=== PATIENT | male | born 1965 | race Caucasian/White ===

== ENCOUNTER → 2016-11-10 | Outpatient (CLI) | payer OTHER ==
--- NOTE | 2016-11-10 12:02 | XR ---
EXAMINATION TYPE: XR shoulder complete LT DATE OF EXAM: 11/10/2016 11:57 AM COMPARISON: NONE HISTORY: Pain TECHNIQUE: Three views are submitted. FINDINGS: The osseous structures are intact. There is no acute fracture or dislocation. Hypertrophic change of the AC joint could result in impingement of the rotator cuff. IMPRESSION: 1. No acute process. 2. Hypertrophic change of the AC joint. Consider rotator cuff injury.
== END ==
LOC: RADXRMAIN 11:43
PROVIDERS: ATTEND Emergency Medicine
DX: S43.402A Unspecified sprain of left shoulder joint, initial encounter (principal)

== ENCOUNTER → 2016-11-18 | Outpatient (CLI) | payer OTHER ==
--- NOTE | 2016-11-18 09:32 | MR ---
EXAMINATION TYPE: MR shoulder LT wo con DATE OF EXAM: 11/18/2016 9:22 AM COMPARISON: X-rays 11/14/2016 HISTORY: Left shoulder pain TECHNIQUE: Multiplanar, multisequence imaging of the left shoulder is performed without contrast. FINDINGS: Rotator Cuff: Subscapularis demonstrates increased signal near its insertion compatible with tendinos is. Partial intrasubstance tearing excluded. Supraspinatus and infraspinatus tendons are intact with no evidence of tear. There is signal along the undersurface of the supraspinatus tendon Acromioclavicular Joint: Hypertrophic change of the AC joint does result in mild mass effect upon the supraspinatus muscle. Glenohumeral Joint: Glenohumeral joint is maintained. Inferior glenohumeral ligament. No sizable join t effusion. Labrum: The labrum appears grossly intact given limitation of non-arthrogram study. Biceps Tendon: There is increased fluid surrounding the biceps tendon and degree of subluxation of th e tendon from the groove. Biceps anchor intact. Intracapsular portion demonstrates increased signal. Bone marrow signal: Benign cystic change involving the humerus.. Other: No additional significant abnormality is appreciated. IMPRESSION: 1. Bicipital tendinosis with subluxation of the tendon bicipital groove. 2. Subscapularis tendinosis with partial intrasubstance tear near the insertion suspected with no ret raction or through thickness tear. 3. Mild impingement secondary to hypertrophic change of the AC joint. 4. Tendinosis spinatus tendon with no definite through thickness tear or retraction
== END | disposition home or self-care (01) ==
LOC: RADMRIMAIN 08:43
PROVIDERS: ATTEND Orthopaedic Surgery
DX: S46.912A Strain of unspecified muscle, fascia and tendon at shoulder and upper arm level, left arm, initial encounter (principal); M67.814 Other specified disorders of tendon, left shoulder

== ENCOUNTER → 2017-09-18 | Outpatient (CLI) | payer BC ==
[2017-09-18 13:49] LABS: Basophils % (A) 1 %; Eosinophils % (A) 1 %; HGB 16.3 gm/dL (13.0-17.5); Lymphocytes # (A) 1.2 k/uL (1.0-4.8); Lymphocytes % (A) 23 %; MCH 30.2 pg (25.0-35.0); MCHC 31.9 g/dL (31.0-37.0); MCV 94.4 fL (80.0-100.0); Mean Platelet Volume 7.8; Monocytes # (A) 0.2 k/uL (0-1.0); Monocytes % (A) 4 %; Neutrophils # (A) 3.8 k/uL (1.3-7.7); Neutrophils % (A) 70 %; Platelet Count 186 k/uL (150-450); RBC 5.41 m/uL (4.30-5.90); RDW 14.2 % (11.5-15.5); WBC 5.4 k/uL (3.8-10.6)
[2017-09-18 14:11] LABS: Potassium 4.3 mmol/L (3.5-5.1)
== END | disposition home or self-care (01) ==
LOC: LABPAT 13:16
PROVIDERS: ATTEND Orthopaedic Surgery
DX: Z01.812 Encounter for preprocedural laboratory examination (principal); M23.92 Unspecified internal derangement of left knee
CPT/HCPCS: 36415; 80051; 85025

== ENCOUNTER → 2017-09-22 | Day surgery (SDC) | payer BC ==
[2017-09-14 16:31] VITALS: BMI 25.8
--- NOTE | 2017-09-21 10:22 | HP ---
HISTORY AND PHYSICAL CHIEF COMPLAINT: Left knee pain. 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 He notes he tripped over a gas line at a gas station and twisted his knee. He has had pain since. He notes intermittent giving way. He notes it does limit him. He has tried medications with only partial temporary relief. PAST MEDICAL HISTORY: Significant for asthma and previous deep venous thrombosis. PAST SURGICAL HISTORY: Significant for right knee arthroscopy with ACL reconstruction. CURRENT MEDICATIONS: 1. Aspirin. 2. Zocor. 3. Ibuprofen. He denies drug allergies. FAMILY HISTORY: Significant for diabetes and heart disease. SOCIAL HISTORY: Negative for current tobacco or alcohol use. 16 POINT REVIEW OF SYSTEMS: Otherwise reviewed and is noncontributory. On examination, the patient is approximately 5 foot 9, 175 pounds of mesomorphic habitus. He has painless passive motion of the left hip. Straight leg raise is negative. Active motion left knee -6 to 120 degrees of flexion. He has mild effusion. He is tender about the medial joint line. Collaterals are stable, Gerald is negative, Mark's elicits medial pain. His distal neurovascular exam appears intact in the left lower extremity. MRI report for the left knee shows evidence of a posterior medial meniscal tear. IMPRESSION: Left knee internal derangement with symptomatic medial meniscal tear. RECOMMENDATION: I talked to the patient at length regarding his treatment options. At this point, he is quite symptomatic despite conservative measures with medications and injection. After a thorough discussion, he opts to proceed with surgery. We will plan to proceed with arthroscopic evaluation with probable partial medial meniscectomy. We will likely perform that as an outpatient procedure. MMODL / IJN: [id number] /
[~2017-09-22] MED LIST: DEXAMETHASONE SOD PHOSPHATE 10 MG/ML 1 ML VIAL IV ONE; EPINEPHrine (PF) 1 ML in SODIUM CHLORIDE 0.9% IRRIGATIO 3,000 ML IRRIGATION ONE; LACTATED RINGERS 1,000 ML IV SCH; LIDOCAINE 1% INJ 10MG/ML (20 ML MDV) ONE; MIDAZOLAM 2 MG/2 ML VIAL IV PRN; MIDAZOLAM 2 MG/2 ML VIAL ONE; MORPHINE SULFATE 4 MG/ML SYRINGE IV PRN; ONDANSETRON 4 MG/2 ML VIAL IVP ONE; PROPOFOL 10 MG/ML 20 ML VIAL IV ONE; SCOPOLAMINE 1.5MG/72HR PATCH TRANSDERM ONE; ceFAZolin IN SWFI 2 GM/20 ML SYRINGE IVP ONE; fentaNYL (PF) 50 MCG/ML 2 ML AMP ONE
[2017-09-22 10:18] VITALS: RESP 16
--- NOTE | 2017-09-22 12:33 | P.OP ---
Date of Procedure: 09/22/17 Preoperative Diagnosis: Left knee internal derangement Postoperative Diagnosis: Left knee posterior medial meniscal tear/grade 2 chondral injury anterior medial portion medial tibial plateau/reactive synovitis of the medial and patellofemoral compartments Procedure(s) Performed: Left knee arthroscopic partial medial meniscectomy/medial tibial chondrectomy/ partial synovectomy of the medial and patellofemoral compartments Anesthesia: FARSHAD Surgeon: Phani Rajan Estimated Blood Loss (ml): 10 Pathology: none sent Condition: stable Disposition: PACU Indications for Procedure: The patient's a 52-year-old male who presents with progressive left knee pain and mechanical symptoms after a previous injury. A discussion of the risks and benefits of continued conservative measures versus operative intervention was made with the patient. He opted to proceed with surgery. Operative risks to include infection, neurovascular injury, development of blood clots, possible incomplete resolution of symptoms, possible recurrence of symptoms and need for subsequent procedures was discussed. Informed consent was obtained. Operative Findings: As below Description of Procedure: The patient was brought to the operating room, and after induction of general anesthesia examined the left knee. Collaterals were stable, Gerald was negative, and posterior drawer was negative. The left lower extremity was prepped and draped in normal fashion. A superior lateral portals made through a 3 mm skin incision superior and lateral to the patella. This was used for outflow. A lateral portals made through a 5 mm vertical skin incision lateral to the patella tendon above the joint line. Diagnostic arthroscopy was performed. A medial portal was made through a similar incision medial to the patella tendon above the joint line. On inspection of the medial compartment, he was noted to have an oblique tear involving the posterior horn of the medial meniscus in the white-8 junction. This was not amenable to repair. This was debrided back to stable base with straight baskets and a motorized shaver. The edges were contoured. The remaining medial meniscus was stable and intact. A grade 2 chondral injury was noted involving the anterior medial portion medial tibial plateau. The loose chondral flap was debrided back to stable base with a motorized shaver. Reactive synovitis involving the anterior medial as well as the patellofemoral compartment was debrided with a motorized shaver. On inspection of the notch, the anterior cruciate ligament appeared to be intact. On inspection of the lateral compartment, no significant meniscal or cartilage pathology was noted. On inspection patellofemoral articulation, minimal degenerative changes were noted. The gutters were clear debris. The knee was then thoroughly irrigated. The portals were closed with Steri-Strips. A sterile dressing was applied in addition to a compression stocking. Patient was awoken from general anesthesia and transferred to recovery room in good condition. Blood loss was estimated at 10 mL. No complications were incurred.
[2017-09-22 12:48] VITALS: TEMP 96.9
[2017-09-22 14:30] VITALS: BP 105/65; PULSE 61
== END | disposition home or self-care (01) ==
LOC: OR 09:57
PROVIDERS: ATTEND Orthopaedic Surgery
DX: S83.242A Other tear of medial meniscus, current injury, left knee, initial encounter (principal); S89.91XA Unspecified injury of right lower leg, initial encounter; M65.862 Other synovitis and tenosynovitis, left lower leg; E78.5 Hyperlipidemia, unspecified; G43.909 Migraine, unspecified, not intractable, without status migrainosus; J45.990 Exercise induced bronchospasm; Z86.718 Personal history of other venous thrombosis and embolism; Z79.82 Long term (current) use of aspirin; Z79.899 Other long term (current) drug therapy; W18.49XA Other slipping, tripping and stumbling without falling, initial encounter; Y92.524 Gas station as the place of occurrence of the external cause
CPT/HCPCS: 29881; J2250; J1100; J0690; J2405; J0171; J2001; J3010; J2704

== ENCOUNTER → 2020-05-22 | Outpatient (CLI) | payer BC ==
--- NOTE | 2020-05-22 15:52 | CT ---
EXAMINATION TYPE: CT angio chest DATE OF EXAM: 05/22/2020 COMPARISON: March 12, 2019 HISTORY: known aneurysm CT DLP: 355.4 mGycm CONTRAST: CTA thoracic aorta with 3-D reconstruction is performed and with IV Contrast, patient injected with 1 00 mL of Isovue 370. Contrast CTA of the thoracic aorta was performed from the lung apex through the upper abdomen. 3D re construction imaging obtained at a separate workstation. CT Chest: THORACIC AORTA: Ascending thoracic aortic aneurysm measuring 4.4 cm AP dimension versus 4.4 cm previo usly. The remainder of the thoracic aorta is of normal caliber. No complicating factors identified. M ild atheromatous changes seen. There is no evidence for dissection or periaortic collection. LUNGS: The lungs are clear and free of infiltrate. Stable nodular scar right lower lobe versus atelec tasis. No pulmonary nodule or mass is detected. No pleural effusion or CT evidence of interstitial l hilda disease. MEDIASTINUM: No evidence for mediastinal hematoma. The heart is not enlarged. No evidence for med iastinal mass or adenopathy. HILAR STRUCTURES: No evidence for mass. No hilar adenopathy is appreciated. OTHER: Nonobstructing left renal nephrolithiasis. IMPRESSION- Stable ascending thoracic aorta.
== END | disposition home or self-care (01) ==
LOC: RADCTMAIN 14:14
PROVIDERS: ATTEND Internal Medicine Cardiovascular Disease
DX: I71.2 Thoracic aortic aneurysm, without rupture (principal); Q23.1 Congenital insufficiency of aortic valve; Z86.718 Personal history of other venous thrombosis and embolism; I35.1 Nonrheumatic aortic (valve) insufficiency; I25.10 Atherosclerotic heart disease of native coronary artery without angina pectoris
CPT/HCPCS: 71275; Q9967

== ENCOUNTER → 2022-03-16 | Outpatient (CLI) | payer BC ==
--- NOTE | 2022-03-17 06:17 | CT ---
EXAMINATION TYPE: CT abdomen pelvis wo con DATE OF EXAM: 03/16/2022 HISTORY: Hematuria CT DLP: 426.5 mGycm. Automated Exposure Control for Dose Reduction was Utilized. TECHNIQUE: CT scan of the abdomen and pelvis is performed without oral or IV contrast. COMPARISON: NONE FINDINGS: Within the limitations of a non-contrast study, the following observations are made. LUNG BASES: Mild posterior bibasilar linear scarring and/or atelectasis.. LIVER/GB: Contracted gallbladder. PANCREAS: No significant abnormality is seen. SPLEEN: No significant abnormality is seen. ADRENALS: No significant abnormality is seen. KIDNEYS: There is 8 mm calculus in the lower pole pelvis left kidney coronal image 52. There is punct ate 1 to 2 mm calculus right kidney midpole level axial image 54. There is 1.4 cm round hypodense les ion suspect simple thin-walled cyst upper pole right kidney coronal image 59. Prominence of the renal pelvises bilaterally without calyceal dilatation consistent with extrarenal pelvis slightly greater on the right. No hydroureter or obstructing ureter calculi. No intraluminal calculi in the bladder. BOWEL: No significant abnormality is seen. GENITAL ORGANS: No gross abnormality seen. LYMPH NODES: No greater than 1cm abdominal or pelvic lymph nodes are appreciated. OSSEOUS STRUCTURES: No significant abnormality is seen. OTHER: No significant additional abnormality is seen. IMPRESSION: There is dominant 8 mm lower pole left renal calculus within the lower renal pelvis likel y accounting for patient's symptoms of hematuria.
== END | disposition home or self-care (01) ==
LOC: RADCTMAIN 18:50
PROVIDERS: ATTEND Urology
DX: N20.0 Calculus of kidney (principal)
CPT/HCPCS: 74176

== ENCOUNTER → 2022-04-19 | Outpatient (CLI) | payer BC ==
[2022-04-19 14:41] LABS: Basophils # (A) 0.03 X 10*3/uL (0.00-0.10); Basophils % (A) 0.7 %; Eosinophils # (A) 0.05 X 10*3/uL (0.04-0.35); Eosinophils % (A) 1.1 %; HCT 44.4 % (39.6-50.0); Immature Grans, Automated 0 %; Lymphocytes # (A) 1.26 X 10*3/uL (0.90-5.00); Lymphocytes % (A) 28.3 %; MCH 31.5 pg (27.0-32.0); MCHC 33.8 g/dL (32.0-37.0); MCV 93.3 fL (80.0-97.0); Mean Platelet Volume 10.5 fL (9.5-12.2); Monocytes # (A) 0.48 X 10*3/uL (0.20-1.00); Monocytes % (A) 10.8 %; NRBC Per 100 WBC 0 /100 WBCS (0.0-0.0); Neutrophils # (A) 2.63 X 10*3/uL (1.80-7.70); Neutrophils % (A) 59.1 %; Platelet Count 174 X 10*3/uL (140-440); RBC 4.76 X 10*6/uL (4.40-5.60); RDW 12.7 % (11.5-14.5); WBC 4.45 X 10*3/uL (4.50-10.00)
[2022-04-19 14:49] LABS: African American GFR (CKD) 82.9 (60.0-200.0); Anion Gap 8.7 mmol/L (10.00-18.00); Blood Urea Nitrogen 11.4 mg/dL (9.0-27.0); Calcium 8.9 mg/dL (8.7-10.3); Carbon Dioxide 25.1 mmol/L (20.0-27.5); Non-African American GFR(CKD) 71.5 (60.0-200.0); Potassium 4.5 mmol/L (3.5-5.5)
== END | disposition home or self-care (01) ==
LOC: LABPAT 10:18
PROVIDERS: ATTEND Urology
DX: Z01.812 Encounter for preprocedural laboratory examination (principal); N20.0 Calculus of kidney
CPT/HCPCS: 80048; 85025

== ENCOUNTER → 2022-06-06 | Outpatient (CLI) | payer BC ==
--- NOTE | 2022-06-06 12:14 | XR ---
EXAMINATION TYPE: XR KUB DATE OF EXAM: 06/06/2022 10:18 AM CLINICAL HISTORY: Kidney calculus. TECHNIQUE: Two supine KUB images of the abdomen are obtained. COMPARISON: Most recent abdominal x-ray April 28, 2022. FINDINGS: Prior visualized 9 mm left renal calculus mid to lower pole level now there is not clearly identified. No new right or left-sided nephrolithiasis clearly seen. Slightly suboptimal due to overl alfredo colonic fecal debris. Vascular calcification right pelvis redemonstrated. Overall nonobstructive bowel gas pattern. Visualized osseous structures are intact. Lung bases are cl ear. IMPRESSION: As above. Suspect successful treatment of 9 mm left renal calculus.
--- NOTE | 2022-06-06 15:53 | US ---
EXAMINATION TYPE: US kidneys/renal and bladder DATE OF EXAM: 06/06/2022 COMPARISON: 12/31/2013 CLINICAL HISTORY: 56-year-old male N20.0 CALCULUS OF KIDNEYS. Follow up kidney stones TECHNIQUE: Multiple sonographic images of the kidneys and bladder are obtained. FINDINGS: EXAM MEASUREMENTS: Right Kidney: 11.5 x 4.9 x 5.5 cm Left Kidney: 12.1 x 4.6 x 4.8 cm Right Kidney: 1.8cm cyst superior pole, mild hydronephrosis Left Kidney: 0.9cm cyst superior pole, mild hydronephrosis Bladder: wnl Bilateral Jets seen: yes IMPRESSION: There appears to be bilateral mild hydronephrosis. This appearance is similar compared to 12/31/2013. Unclear if this relates to some degree of chronic UPJ obstruction. Follow-up as clinically indicated .
== END | disposition home or self-care (01) ==
LOC: RADUSWWP 09:33
PROVIDERS: ATTEND Urology
DX: N13.30 Unspecified hydronephrosis (principal)
CPT/HCPCS: 74018; 76770

== ENCOUNTER 2024-12-07 15:21 | Observation (INO) | payer BC ==
--- NOTE | 2024-12-07 15:50 | ED ---
Chest Pain HPI - General Chief Complaint: Chest Pain Stated Complaint: chest pain Time Seen by Provider: 12/07/24 15:29 Source: patient, RN notes reviewed, old records reviewed Mode of arrival: ambulatory Limitations: no limitations - History of Present Illness Initial Comments: This is a 59 male to the ER for evaluation patient comes into the ER for ev aluation from urgent care for exertional dyspnea. Patient does have history of valve issues and does follow cardiology. Patient states he is an avid runner and recently has been unable to exercise or workout secondary to severe dyspnea when doing any activities and then chest pain today chest pain is persistent here in the emergency department tonight, no history of prior stress test no history of heart disease MD Complaint: chest pain, other (Shortness of breath and exertional dyspnea for weeks) -: hour(s) Onset: during exertion Pain Location: left chest Pain Radiation: LUE Severity: mild Severity scale (1-10): 2 Quality: tightness Consistency: intermittent Improves With: nothing Worsens With: nothing Treatments Prior to Arrival: none - Related Data Home Medications Medication Instructions Recorded Confirmed Simvastatin [Zocor] 40 mg PO HS 09/14/17 12/07/24 Apixaban [Eliquis] 5 mg PO BID 04/28/22 12/07/24 lisinopriL 2.5 mg PO HS 04/28/22 12/07/24 Albuterol Sulfate/Budesonide 1 puff INHALATION RT-QID PRN 12/07/24 12/07/24 [Airsupra 90-80 Mcg Inhaler] Ibuprofen [Motrin Ib] 200 mg PO Q6H PRN 12/07/24 12/07/24 Allergies Allergy/AdvReac Type Severity Reaction Status Date / Time No Known Allergies Allergy Verified 12/07/24 17:17 Review of Systems ROS Statement: Those systems with pertinent positive or pertinent negative responses have been documented in the HPI. ROS Other: All systems not noted in ROS Statement are negative. EKG Findings - EKG Comments: EKG Findings:: EKG is sinus bradycardia 48 NJ 179 QRS 102 QTc 425 - EKG Results: EKG: interpreted by JACKY Past Medical History Past Medical History: Asthma, Deep Vein Thrombosis (DVT) Additional Past Medical History / Comment(s): EXERCISE INDUCED ASTHMA, MIGRAINES, TORN LEFT MENISCUS History of Any Multi-Drug Resistant Organisms: None Reported Past Surgical History: Hernia Repair, Orthopedic Surgery Additional Past Surgical History / Comment(s): HERNIA X2, RIGHT MENISCUS, LEFT KNEE SURGERY, RIGHT ACL. Past Anesthesia/Blood Transfusion Reactions: No Reported Reaction Additional Past Anesthesia/Blood Transfusion Reaction / Comment(s): DIFFICULTY WAKING UP- STATES GROGGY FOR HOURS . Past Psychological History: No Psychological Hx Reported Smoking Status: Never smoker Past Alcohol Use History: Rare Past Drug Use History: None Reported - Past Family History Mother Family Medical History: No Reported History Father Family Medical History: Blood Disorder General Exam Limitations: no limitations General appearance: alert, in no apparent distress Head exam: Present: atraumatic, normocephalic, normal inspection Eye exam: Present: normal appearance, PERRL, EOMI. Absent: scleral icterus, conjunctival injection, periorbital swelling ENT exam: Present: normal exam, mucous membranes moist Neck exam: Present: normal inspection. Absent: tenderness, meningismus, lymphadenopathy Respiratory exam: Present: normal lung sounds bilaterally. Absent: respiratory distress, wheezes, rales, rhonchi, stridor Cardiovascular Exam: Present: regular rate, normal rhythm, normal heart sounds. Absent: systolic murmur, diastolic murmur, rubs, gallop, clicks GI/Abdominal exam: Present: soft, normal bowel sounds. Absent: distended, tenderness, guarding, rebound, rigid Extremities exam: Present: normal inspection, full ROM, normal capillary refill. Absent: tenderness, pedal edema, joint swelling, calf tenderness Back exam: Present: normal inspection Neurological exam: Present: alert, oriented X3, CN II-XII intact Psychiatric exam: Present: normal affect, normal mood Skin exam: Present: warm, dry, intact, normal color. 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 sent in by a medical professional or institution (, JORGE, MILL MACHINIST, urgent care, hospital, or retirement...) When possible be specific @ -no Did you speak to anyone other than the patient for history (EMS, parent, family, police, friend...)? What history was obtained from this source @ -no Did you review nursing and triage notes (agree or disagree)? Why? @ -agree Are old charts reviewed (outside hosp., previous admission, EMS record, old EKG, old radiological studies, urgent care reports/EKG's, retirement records)? Report findings @ -yes Differential Diagnosis (chest pain, altered mental status, abdominal pain women, abdominal pain men, vaginal bleeding, weakness, fever, dyspnea, syncope, headache, dizziness, GI bleed, back pain, seizure, CVA, palpatations, mental health, musculoskeletal)? @ -prior EKG interpreted by me (3pts min.). @ -yes X-rays interpreted by me (1pt min.). @ -yes negative for acute disease CT interpreted by me (1pt min.). @ -no U/S interpreted by me (1pt. min.). @ -no What testing was considered but not performed or refused? (CT, X-rays, U/S, labs)? Why? @ -none What meds were considered but not given or refused? Why? @ -none Did you discuss the management of the patient with other professionals (professionals i.e. , JORGE, MILL MACHINIST, lab, RT, psych nurse, social studies teacher, hat body sorter, teacher, medical corps officer, immigration case worker)? Give summary @ -no Was smoking cessation discussed for >3mins.? @ -no Was critical care preformed (if so, how long)? @ -no Were there social determinants of health that impacted care today? How? (Homelessness, low income, unemployed, alcoholism, drug addiction, transportation, low edu. Level, literacy, decrease access to med. care, long term, rehab)? @ -none Was there de-escalation of care discussed even if they declined (Discuss DNR or withdrawal of care, Hospice)? DNR status @ -no What co-morbidities impacted this encounter? (DM, HTN, Smoking, COPD, CAD, Cancer, CVA, ARF, Chemo, Hep., AIDS, mental health diagnosis, sleep apnea, morbid obesity)? @ -none Was patient admitted / discharged? Hospital course, mention meds given and route, prescriptions, significant lab abnormalities, going to OR and other pertinent info. @ - Undiagnosed new problem with uncertain prognosis? @ -no Drug Therapy requiring intensive monitoring for toxicity (Heparin, Nitro, Insulin, Cardizem)? @ -no Were any procedures done? @ -no Diagnosis/symptom? @ - Acute, or Chronic, or Acute on Chronic? @ -Acute Uncomplicated (without systemic symptoms) or Complicated (systemic symptoms)? @ -Complicated Side effects of treatment? @ -no Exacerbation, Progression, or Severe Exacerbation? @ -exacerbation Poses a threat to life or bodily function? How? (Chest pain, [place], CA, pneumonia, PE, COPD, DKA, ARF, appy, cholecystitis, CVA, Diverticulitis, Homicidal, Suicidal, threat to staff... and all critical care pts) @ -yes Reevaluation #5: Differential Chest Pain: Stable Angina, Unstable Angina, STEMI, NSTEMI Aortic Dissection, Pneumothorax, Musculoskeletal, Esophageal Spasm GERD, Cholecystitis, Pancreatitis, Zoster, this is not meant to be an all-inclusive list. - Consultations Consultation #1: Spoke with [facility] who agrees to admit this patient Chest Pain MDM - MDM 59 male on Eliquis for DVT DVT with factor V, patient has exertional dyspnea and chest pain and will admit for cardiology evaluation Disposition Clinical Impression: Chest pain, Exertional dyspnea Disposition: ADMITTED IP TO THIS [facility] Condition: Good Is patient prescribed a controlled substance at d/c from ED?: No Referrals: Gurpreet Carbone DO [Primary Care Provider] - 1-2 days Time of Disposition: 17:00
[2024-12-07 16:26] LABS: Basophils % (A) 0 %; Eosinophils # (A) 0.1 k/uL (0-0.7); Eosinophils % (A) 1 %; HCT 39.4 % (39.0-53.0); HGB 12.2 gm/dL (13.0-17.5); Hypochromasia Moderate; Lymphocytes # (A) 1.6 k/uL (1.0-4.8); Lymphocytes % (A) 22 %; MCH 25.7 pg (25.0-35.0); MCV 82.9 fL (80.0-100.0); Mean Platelet Volume 7.9; Monocytes # (A) 0.5 k/uL (0-1.0); Monocytes % (A) 7 %; Neutrophils # (A) 4.9 k/uL (1.3-7.7); Neutrophils % (A) 68 %; Platelet Count 249 k/uL (150-450); RBC 4.75 m/uL (4.30-5.90); RDW 14.8 % (11.5-15.5); WBC 7.1 k/uL (3.8-10.6)
[2024-12-07 16:35] LABS: Partial Thromboplastin Time 23.6 sec (22.0-30.0); Prothrombin Time 10.8 sec (10.0-12.5)
[2024-12-07 16:37] LABS: ALT 15 U/L (4-49); AST 20 U/L (17-59); African American GFR (CKD) 86 (>60 ml/min/1.73 sqM); Albumin 4.2 g/dL (3.5-5.0); Alkaline Phosphatase 63 U/L (38-126); Anion Gap 7 mmol/L; Blood Urea Nitrogen 16 mg/dL (9-20); Calcium 8.9 mg/dL (8.4-10.2); Carbon Dioxide 27 mmol/L (22-30); Chloride 101 mmol/L (98-107); Glucose 100 mg/dL (74-99); Lipase 202 U/L (23-300); Magnesium 2.2 mg/dL (1.6-2.3); Non-African American GFR(CKD) 75 (>60 ml/min/1.73 sqM); Potassium 4.4 mmol/L (3.5-5.1); Sodium 135 mmol/L (137-145); Total Bilirubin 0.8 mg/dL (0.2-1.3); Total Protein 6.6 g/dL (6.3-8.2)
--- NOTE | 2024-12-07 16:37 | XR ---
EXAMINATION TYPE: XR chest 1V portable DATE OF EXAM: 12/07/2024 4:29 PM COMPARISON: None. CLINICAL INDICATION: Male, 59 years old with history of chest pain, TECHNIQUE: XR chest 1V portable views of the chest are obtained. FINDINGS: Demonstrated are scattered senescent parenchymal change. There is no evidence for focal infiltrate. The heart is stable. Hilar and mediastinal structures are within normal limits. Degenerative changes are seen of the dorsal spine. IMPRESSION: 1. Chronic changes without evidence for acute pulmonary disease. [facility], , 12/07/2024 4:35 PM
[2024-12-07] MEDS: ASPIRIN 81 MG PO STA (16:43)
[2024-12-07] MEDS: SODIUM CHLORIDE 0.9% 1,000 ML IV STA (16:43)
[2024-12-07 16:44] LABS: NT-Pro-B-Type Natriuretic Pept 131 pg/mL
[2024-12-07] MEDS ORDERED: MORPHINE SULFATE 4 MG/ML SYRINGE IV PRN (17:33)
[2024-12-07] MEDS ORDERED: NALOXONE 0.4 MG/ML 1 ML VIAL IV PRN (17:33)
[2024-12-07] MEDS ORDERED: ONDANSETRON 4 MG/2 ML VIAL IVP PRN (17:33)
[2024-12-07] MEDS ORDERED: ALBUTEROL NEBULIZED 2.5 MG/3 ML INHALATION PRN (23:09)
[2024-12-08] MEDS: APIXABAN 5 MG TAB PO SCH (00:01)
--- NOTE | 2024-12-08 00:32 | P.HPIM ---
History of Present Illness H&P Date: 12/07/24 Chief Complaint: Chest pain 59 male, history of DVT, asthma, presents to the ER for evaluation patient comes into the ER for evaluation from urgent care for exertional dyspnea. Patient does have history of valve issues and does follow cardiology. Patient states he is an avid runner and recently has been unable to exercise or workout secondary to severe dyspnea when doing any activities and then chest pain today chest pain is persistent here in the emergency department tonight, no history of prior stress test no history of heart disease Blood work completed in ED reveals a WBC of 7.5, hemoglobin of 12.1 platelet count of 249, sodium 135, potassium 4.4, BUNs/creatinine of 16/1.08; troponin is less than 0.012 Chest x-ray reveals chronic changes without any acute pulmonary process EKG reveals sinus bradycardia; no acute ST or T wave change Review of Systems REVIEW OF SYSTEMS: CONSTITUTIONAL: No fever, no malaise, no fatigue. HEENT: No recent visual problems or hearing problems. Denied any sore throat. CARDIOVASCULAR: No chest pain, orthopnea, PND, no palpitations, no syncope. PULMONARY: No shortness of breath, no cough, no hemoptysis. GASTROINTESTINAL: No diarrhea, no nausea, no vomiting, no abdominal pain. NEUROLOGICAL: No headaches, no weakness, no numbness. HEMATOLOGICAL: Denies any bleeding or petechiae. GENITOURINARY: Denies any burning micturition, frequency, or urgency. MUSCULOSKELETAL/RHEUMATOLOGICAL: Denies any joint pain, swelling, or any muscle pain. ENDOCRINE: Denies any polyuria or polydipsia. The rest of the 14-point review of systems is negative. Past Medical History Past Medical History: Asthma, Deep Vein Thrombosis (DVT) Additional Past Medical History / Comment(s): EXERCISE INDUCED ASTHMA, MIGRAINES, TORN LEFT MENISCUS History of Any Multi-Drug Resistant Organisms: None Reported Past Surgical History: Hernia Repair, Orthopedic Surgery Additional Past Surgical History / Comment(s): HERNIA X2, RIGHT MENISCUS, LEFT KNEE SURGERY, RIGHT ACL. Past Anesthesia/Blood Transfusion Reactions: No Reported Reaction Additional Past Anesthesia/Blood Transfusion Reaction / Comment(s): DIFFICULTY WAKING UP- STATES GROGGY FOR HOURS . Past Psychological History: No Psychological Hx Reported Smoking Status: Never smoker Past Alcohol Use History: Rare Past Drug Use History: None Reported - Past Family History Mother Family Medical History: No Reported History Father Family Medical History: Blood Disorder Medications and Allergies Home Medications Medication Instructions Recorded Confirmed Type Simvastatin [Zocor] 40 mg PO HS 09/14/17 12/07/24 History Apixaban [Eliquis] 5 mg PO BID 04/28/22 12/07/24 History lisinopriL 2.5 mg PO HS 04/28/22 12/07/24 History Albuterol Sulfate/Budesonide 1 puff INHALATION RT-QID PRN 12/07/24 12/07/24 History [Airsupra 90-80 Mcg Inhaler] Ibuprofen [Motrin Ib] 200 mg PO Q6H PRN 12/07/24 12/07/24 History Allergies Allergy/AdvReac Type Severity Reaction Status Date / Time No Known Allergies Allergy Verified 12/07/24 17:17 Physical Exam Vitals: Vital Signs Temp Pulse Pulse Resp BP Pulse Ox 12/07/24 20:37 98.1 F 57 L 18 115/64 97 12/07/24 16:43 54 L 12/07/24 15:23 97.4 F L 54 L 18 171/76 100 Intake and Output 12/07/24 12/07/24 12/07/24 06:59 14:59 22:59 Other: Weight 79.379 kg General appearance: alert, in no apparent distress Head exam: Present: atraumatic, normocephalic, normal inspection Eye exam: Present: normal appearance, PERRL, EOMI. Absent: scleral icterus, conjunctival injection, periorbital swelling ENT exam: Present: normal exam, mucous membranes moist Neck exam: Present: normal inspection. Absent: tenderness, meningismus, lymphadenopathy Respiratory exam: Present: normal lung sounds bilaterally. Absent: respiratory distress, wheezes, rales, rhonchi, stridor Cardiovascular Exam: Present: regular rate, normal rhythm, normal heart sounds. Absent: systolic murmur, diastolic murmur, rubs, gallop, clicks GI/Abdominal exam: Present: soft, normal bowel sounds. Absent: distended, tenderness, guarding, rebound, rigid Extremities exam: Present: normal inspection, full ROM, normal capillary refill. Absent: tenderness, pedal edema, joint swelling, calf tenderness Back exam: Present: normal inspection Neurological exam: Present: alert, oriented X3, CN II-XII intact Skin exam: Present: warm, dry, intact, normal color. Absent: rash Results CBC & Chem 7: 12/07/24 16:17 12/07/24 16:17 Labs: Abnormal Lab Results - Last 24 Hours (Table) 12/07/24 12/07/24 Range/Units 16:17 16:17 Hgb 12.2 L (13.0-17.5) gm/dL Sodium 135 L (137-145) mmol/L Glucose 100 H (74-99) mg/dL Assessment and Plan Assessment: 1. Chest pain with exertional dyspnea; unstable angina -Patient is currently on Eliquis 5 mg twice daily which will be resumed; patient received aspirin 325 mg in ED; we will continue 81 mg daily -Monitor EKG and trend troponin -Order 2D echo -Consult cardiology for further evaluation 2. Asthma; not in exacerbation; continue home Symbicort inhaler therapy; Ventolin nebulizer treatments 4 times daily and as needed 3. History of DVT; Eliquis 5 mg twice daily 4. Hyperlipidemia; Zocor 40 mg daily 5. Hypertension; lisinopril 2.5 mg nightly DVT prophylaxis; SCDs/Eliquis CODE STATUS; full code
[2024-12-08] MEDS: SYMBICORT 80-4.5 MCG INHALER INHALATION SCH (08:21)
[2024-12-08] MEDS ORDERED: APIXABAN 5 MG TAB PO SCH (09:00)
[2024-12-08 09:52] LABS: Basophils # (A) 0.02 X 10*3/uL (0.00-0.10); Basophils % (A) 0.3 %; Eosinophils # (A) 0.07 X 10*3/uL (0.04-0.35); HGB 11.2 g/dL (13.0-17.0); MCH 26.1 pg (27.0-32.0); MCHC 31.1 g/dL (32.0-37.0); MCV 83.9 FL (80.0-97.0); Monocytes # (A) 0.56 X 10*3/uL (0.20-1.00); Monocytes % (A) 8.2 %; NRBC Per 100 WBC 0 X 10*3/uL (0.00-0.01); Neutrophils # (A) 4.43 X 10*3/uL (1.80-7.70); Neutrophils % (A) 65.1 %; Platelet Count 232 X 10*3/uL (140-440); RBC 4.29 X 10*6/uL (4.40-5.60); RDW 15.1 % (11.5-14.5); WBC 6.81 X 10*3/uL (4.50-10.00)
[2024-12-08 10:05] LABS: BUN/Creat Ratio 12.25 Ratio (12.00-20.00); Blood Urea Nitrogen 14.7 mg/dL (9.0-27.0); Calcium 8.7 mg/dL (8.7-10.3); Carbon Dioxide 24.6 mmol/L (21.6-31.8); Chloride 106 mmol/L (96-109); Glucose 88 mg/dL (70-110); Potassium 4.8 mmol/L (3.5-5.5); Sodium 139 mmol/L (135-145)
--- NOTE | 2024-12-08 12:52 | P.PN ---
Subjective Progress Note Date: 12/08/24 59 male, history of DVT, asthma, presents to the ER for evaluation patient comes into the ER for evaluation from urgent care for exertional dyspnea. Patient does have history of valve issues and does follow cardiology. Patient states he is an avid runner and recently has been unable to exercise or workout secondary to severe dyspnea when doing any activities and then chest pain today chest pain is persistent here in the emergency department tonight, no history of prior stress test no history of heart disease Blood work completed in ED reveals a WBC of 7.5, hemoglobin of 12.1 platelet count of 249, sodium 135, potassium 4.4, BUNs/creatinine of 16/1.08; troponin is less than 0.012 Chest x-ray reveals chronic changes without any acute pulmonary process EKG reveals sinus bradycardia; no acute ST or T wave change --Patient is seen and evaluated this morning; family at bedside; patient and family are very upset since echocardiogram has not been completed and they have been told by the nursing staff that echocardiogram will not be completed today; patient is frustrated since he was not told that echocardiogram is not available over the weekend -He awaits to be evaluated by cardiology for further recommendations Objective - Vital Signs Vital signs: Vital Signs Temp 98.1 F 12/07/24 20:37 Pulse 57 L 12/07/24 20:37 Resp 18 12/07/24 20:37 BP 115/64 12/07/24 20:37 Pulse Ox 97 12/07/24 20:37 FiO2 Intake & Output 12/07/24 12/07/24 12/08/24 06:59 18:59 06:59 Intake Total 540 Balance 540 Weight 79.379 kg 79.379 kg Intake: Oral 540 Other: # Voids 1 - Exam General appearance: alert, in no apparent distress Head exam: Present: atraumatic, normocephalic, normal inspection Eye exam: Present: normal appearance, PERRL, EOMI. Absent: scleral icterus, conjunctival injection, periorbital swelling ENT exam: Present: normal exam, mucous membranes moist Neck exam: Present: normal inspection. Absent: tenderness, meningismus, lymphadenopathy Respiratory exam: Present: normal lung sounds bilaterally. Absent: respiratory distress, wheezes, rales, rhonchi, stridor Cardiovascular Exam: Present: regular rate, normal rhythm, normal heart sounds. Absent: systolic murmur, diastolic murmur, rubs, gallop, clicks GI/Abdominal exam: Present: soft, normal bowel sounds. Absent: distended, tenderness, guarding, rebound, rigid Extremities exam: Present: normal inspection, full ROM, normal capillary refill. Absent: tenderness, pedal edema, joint swelling, calf tenderness Back exam: Present: normal inspection Neurological exam: Present: alert, oriented X3, CN II-XII intact Skin exam: Present: warm, dry, intact, normal color. Absent: rash - Labs CBC & Chem 7: 12/08/24 05:36 12/08/24 05:36 Labs: Abnormal Lab Results - Last 24 Hours (Table) 12/07/24 12/07/24 Range/Units 16:17 16:17 Hgb 12.2 L (13.0-17.5) gm/dL Sodium 135 L (137-145) mmol/L Glucose 100 H (74-99) mg/dL Assessment and Plan Assessment: 1. Chest pain with exertional dyspnea; unstable angina -Patient is currently on Eliquis 5 mg twice daily which will be resumed; patient received aspirin 325 mg in ED; we will continue 81 mg daily -Monitor EKG and trend troponin -Order 2D echo -Consult cardiology for further evaluation 2. Asthma; not in exacerbation; continue home Symbicort inhaler therapy; Ventolin nebulizer treatments 4 times daily and as needed 3. History of DVT; Eliquis 5 mg twice daily 4. Hyperlipidemia; Zocor 40 mg daily 5. Hypertension; lisinopril 2.5 mg nightly DVT prophylaxis; SCDs/Eliquis CODE STATUS; full code
[2024-12-08] MEDS: SODIUM CHLORIDE 0.9% 250 ML IV ONE (16:58)
--- NOTE | 2024-12-08 16:59 | CA ---
Transthoracic Echo Report Name: Kalpesh Sidhu Age: 59 Gender: M : 1965 Exam Date: 12/08/2024 12:12 Exam Location: [facility] Ht (in): 69 Wt (lb): 175 Ordering Physician: Gurpreet Mcmahan DO Attending/Referring Phys: [id number], Marj Video Effects Editor Carol Thao RDCS Procedure CPT: Indications: chf Cardiac Hx: Technical Quality: Good Contrast 1: Total Dose (mL): Contrast 2: Total Dose (mL): MEASUREMENTS (Male / Female) Normal Values 2D ECHO LV Diastolic Diameter PLAX 5.2 cm 4.2 - 5.9 / 3.9 - 5.3 cm LV Systolic Diameter PLAX 3.6 cm IVS Diastolic Thickness 1.4 cm 0.6 - 1.0 / 0.6 - 0.9 cm LVPW Diastolic Thickness 1.3 cm 0.6 - 1.0 / 0.6 - 0.9 cm LV Relative Wall Thickness 0.5 RV Internal Dim ED PLAX 3.1 cm LVOT Diameter 3.1 cm LA Systolic Diameter LX 3.5 cm 3.0 - 4.0 / 2.7 - 3.8 cm LV Diastolic Volume MOD BP 227.0 cm??? 67 - 155 / 56 - 104 cm??? LV Systolic Volume MOD BP 81.7 cm??? - 58 / 19 - 49 cm??? LV Ejection Fraction MOD BP 64.0 % >= 55 % LV Cardiac Index MOD BP 4701.1 cm???/min???m??? LV Diastolic Volume MOD 4C 224.5 cm??? LV Systolic Volume MOD 4C 96.8 cm??? LV Ejection Fraction MOD 4C 56.9 % LV Cardiac Index MOD 4C 4133.5 cm???/min???m??? LV Diastolic Length 4C 10.2 cm LV Systolic Length 4C 8.3 cm LV Diastolic Volume MOD 2C 225.7 cm??? LV Systolic Volume MOD 2C 66.4 cm??? LV Ejection Fraction MOD 2C 70.6 % LV Cardiac Index MOD 2C 5159.1 cm???/min???m??? LV Diastolic Length 2C 9.8 cm LV Systolic Length 2C 8.7 cm LA Volume 86.7 cm??? 18 - 58 / 22 - 52 cm??? LA Volume Index 43.9 cm???/m??? 16 - 28 cm???/m??? M-MODE Aortic Root Diameter MM 4.3 cm DOPPLER AV Peak Velocity 267.3 cm/s AV Peak Gradient 28.6 mmHg AV Mean Velocity 158.2 cm/s AV Mean Gradient 12.0 mmHg AV Velocity Time Integral 53.9 cm AI Peak Velocity 359.9 cm/s AI Peak Gradient 51.8 mmHg AI Pressure Half Time 789.1 ms LVOT Peak Velocity 131.0 cm/s LVOT Peak Gradient 6.9 mmHg LVOT Velocity Time Integral 33.0 cm LVOT Stroke Volume 255.7 cm??? LVOT Stroke Volume Index 131.0 ml/m??? LVOT Cardiac Index 8277.3 cm???/min???m??? AV Area Cont Eq vti 4.7 cm??? AV Area Cont Eq pk 3.8 cm??? MV Area PHT 3.3 cm??? Mitral E Point Velocity 80.3 cm/s Mitral A Point Velocity 60.2 cm/s Mitral E to A Ratio 1.3 MV Deceleration Time 230.0 ms TR Peak Velocity 280.2 cm/s TR Peak Gradient 31.4 mmHg FINDINGS Left Ventricle Left ventricular ejection fraction is estimated at 55-60 %. Left ventricular cavity size normal. Mildly increased septal wall thickness. Severely increased left ventricular diastolic volume. Moderately increased left ventricular systolic volume. No obvious regional wall motion abnormalities. VSD proximal to aorta. Possible anurysmal shunt across sinus of Valsava Right Ventricle Normal right ventricular size and function. Right ventricular systolic pressure within normal limits. Right Atrium Normal right atrial size. No right atrial thrombus or mass seen. Left Atrium Severely increased left atrial volume. Mildly increased left atrial area. No left atrial thrombus or mass present. Mitral Valve Mitral valve thickened. Trace mitral regurgitation. Aortic Valve Bicuspid AOV. Mild aortic stenosis with a peak gradient of 29 mmHg and a mean gradient of 12 mmHg. [id number] aortic regurgitation. Tricuspid Valve Structurally normal tricuspid valve. Mild tricuspid regurgitation. Pulmonic Valve Pulmonic valve not well visualized. Trace pulmonic regurgitation. Pericardium No pericardial effusion. Aorta Moderate aortic dilatation at the level of the sinuses of valsalva 43 mm CONCLUSIONS Normal LV systolic function Bicuspid aortic valve with mild aortic stenosis and moderate to severe aortic insufficiency Possible shunt across the sinus of Valsalva Previewed by: Dr. Nabeel Dee MD (Electronically Signed) Final Date: 08 December 2024 16:59
[2024-12-08] MEDS: BENZOCAINE SPRAY 1 EACH MM ONE (17:04)
[2024-12-08] MEDS: MIDAZOLAM 2 MG/2 ML VIAL IVP ONE ×2 (17:04→17:10)
[2024-12-08] MEDS: fentaNYL (PF) 50 MCG/1 ML VIAL IVP ONE (17:08)
--- NOTE | 2024-12-08 19:47 | P.PCN ---
Date of Procedure: 12/08/24 Operative Findings: TRANSESOPHAGEAL ECHOCARDIOGRAM GRAPPLE OPERATOR: LAYLA TOTH MD, RPVI INDICATION: Aortic insufficiency in this 59-year-old gentleman with bicuspid aortic valve SEDATION: Conscious sedation COMPLICATION: None LEVEL OF SEDATION Moderate with sedation length of 18 minutes PROCEDURE DESCRIPTION: After obtaining an informed consent, the patient was brought to transesophageal echocardiogram room. Pulse oximetry and heart monitors were attached to the patient. The patient throat was sprayed using lidocaine. The patient was turned into left lateral position. After that a bite guard was placed. After an appropriate conscious sedation was initiated, the transesophageal echocardiogram was advanced through a bite guard into the mid esophagus. A 2-D echocardiogram images, color Doppler images, continuous wave images, pulse-wave images, of various cardiac structure were performed. After that the transesophageal echocardiogram probe was advanced into the stomach and fixed to obtain transgastric view was. The probe was brought into the mid esophagus. Inter-atrial septum was interrogated using 2D images, color Doppler images, and then contrast study. After that transesophageal echocardiogram was withdrawn out and upon withdrawing the descending thoracic aorta all the way up to the arch was evaluated. CONCLUSION: 1. Bicuspid aortic valve with fusion of the right and left coronary cusps and severe aortic regurgitation with an eccentric jet with evidence of reversal of flow in the descending aorta 2. Normal LV systolic function with no significant wall motion abnormalities 3. Normal right ventricular dimension and systolic function 4. Mild biatrial enlargement 5. Intact interatrial septum 6. No pericardial effusion
[2024-12-08] MEDS: ATORVASTATIN 20 MG TAB PO SCH (21:08)
[2024-12-09 01:24] VITALS: BP 111/62
[2024-12-09 07:25] VITALS: PULSE 50; RESP 14; TEMP 97.4
--- NOTE | 2024-12-09 09:49 | P.GSCN ---
History of Present Illness Consult date: 12/09/24 Reason for Consult: Aortic insufficiency with bicuspid aortic valve, need for aortic valve replacement Requesting physician: Nabeel Dee History of present illness: This is a 59-year-old gentleman who follows outpatient with Dr. Carbone for internal medicine and Dr. Dee for cardiology. He has a previous medical his tory of factor V Leiden disorder with right lower extremity DVT x 2 on [facility] outpatient for anticoagulation, thoracic aneurysm without dissection followed by Dr. Dee unchanged in size according to chest CT from November 2023, hyperlipidemia, exercise-induced asthma, lifelong non-smoker, and family history of premature coronary artery disease with father having multiple myocardial infarction's less than 60 years old. This gentleman is reportedly very active, works out on a regular basis and runs daily. Unfortunately for the last several weeks he has been unable to be as active as he would like, has had progressive shortness of breath. Over the last couple of days he actually started to dev elop some chest pain so he reported to [facility] emergency room December 07, 2024 for evaluation and treatment. EKG in the emergency room demonstrated sinus bradycardia with heart rate in the high 40s. Chest x-ray revealed no acute cardiopulmonary process. Lab work revealed WBC 7.1, hemoglobin 12.2, creatinine 1.08, BNP 131, and troponins were negative x 3. He was admitted for evaluation and treatment with consultation placed to cardiology. 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 For further evaluation he underwent transesophageal echocardiogram yesterday by Dr. Dee confirming bicuspid aortic valve with fusion of the right and left coronary cusps, severe aortic regurgitation with eccentric jet and evidence of reversal of flow in the descending aorta, normal LV systolic function with no wall motion abnormalities, normal RV systolic function, mild biatrial enlargement, and inta ct intra-atrial septum. Due to these findings and the patient's known history of bicuspid aortic valve with increased symptomatology consultation was placed to cardiothoracic surgery for evaluation for aortic valve replacement. Review of Systems Review of systems was completed and was negative except as noted - Cardiovascular Reports as per HPI, Reports chest pain, Reports shortness of breath Past Medical History Past Medical History: Asthma, Blood Disorder, Deep Vein Thrombosis (DVT), Hyperlipidemia Additional Past Medical History / Comment(s): EXERCISE INDUCED ASTHMA, JACK JOSE, TORN LEFT MENISCUS; factor V Leiden disorder; bicuspid aortic valve with severe aortic regurgitation History of Any Multi-Drug Resistant Organisms: None Reported Past Surgical History: Hernia Repair, Orthopedic Surgery Additional Past Surgical History / Comment(s): HERNIA X2, RIGHT MENISCUS, LEFT KNEE SURGERY, RIGHT ACL. Past Anesthesia/Blood Transfusion Reactions: No Reported Reaction Additional Past Anesthesia/Blood Transfusion Reaction / Comm: DIFFICULTY WAKING UP- STATES GROGGY FOR HOURS . Past Psychological History: No Psychological Hx Reported Smoking Status: Never smoker Past Alcohol Use History: None Reported, Rare Past Drug Use History: None Reported - Past Family History Mother Family Medical History: Cancer Additional Family Medical History / Comment(s): Breast cancer Father Family Medical History: Blood Disorder, Coronary Artery Disease (CAD), Myocardial Infarction (OR) Additional Family Medical History / Comment(s): Multiple myocardial infarction's before the age of 60 Medications and Allergies Home Medications Medication Instructions Recorded Confirmed Type Simvastatin [Zocor] 40 mg PO HS 09/14/17 12/07/24 History Apixaban [Eliquis] 5 mg PO BID 04/28/22 12/07/24 History lisinopriL 2.5 mg PO HS 04/28/22 12/07/24 History Albuterol Sulfate/Budesonide 1 puff INHALATION RT-QID PRN 12/07/24 12/07/24 History [Airsupra 90-80 Mcg Inhaler] Ibuprofen [Motrin Ib] 200 mg PO Q6H PRN 12/07/24 12/07/24 History Allergies Allergy/AdvReac Type Severity Reaction Status Date / Time No Known Allergies Allergy Verified 12/07/24 17:17 Surgical - Exam Vital Signs Temp Pulse Resp BP Pulse Ox 97.4 F L 54 L 18 171/76 100 12/07/24 15:23 12/07/24 15:23 12/07/24 15:23 12/07/24 15:23 12/07/24 15:23 CONSTITUTIONAL: Awake and alert, appears comfortable, cooperative, well- developed, well-nourished, no pain, no acute distress EYES: Pupils equal, round, reactive to light, normal ocular movement ENT: Moist mucous membranes without oral lesions present NECK: No masses, no bruits, trachea midline RESPIRATORY: Lungs sounds clear to auscultation bilaterally. Respirations even, nonlabored. Currently on room air with oxygen saturation 98%. Strong cough. No chest wall deformities. No clubbing or cyanosis present CARDIOVASCULAR: S1, S2 present. Regular rate and rhythm, sinus rhythm to sinus bradycardia on telemetry. Palpable peripheral pulses bilaterally. No edema present. No calf pain or tenderness noted GASTROINTESTINAL: Abdomen soft, nontender, nondistended without masses or organomegaly noted. There is no rebound or guarding present. Active bowel sounds present 4 quadrants. GENITOURINARY: Deferred INTEGUMENTARY: Skin is warm and dry with evidence of good perfusion. NEUROLOGIC: Cranial nerves II through XII intact, normal coordination, no obvious motor or sensory deficits, speech is normal MUSKULOSKELETAL: Able to move all extremities, strength equal bilaterally, normal posture PSYCHIATRIC: Alert and oriented to person place and time, appropriate affect, intact judgment and insight CLINICAL FRAILTY SCORE 2 Results - Labs 12/08/24 05:36 12/08/24 05:36 Abnormal Lab Results - Last 24 Hours (Table) 12/08/24 Range/Units 05:36 RBC 4.29 L (4.40-5.60) X 10*6/uL Hgb 11.2 L (13.0-17.0) g/dL Hct 36.0 L (39.6-50.0) % MCH 26.1 L (27.0-32.0) pg MCHC 31.1 L (32.0-37.0) g/dL RDW 15.1 H (11.5-14.5) % Diabetes panel 12/08/24 Range/Units 05:36 Sodium 139 (135-145) mmol/L Potassium 4.8 (3.5-5.5) mmol/L Chloride 106 (96-109) mmol/L Carbon Dioxide 24.6 (21.6-31.8) mmol/L BUN 14.7 (9.0-27.0) mg/dL Creatinine 1.2 (0.6-1.5) mg/dL Glucose 88 (70-110) mg/dL Calcium 8.7 (8.7-10.3) mg/dL Calcium panel 12/08/24 Range/Units 05:36 Calcium 8.7 (8.7-10.3) mg/dL Pituitary panel 12/08/24 Range/Units 05:36 Sodium 139 (135-145) mmol/L Potassium 4.8 (3.5-5.5) mmol/L Chloride 106 (96-109) mmol/L Carbon Dioxide 24.6 (21.6-31.8) mmol/L BUN 14.7 (9.0-27.0) mg/dL Creatinine 1.2 (0.6-1.5) mg/dL Glucose 88 (70-110) mg/dL Calcium 8.7 (8.7-10.3) mg/dL Adrenal panel 12/08/24 Range/Units 05:36 Sodium 139 (135-145) mmol/L Potassium 4.8 (3.5-5.5) mmol/L Chloride 106 (96-109) mmol/L Carbon Dioxide 24.6 (21.6-31.8) mmol/L BUN 14.7 (9.0-27.0) mg/dL Creatinine 1.2 (0.6-1.5) mg/dL Glucose 88 (70-110) mg/dL Calcium 8.7 (8.7-10.3) mg/dL - Imaging Chest x-ray: report reviewed, image reviewed EKG: image reviewed Additional studies: Transthoracic and transesophageal echocardiograms reports reviewed with Dr. Corona Assessment and Plan Assessment: Severe aortic insufficiency, bicuspid aortic valve Preserved left ventricular function Shortness of breath, chest pain secondary to above History of factor V Leiden disorder with right lower extremity DVT x 2 on [facility] outpatient for anticoagulation Thoracic aneurysm without dissection followed by Dr. Dee unchanged in size according to chest CT from November 2023 Hyperlipidemia Exercise-induced asthma Lifelong non-smoker Family history of premature coronary artery disease with father having multiple myocardial infarction's less than 60 years old Plan: The patient was seen and examined on 6 N. ambulating in his room after a shower, currently denies any chest pain or shortness of breath. His was present. Chart/diagnostics reviewed. The case was discussed in detail with Dr. Corona. The usual perioperative course of surgical aortic valve replacement was discussed in detail with the patient and his , risks and benefits were reviewed, all questions were answered. The patient asked many questions regarding use of mechanical versus bioprosthetic valve, especially since he is on lifelong anticoagulation for his factor V disorder. To be discussed with Dr. Corona regarding appropriate valve. Preoperative testing was initiated, once completed we will calculate STS risk score and discussed with the patient. P atient will need heart catheterization to determine if concommitment CAD also exists which may add bypass to his aortic valve replacement, heart catheterization can be completed electively on an outpatient basis. Once preoperative testing has been completed patient may be discharged to home from cardiothoracic surgery standpoint to follow-up in the office with Dr. Corona on December 20. This was discussed with the patient and his and they are in agreement. This is also discussed with Dr. Dee and he is in agreement and will schedule his heart catheterization outpatient. Thank you Dr. Dee for this consult, we look forward to working with you in the care of your patient. I have personally seen and examined the patient, performed the documentation and the assessment and plan as written. Number of minutes spent on the visit: 30. Fabiola Emmanuel, LAMONT-C
--- NOTE | 2024-12-09 10:02 | US ---
EXAMINATION TYPE: Pre-Operative Non-Invasive Evaluation of the hand for Potential Radial Artery Alicia moreno, Measurements only DATE OF EXAM: 12/09/2024 8:49 AM CLINICAL INDICATION: Male, 59 years old with history of measurements only; Pre op, Preop- Cardiac Yrn shant TECHNIQUE:Grayscale and color Doppler imaging of the radial artery(s) SIDE PERFORMED: Left FINDINGS: Dominant hand: Right Duplex Findings: Radial Artery: Color flow seen Measurements in mm, transverse view: Left Radial: Proximal: 3.0 x 3.2 mm Mid: 3.0 x 2.7 mm Distal: 3.2 x 2.2 mm IMPRESSION: 1. No evidence for vascular occlusion. 2. Measurements as described above. [facility], , 12/09/2024 10:00 AM
--- NOTE | 2024-12-09 10:02 | US ---
EXAMINATION TYPE: US carotid duplex BILAT DATE OF EXAM: 12/09/2024 COMPARISON: NONE CLINICAL INDICATION: Male, 59 years old with history of preop cardiac surgery; Pre op. Hx hypertensio n. Additional History: .... TECHNIQUE: Grayscale, color Doppler and spectral Doppler evaluation of the bilateral carotid systems and vertebral arteries. Indirect Doppler criteria was utilized. FINDINGS: EXAM MEASUREMENTS: RIGHT: Peak Systolic Velocity (PSV) cm/sec ----- Right CCA: 94.4 ----- Right ICA: 101.7 ----- Right ECA: 103.0 ICA/CCA ratio: 1.1 RIGHT: End Diastole cm/sec ----- Right CCA: 23.1 ----- Right ICA: 29.2 ----- Right ECA: 0.0 LEFT: Peak Systolic Velocity (PSV) cm/sec ----- Left CCA: 97.8 ----- Left ICA: 130.2 ----- Left ECA: 99.5 ICA/CCA ratio: 1.3 LEFT: End Diastole cm/sec ----- Left CCA: 11.1 ----- Left ICA: 20.4 ----- Left ECA: 0.0 VERTEBRALS (direction of flow): Right Vertebral: Antegrade Left Vertebral: Antegrade Rhythm: Arrhythmia LIVESTOCK SLAUGHTERER NOTES: Slightly elevated velocity left prox and mid ICA. IMPRESSION: Right: No hemodynamically significant stenosis. Left: No hemodynamically significant stenosis. Criteria for Assigning % of Stenosis / Diameter reduction (Estimation based on the indirect measurements of the internal carotid artery velocities (ICA PSV). 1. Normal (no stenosis)=ICA PSV < 180 cm/s: ratio < 2.0: ICA EDV<40 cm/s. 2. Less than 50% stenosis=ICA PSV < 180 cm/s: ratio < 2.0: ICA EDV<40 cm/s. 3. 50 to 69% stenosis=ICA PSV of 180 to 230 cm/s: ration 2.0 ? 4.0: ICA EDV 40-100 cm/s. PSV 125-180 cm/sec and ICA/CCA PSV Ratio ? 2.0 is also consistent with 50-69% stenosis 4. Greater than 70% stenosis to near occlusion= ICA PSV > 230 cm/s: ratio > 4.0: ICA EDV > 100 cm/s. 5. Near occlusion= ICA PSV velocities may be low or undetectable: variable ratio and ICA EDV. 6. Total occlusion=unable to detect flow. [facility], , 12/09/2024 9:59 AM
[2024-12-09 10:04] LABS: Basophils % (A) 0 %; Eosinophils # (A) 0.1 k/uL (0-0.7); Eosinophils % (A) 1 %; HCT 43.5 % (39.0-53.0); HGB 13.5 gm/dL (13.0-17.5); Hypochromasia Moderate; Lymphocytes # (A) 1.3 k/uL (1.0-4.8); Lymphocytes % (A) 18 %; MCH 26.2 pg (25.0-35.0); MCHC 31.1 g/dL (31.0-37.0); MCV 84.1 fL (80.0-100.0); Mean Platelet Volume 7.9; Monocytes # (A) 0.5 k/uL (0-1.0); Monocytes % (A) 7 %; Neutrophils # (A) 5.2 k/uL (1.3-7.7); Neutrophils % (A) 73 %; Platelet Count 238 k/uL (150-450); RBC 5.17 m/uL (4.30-5.90); RDW 14.9 % (11.5-15.5); WBC 7.2 k/uL (3.8-10.6)
--- NOTE | 2024-12-09 10:06 | US ---
EXAMINATION TYPE: US vein mapping BILAT DATE OF EXAM: 12/09/2024 9:56 AM COMPARISON: NONE CLINICAL INDICATION: Male, 59 years old with history of preop cardiac surgery; Pre Op, Preop- Cardiac Surgery. Patient states he has hx of DVT in right leg 5 years ago TECHNIQUE: Grayscale and color Doppler imaging of the lower extremity venous system. SIDE PERFORMED: Bilateral FINDINGS: PATIENT HISTORY: Smoker: No Previous DVT: Yes in right leg Vascular Surgery: No Discoloration: No Hypertension: Yes Diabetes: No Paralysis: No Varicosities: Yes Edema: Yes right leg DUPLEX FINDINGS: Greater Saphenous: Color flow seen Measurements in mm: Right Greater Saphenous: Groin: 5.3 x 3.7 mm High Thigh: 4.6 x 3.6 mm Mid Thigh: 5.3 x 4.0 mm Above Knee: 3.6 x 3.2 mm Knee: 4.0 x 3.2 mm Below Knee: 4.6 x 2.7 mm Mid Calf: 4.0 x 2.4 mm At Ankle: 3.2 x 2.3 mm Left Greater Saphenous: Groin: 4.3 x 3.2 mm High Thigh: 2.6 x 2.1 mm Mid Thigh: 2.9 x 2.0 mm Above Knee: 2.9 x 1.7 mm Knee: 2.8 x 2.2 mm Below Knee: 2.5 x 2.1 mm Mid Calf: 3.4 x 1.9 mm At Ankle: 3.5 x 1.9 mm Veins appear to have intimal wall thickening bilateral GSV IMPRESSION: 1. No evidence for occlusion. 2. GSV measurements listed above. 3. Performing surgeon to determine viability as conduit. [facility], , 12/09/2024 10:03 AM
[2024-12-09 10:14] LABS: Partial Thromboplastin Time 23.8 sec (22.0-30.0)
[2024-12-09 10:16] LABS: ALT 15 U/L (4-49); AST 21 U/L (17-59); African American GFR (CKD) >90 (>60 ml/min/1.73 sqM); Albumin 4.5 g/dL (3.5-5.0); Albumin/Globulin Ratio 1.8; Alkaline Phosphatase 66 U/L (38-126); Anion Gap 7 mmol/L; Blood Urea Nitrogen 16 mg/dL (9-20); Calcium 9.4 mg/dL (8.4-10.2); Carbon Dioxide 29 mmol/L (22-30); Chloride 99 mmol/L (98-107); Globulin 2.5 g/dL; Glucose 73 mg/dL (74-99); Non-African American GFR(CKD) 80 (>60 ml/min/1.73 sqM); Potassium 4.4 mmol/L (3.5-5.1); Sodium 135 mmol/L (137-145)
--- NOTE | 2024-12-09 10:39 | CT ---
EXAMINATION TYPE: CT chest wo con DATE OF EXAM: 12/09/2024 10:36 AM COMPARISON: 11/13/2023. CLINICAL INDICATION: Male, 59 years old with history of eval aorta for clampability, aneurysm; PHH, e dejon aorta for clampability, aneurysm TECHNIQUE: Multiple axial images were obtained through the chest. Sagittal and coronal reformats were created for review. MIP was performed on a separate workstation. Contrast used: mL of (None if empty) Oral contrast used: (None if empty) CT DLP: 453 mGycm, Automated exposure control for dose reduction was used. FINDINGS: LUNGS/ PLEURA: No focal consolidation, pneumothorax or pleural effusion. Streaky atelectasis in the l hilda bases. AIRWAY: Patent and unremarkable. HEART: Size within normal limits. No significant coronary artery calcifications. Severe aortic valve leaflet calcifications. MEDIASTINUM: No gross evidence of adenopathy. VASCULATURE: No aortic aneurysm. Ascending thoracic aorta ectasia up to 4.6 cm. No significant ather osclerosis of the arterial vasculature. MUSCULOSKELETAL: No acute osseous abnormalities SOFT TISSUES/LYMPH NODES: Unremarkable. LOWER NECK: No significant findings. UPPER ABDOMEN: No significant findings. IMPRESSION: 1. Severe aortic leaflet calcification 2. No significant atherosclerosis of the arterial vasculature. 3. Ascending thoracic aorta dilation up to 4.6 cm. Follow up recommendations for incidental pulmonary nodules, if there are any, are per [employer] or [employer]. https://radiopaedia.org/articles/nalrxhfoic-zdomjqu-hdmpdxmon-[email or web address]?lang=us [facility], , 12/09/2024 10:37 AM
[2024-12-09 10:59] LABS: Appearance,Urine Clear (Clear); Bilirubin,Urine Negative (Negative); Blood,Urine Negative (Negative); Color,Urine Yellow; Glucose,Urine (UA) Negative (Negative); Ketones,Urine Negative (Negative); Leukocyte Esterase,Urine Negative (Negative); Nitrite,Urine Negative (Negative); PH, Urine 5.5 (5.0-8.0); Protein,Urine Negative (Negative); Specific Gravity,Urine 1.021 (1.001-1.035); Urobilinogen,Urine <2.0 mg/dL (<2.0)
[2024-12-09 15:42] LABS: LDL Cholesterol,Calculated 132.8 mg/dL (0.0-131.0)
[2024-12-09 15:50] LABS: Hepatitis A Antibody IgM Nonreactive (Nonreactive); Hepatitis B Core IgM Nonreactive (Nonreactive); Hepatitis B Surface Antigen Nonreactive (Nonreactive); Hepatitis C IgG Antibody Nonreactive (Nonreactive)
--- NOTE | 2024-12-12 09:49 | P.DS ---
Providers Date of admission: 12/07/24 17:33 Expected date of discharge: 12/09/24 Attending physician: Mat Lagos Consults: 12/07/24 17:33 Consult Physician Routine Consulting Provider: Nabeel Dee Consult Reason/Comments: cp Do you want consulting provider notified?: Yes 12/08/24 19:47 Consult Physician Routine Consulting Provider: Gisell Corona Consult Reason/Comments: Evaluation for AVR Do you want consulting provider notified?: Yes, Notify in am Primary care physician: Gurpreet Carbone Hospital Course: Final diagnosis -Chest pain with exertional dyspnea; unstable angina, status post SONY showing aortic insufficiency with bicuspid aortic valve and need for aortic valve replacement -Asthma; not in exacerbation -History of DVT maintained on Eliquis 5 mg twice daily -Hyperlipidemia -Hypertension history -GI prophylaxis -DVT prophylaxis; SCDs/Eliquis -full code Discharge disposition Patient is being discharged in a stable condition with guarded prognosis to home. Patient will follow-up with Dr. Carbone in the outpatient setting upon discharge. Patient is to continue with current medications and close outpatient follow-up with cardiology as well as CT surgery as scheduled. Total time taken is greater than 35 minutes. Hospital course This is a 59-year-old male who was recently admitted with chest pain being evaluated by cardiology and also CT surgery after undergoing SONY and was noted to have bicuspid aortic valve with fusion of the right and left coronary cusps and severe aortic regurgitation with an eccentric jet with evidence of reversal of flow into the descending aorta, normal LV systolic function with no significant wall motion abnormalities normal right ventricular dimensions and systolic function with mild biatrial enlargement intact interatrial septum and no pericardial effusion noted. CT surgery was consulted and initial labs and testing being started to discuss possible TAVR. Patient reports to feeling well and has been cleared by consultations and will be following up outpatient with cardiology as well as CT surgery. Please refer to consultation notes for further HPI. Patient has also been instructed to follow-up with primary care provider this week. Please refer to other consultation notes for further HPI. Currently no reports of chest pain, shortness of breath, or palpitations. Patient is afebrile. No reports of nausea or vomiting and patient is tolerating diet. Patient will be discharged home today. Guarded prognosis. Patient was instructed if he has any chest pain or symptoms to call 911 or report to nearest ER. Physical exam: Gen: This is a 59-year-old male who is awake, alert and oriented x 3, well- developed, well-nourished, appears older than stated age HEENT: Head is atraumatic, normocephalic. Pupils equal, round. Sclerae is anicteric. NECK: Supple. No JVD. No lymphadenopathy. No thyromegaly. LUNGS: Diminished breath sounds bilaterally otherwise clear to auscultation. No wheezes or rhonchi. No intercostal retractions. HEART: S1, S2 are muffled ABDOMEN: Soft. Bowel sounds are present. No masses. No tenderness. EXTREMITIES: No pedal edema. No calf tenderness. NEUROLOGICAL: Patient is awake, alert and oriented x3. Cranial nerves 2 through 12 are grossly intact. Please refer to medication reconciliation sheet for a list of medications. The impression and plan of care has been dictated by Irais Zendejas, Nurse Practitioner as directed. Dr. Demond MD I have performed a history and examination and MDM of this patient, discussed the same with the dictator, and agree with the dictator's assessment and plan as written ,documented as a scribe. Based on total visit time, I have performed more than 50% of the visit. Patient Condition at Discharge: Good Plan - Discharge Summary Discharge Rx Participant: No New Discharge Prescriptions: Continue Simvastatin [Zocor] 40 mg PO HS Apixaban [Eliquis] 5 mg PO BID Albuterol Sulfate/Budesonide [Airsupra 90-80 Mcg Inhaler] 1 puff INHALATION RT-QID PRN PRN Reason: SOB/Wheeze/Cough lisinopriL 2.5 mg PO HS Ibuprofen [Motrin Ib] 200 mg PO Q6H PRN PRN Reason: Pain Discharge Medication List Simvastatin [Zocor] 40 mg PO HS 09/14/17 [History] Apixaban [Eliquis] 5 mg PO BID 04/28/22 [History] lisinopriL 2.5 mg PO HS 04/28/22 [History] Albuterol Sulfate/Budesonide [Airsupra 90-80 Mcg Inhaler] 1 puff INHALATION RT- QID PRN 12/07/24 [History] Ibuprofen [Motrin Ib] 200 mg PO Q6H PRN 12/07/24 [History] Follow up Appointment(s)/Referral(s): Gurpreet Carbone DO [Primary Care Provider] - 1-2 days Nabeel Dee MD [STAFF PHYSICIAN] - 1 Week (Will need a heart catheterization Office will call patient with appointment ) Gisell Corona MD [STAFF PHYSICIAN] - 12/20/24 11:00 am Patient Instructions/Handouts: Heart Catheterization (DC), Aortic Valve Replacement (DC) Activity/Diet/Wound Care/Special Instructions: Activity limited until follow-up Follow-up with primary care provider on discharge Follow-up with cardiology outpatient for cardiac catheterization Follow-up with cardiothoracic surgery outpatient Continue taking medications as prescribed Discharge Disposition: HOME SELF-CARE
== END 2024-12-09 14:02 | disposition home or self-care (01) ==
LOC: EC 15:21 → 6NMEDSUR 17:33 → INTOOBSV 17:33 → OBSVTOIN 17:33 → 6NMEDSUR 20:42
PROVIDERS: ADMIT Hospitalist; ATTEND Hospitalist
DX: I20.0 Unstable angina (principal); I35.1 Nonrheumatic aortic (valve) insufficiency; Q23.81 Bicuspid aortic valve; D68.51 Activated protein C resistance; I71.20 Thoracic aortic aneurysm, without rupture, unspecified; E78.5 Hyperlipidemia, unspecified; J45.990 Exercise induced bronchospasm; I10 Essential (primary) hypertension; Z86.718 Personal history of other venous thrombosis and embolism; Z79.01 Long term (current) use of anticoagulants; Z79.899 Other long term (current) drug therapy; Z82.49 Family history of ischemic heart disease and other diseases of the circulatory system; Z79.51 Long term (current) use of inhaled steroids
CPT/HCPCS: 99285; 36415; 94760; 93005; 93312; 93320; 93306; 93325; 83880; 80061; 80053 ×2; 80048; 80074; 84443; 83690; 83735; 84484; 85025 ×3; 85610 ×2; 85730 ×2; 81003; 87070; 83036; 71045; 93931; 93970; 93880; 71250; G0378 ×3; J2250; J3010

== ENCOUNTER 2024-12-19 07:34 | Day surgery (SDC) | payer BC ==
[2024-12-17 14:34] VITALS: BMI 25.8
[~2024-12-19 07:34] MED LIST changes: +ALPRAZolam 0.25 MG TAB PO PRN; +ALPRAZolam 0.5 MG TAB PO PRN; -DEXAMETHASONE SOD PHOSPHATE 10 MG/ML 1 ML VIAL IV ONE; -EPINEPHrine (PF) 1 ML in SODIUM CHLORIDE 0.9% IRRIGATIO 3,000 ML IRRIGATION ONE; +HEPARIN SODIUM,PORCINE (1 ML) 2,500 UNIT in SODIUM CHLORIDE 0.9% 250 ML IRRIGATION PRN; +HEPARIN SODIUM,PORCINE 10,000 UNIT in SODIUM CHLORIDE 0.9% 1,000 ML IRRIGATION PRN; -LACTATED RINGERS 1,000 ML IV SCH; -LIDOCAINE 1% INJ 10MG/ML (20 ML MDV) ONE; -MIDAZOLAM 2 MG/2 ML VIAL IV PRN; -MIDAZOLAM 2 MG/2 ML VIAL ONE; -MORPHINE SULFATE 4 MG/ML SYRINGE IV PRN; +NITROGLYCERIN SL TABS 0.4 MG TAB SUBLINGUAL PRN; -ONDANSETRON 4 MG/2 ML VIAL IVP ONE; -PROPOFOL 10 MG/ML 20 ML VIAL IV ONE; -SCOPOLAMINE 1.5MG/72HR PATCH TRANSDERM ONE; -ceFAZolin IN SWFI 2 GM/20 ML SYRINGE IVP ONE; -fentaNYL (PF) 50 MCG/ML 2 ML AMP ONE
[2024-12-19 08:24] VITALS: RESP 16; TEMP 97.3
[2024-12-19] MEDS: IV FLUID CONTINUATION 1,000 ML IV ONE (08:25)
[2024-12-19] MEDS: SODIUM CHLORIDE 0.9% 1,000 ML in EMPTY BAG 1 BAG IV SCH (08:25)
[2024-12-19] MEDS: ASPIRIN 325 MG TAB PO ONE (08:25)
[2024-12-19] MEDS: ATORVASTATIN 80 MG TAB PO ONE (08:25)
[2024-12-19] MEDS: MIDAZOLAM 2 MG/2 ML VIAL IVP ONE (12:13)
[2024-12-19] MEDS: LIDOCAINE 1% INJ 10MG/ML (20 ML MDV) SQ ONE (12:21)
[2024-12-19] MEDS: VERAPAMIL SYRINGE (5 MG/10 ML) INTRAARTER ONE (12:21)
[2024-12-19] MEDS: HEPARIN SODIUM 1,000 UN/ML (10ML VL) IV ONE (12:25)
[2024-12-19] MEDS: MORPHINE SULFATE 4 MG/ML SYRINGE IVP ONE (12:28)
[2024-12-19] MEDS: FUROSEMIDE 10 MG/ML 4 ML VIAL IV ONE (12:30)
--- NOTE | 2024-12-19 12:37 | P.PCN ---
Date of Procedure: 12/19/24 Operative Findings: CARDIAC CATHETERIZATION PERFORMING PHYSICIAN: Nabeel Dee MD, RPVI PROCEDURE PERFORMED: 1. Selective right and left coronary angiogram 2. Left heart catheterization and aortic root angiogram 3. Ultrasound-guided access of the right radial artery INDICATION: Severe aortic insufficiency COMPLICATION: None APPROACH: Right radial artery LEVEL OF SEDATION: Moderate with a sedation length of 13 minutes PROCEDURE DESCRIPTION: After obtaining an informed consent, the patient was brought to cardiac geophysical laboratory supervisor. Local anesthesia was performed using lidocaine subcutaneously. The right radial artery was cannulated using Seldinger technique, under ultrasound guidance, the guidewire passed easily, following that we advanced a 5-Nigerien sheath dilator assembly, the wire and dilator were removed and sheath was flushed. Following that, 2 mg of verapamil along with 5000 unit heparin were given. Selective right and left coronary angiogram using a 5-Nigerien JR4 and JL 3.5 catheters. Following that we did left heart catheterization using 5-Nigerien pigtail catheter. Aortic root angiogram was performed using the pigtail catheter The procedure was completed there was no complication. SELECTIVE CORONARY ANGIOGRAM: The right coronary artery: Medium caliber vessel nondominant vessel Left main: Geographically normal The left circumflex: Large caliber vessel and a dominant vessel. The LCx proximally is angiographically normal and gives rise into an OM1. In the mid and distal portion is normal. Distally bifurcates into PDA and PLV branches both appear to be normal The left anterior descending artery: Large caliber vessel appears to be normal as well and gives rise into a large diagonal branch which seems to be normal with the LAD reach and wraps around the apex HEMODYNAMICS: LVEDP was 12 mmHg with mild gradient across aortic valve Aortic root angiogram: Was performed in the SW[place] projection and using a power injection was 4+ AI was identified CONCLUSION: 1. Normal coronary angiogram with dominant left coronary system 2. 4+ aortic insufficiency POSTPROCEDURE MANAGEMENT: The patient to be evaluated for AVR
[2024-12-19] MEDS: IOPAMIDOL-370 100ML BTL INJ ONE ×2 (12:38)
[2024-12-19] MEDS ORDERED: SODIUM CHLORIDE 0.9% 1,000 ML IV SCH (12:39)
[2024-12-19 16:14] VITALS: BP 119/63; PULSE 61
== END 2024-12-19 16:09 | disposition home or self-care (01) ==
LOC: CATHCVL 07:34
PROVIDERS: ATTEND Internal Medicine Interventional Cardiology
DX: I35.1 Nonrheumatic aortic (valve) insufficiency (principal); I77.810 Thoracic aortic ectasia; D68.51 Activated protein C resistance; I10 Essential (primary) hypertension; E78.5 Hyperlipidemia, unspecified; Q23.1 Congenital insufficiency of aortic valve; Z82.49 Family history of ischemic heart disease and other diseases of the circulatory system; Z86.718 Personal history of other venous thrombosis and embolism; Z79.899 Other long term (current) drug therapy
CPT/HCPCS: 94150; 93458; 93567; 99152; C1894; J2250; J2270; J1940; J2003; J1644; Q9967

== ENCOUNTER 2024-12-30 08:00 | Inpatient (IN) | payer BC ==
--- NOTE | 2025-01-07 14:27 | P.PN ---
Progress Note - Text Progress Note Date: 01/07/25 5 meter walk test completed without difficulty: #1 3.85 seconds #2 2.92 seconds #3 3.28 seconds
[2025-01-14] MEDS ORDERED: PAPAVERINE 360 MG in SODIUM CHLORIDE 0.9% 90 ML IV ONE (05:00)
[2025-01-14] MEDS ORDERED: CALCIUM CHLORIDE 100 MG/ML 10 ML SYRINGE IV ONE (05:00)
[2025-01-14] MEDS ORDERED: MANNITOL 25% 12.5 GM/50 ML VIAL IV ONE (05:00)
[2025-01-14] MEDS ORDERED: HEPARIN SODIUM 1,000 UN/ML (10ML VL) IV ONE (05:00)
[2025-01-14] MEDS ORDERED: ELECTROLYTE-A SOLUTION 1,000 ML with POTASSIUM CHLORIDE 40 MEQ, MAGNESIUM SULFATE 16 ME... IV ONE (05:00)
[2025-01-14] MEDS ORDERED: NITROGLYCERIN-D5W PMX 50 MG in DEXTROSE/WATER 1 250ML.BAG IV ONE (05:00)
[2025-01-14] MEDS ORDERED: ELECTROLYTE-A SOLUTION 1,000 ML with POTASSIUM CHLORIDE 100 MEQ, MAGNESIUM SULFATE 16 M... IV ONE (05:00)
[2025-01-14] MEDS ORDERED: PHENYLEPHRINE 40 MG in SODIUM CHLORIDE 0.9% 250 ML IV ONE (05:00)
[2025-01-14] MEDS ORDERED: CHLORHEXIDINE GLUCONATE 15 ML CUP MUCOUS MEM ONE (05:00)
[2025-01-14] MEDS ORDERED: PROTAMINE SULFATE 10 MG/ML 25 ML VIAL IV ONE (05:00)
[2025-01-14] MEDS ORDERED: propofoL 1,000 MG/100 ML VIAL IV ONE (05:00)
[2025-01-14] MEDS ORDERED: CLEVIDIPINE BUTYRATE 25 MG in EMPTY BAG 1 BAG IV ONE (05:00)
[2025-01-14] MEDS ORDERED: ceFAZolin 2 GM in DEXTROSE 5% IN WATER 50 ML IVPB ONE (05:00)
[2025-01-14] MEDS ORDERED: NITROGLYCERIN-D5W PMX 25 MG/250 ML BTL IV ONE (05:00)
[2025-01-14] MEDS ORDERED: PHENYLEPHRINE 10 MG/ML VIAL IV ONE (05:00)
[2025-01-14] MEDS ORDERED: MAGNESIUM SULFATE 16.24 MEQ in EMPTY SYRINGE 1 SYR IV ONE (05:00)
[2025-01-14] MEDS ORDERED: NOREPINEPHRINE 4 MG in SODIUM CHLORIDE 0.9% 250 ML IV ONE (05:00)
[2025-01-14] MEDS ORDERED: SODIUM BICARB 8.4% 50 ML SYR (1 MEQ/ML) IV ONE (05:00)
[2025-01-14] MEDS ORDERED: TRANEXAMIC ACID 2,000 MG in SODIUM CHLORIDE 0.9% 80 ML IV ONE (05:00)
[2025-01-14] MEDS ORDERED: HEPARIN SODIUM,PORCINE (1 ML) 5,000 UNIT in SODIUM CHLORIDE 0.9% 500 ML 500 ML IV ONE (05:00)
[2025-01-14] MEDS ORDERED: SODIUM CHLORIDE 0.9% 1,000 ML IV ONE (05:00)
[2025-01-14] MEDS ORDERED: ALBUMIN HUMAN 25% 50 ML IV ONE (05:00)
[2025-01-14] MEDS ORDERED: PROTAMINE SULFATE 250 MG in EMPTY BAG 1 BAG IV ONE (05:00)
[2025-01-14] MEDS ORDERED: ALBUMIN HUMAN 5% 500 ML IVPB ONE (05:00)
[2025-01-14] MEDS ORDERED: INSULIN REGULAR 100 UNIT in SODIUM CHLORIDE 0.9% 100 ML IV ONE (05:00)
[2025-01-14] MEDS ORDERED: NITROGLYCERIN SL TABS 0.4 MG TAB SUBLINGUAL ONE (05:00)
[2025-01-14] MEDS: IV FLUID CONTINUATION 1,000 ML IV ONE (05:53)
[2025-01-14] MEDS: METOPROLOL TARTRATE 12.5 MG TAB PO ONE (06:07)
[2025-01-14] MEDS: ATORVASTATIN 10 MG TAB PO ONE (06:07)
[2025-01-14] MEDS: LACTATED RINGERS 1,000 ML IV ONE (06:25)
[2025-01-14] MEDS: ASPIRIN 325 MG TAB PO ONE (06:31)
[2025-01-14] MEDS: MUPIROCIN 2% OINT 22 GM TUBE NASAL ONE (06:33)
[2025-01-14] MEDS ORDERED: WATER FOR INJECTION, STERILE 10 ML VIAL IV ONE (07:39)
[2025-01-14] MEDS ORDERED: fentaNYL (PF) 50 MCG/ML 50 ML VIAL ONE (07:39)
[2025-01-14] MEDS ORDERED: MIDAZOLAM HCL 10 MG/10 ML VIAL ONE (07:39)
[2025-01-14] MEDS ORDERED: VECURONIUM 10 MG VIAL IV ONE (07:39)
[2025-01-14] MEDS ORDERED: GLYCOPYRROLATE 0.2 MG/ML 2 ML VIAL ONE (07:39)
[2025-01-14] MEDS ORDERED: PROTAMINE SULFATE 10 MG/ML 5 ML VIAL ONE (07:39)
[2025-01-14] MEDS ORDERED: LIDOCAINE 2% SYG (PF) 100 MG/5 ML ONE (07:39)
[2025-01-14] MEDS ORDERED: PROPOFOL 10 MG/ML 20 ML VIAL IV ONE (07:39)
[2025-01-14] MEDS ORDERED: CALCIUM CHLORIDE 100 MG/ML 10 ML SYRINGE ONE (07:39)
[2025-01-14] MEDS ORDERED: TRANEXAMIC 1,000 MG/100ML-NACL PREMIX BAG ONE (07:39)
[2025-01-14] MEDS ORDERED: PHENYLEPHRINE-0.9% NACL SYG 1,000 MCG/10 ML SYRINGE ONE (07:39)
[2025-01-14] MEDS ORDERED: ePHEDrine 50 MG/ML 1 ML VIAL ONE (07:39)
[2025-01-14 08:34] LABS: ABG Base Excess 0.6 mmol/L; ABG Glucose Whole Blood 105 mg/dL (75-99); ABG HCO3 25 mmol/L (21-25); ABG Hematocrit 28 % (34.0-46.0); ABG Ionized Calcium 4.7 mg/dL (4.5-5.3); ABG Oxygen Saturation >99.4 % (94-97); ABG PCO2 40 mmHg (35-45); ABG PH 7.41 (7.35-7.45); ABG PO2 270 mmHg (83-108); ABG Potassium Whole Blood 3.9 mmol/L (3.4-4.5); ABG Sodium Whole Blood 140 mmol/L (135-146); Allen Test Performed? Yes
--- NOTE | 2025-01-14 09:12 | P.ANPRN ---
Procedure Note - Anesthesia - Invasive Line [place] Date of Procedure: 01/14/25 Time of Procedure: 07:00 Location of Patient: Phase I [place] Brady Line Location: Internal Jugular Ultrasound Used: Yes Purpose - Visualization and Identification of Vasculature: Yes Image Stored and Saved: Yes Narrative: Invasive line placement per sterile protocol utilized.
--- NOTE | 2025-01-14 09:13 | P.ANPRN ---
Procedure Note - Anesthesia - Invasive Line Right Central Line Date of Procedure: 01/14/25 Time of Procedure: 07:00 Location of Patient: Phase I Preparation: Sterile Prep, Sterile Dressing Central Line Location: Internal Jugular Ultrasound Used: Yes Purpose - Visualization and Identification of Vasculature: Yes Image Stored and Saved: Yes Narrative: Invasive line placement per sterile protocol utilized.
[2025-01-14 09:27] LABS: ABG Base Excess 0.2 mmol/L; ABG Glucose Whole Blood 102 mg/dL (75-99); ABG HCO3 25 mmol/L (21-25); ABG Hematocrit 29 % (34.0-46.0); ABG Ionized Calcium 4.6 mg/dL (4.5-5.3); ABG Lactic Acid Whole Blood 0.9 mmol/L (0.5-1.6); ABG Oxygen Saturation >99.4 % (94-97); ABG PCO2 41 mmHg (35-45); ABG PH 7.39 (7.35-7.45); ABG PO2 256 mmHg (83-108); ABG Sodium Whole Blood 139 mmol/L (135-146); Allen Test Performed? Yes
[2025-01-14] MEDS: SODIUM CHLORIDE 0.9% 500 ML 500 ML with HEPARIN SODIUM,PORCINE (1 ML) 5,000 UNIT IV ONE (09:43)
[2025-01-14] MEDS: ceFAZolin 1,000 MG in SODIUM CHLORIDE 0.9% 1,000 ML IRRIGATION ONE (09:44)
[2025-01-14] MEDS: SODIUM CHLORIDE 0.9% 100 ML with ceFAZolin 2,000 MG IV ONE (09:45)
[2025-01-14 09:57] LABS: ABG Base Excess 2.9 mmol/L; ABG Glucose Whole Blood 109 mg/dL (75-99); ABG HCO3 26 mmol/L (21-25); ABG Lactic Acid Whole Blood 0.9 mmol/L (0.5-1.6); ABG Oxygen Saturation >99.4 % (94-97); ABG PCO2 33 mmHg (35-45); ABG PH 7.51 (7.35-7.45); ABG Sodium Whole Blood 141 mmol/L (135-146); Allen Test Performed? Yes
[2025-01-14 10:22] LABS: ABG Base Excess 1.1 mmol/L; ABG Glucose Whole Blood 118 mg/dL (75-99); ABG HCO3 27 mmol/L (21-25); ABG Hematocrit 25 % (34.0-46.0); ABG Ionized Calcium 4.1 mg/dL (4.5-5.3); ABG Lactic Acid Whole Blood 1.2 mmol/L (0.5-1.6); ABG Oxygen Saturation >99.4 % (94-97); ABG PCO2 47 mmHg (35-45); ABG PH 7.36 (7.35-7.45); ABG Potassium Whole Blood 4.6 mmol/L (3.4-4.5); ABG Sodium Whole Blood 141 mmol/L (135-146); Allen Test Performed? Yes
[2025-01-14 10:57] LABS: ABG Glucose Whole Blood 113 mg/dL (75-99); ABG HCO3 26 mmol/L (21-25); ABG Hematocrit 26 % (34.0-46.0); ABG Ionized Calcium 4.1 mg/dL (4.5-5.3); ABG Lactic Acid Whole Blood 1.2 mmol/L (0.5-1.6); ABG Oxygen Saturation >99.4 % (94-97); ABG PCO2 44 mmHg (35-45); ABG PH 7.38 (7.35-7.45); ABG PO2 387 mmHg (83-108); ABG Potassium Whole Blood 5.4 mmol/L (3.4-4.5); ABG Sodium Whole Blood 139 mmol/L (135-146); Allen Test Performed? Yes
[2025-01-14 11:32] LABS: ABG Base Excess 0.8 mmol/L; ABG Glucose Whole Blood 116 mg/dL (75-99); ABG HCO3 26 mmol/L (21-25); ABG Hematocrit 25 % (34.0-46.0); ABG Lactic Acid Whole Blood 1.4 mmol/L (0.5-1.6); ABG Oxygen Saturation >99.4 % (94-97); ABG PCO2 40 mmHg (35-45); ABG PH 7.41 (7.35-7.45); ABG Potassium Whole Blood 5.6 mmol/L (3.4-4.5); ABG Sodium Whole Blood 139 mmol/L (135-146); Allen Test Performed? Yes
[2025-01-14 11:45] LABS: Basophils # (A) 0.02 10*3/uL (0.00-0.10); Basophils % (A) 0.2 %; Eosinophils # (A) 0.05 10*3/uL (0.04-0.35); Eosinophils % (A) 0.5 %; HCT 23.2 % (39.6-50.0); HGB 7.7 g/dL (13.0-17.0); Lymphocytes # (A) 1.37 10*3/uL (0.90-5.00); Lymphocytes % (A) 14.4 %; MCH 26.5 pg (27.0-32.0); MCHC 33.2 g/dL (32.0-37.0); MCV 79.7 fL (80.0-97.0); Mean Platelet Volume 10.6 fL (9.5-12.2); Monocytes # (A) 0.46 10*3/uL (0.20-1.00); Monocytes % (A) 4.8 %; Neutrophils # (A) 7.43 10*3/uL (1.80-7.70); Neutrophils % (A) 78.2 %; Platelet Count 178 10*3/uL (140-440); RBC 2.91 10*6/uL (4.40-5.60); RDW 14.2 % (11.5-14.5); WBC 9.51 10*3/uL (4.50-10.00)
[2025-01-14 12:11] LABS: ABG Base Excess 0.8 mmol/L; ABG Glucose Whole Blood 133 mg/dL (75-99); ABG HCO3 25 mmol/L (21-25); ABG Oxygen Saturation >99.4 % (94-97); ABG PCO2 40 mmHg (35-45); ABG PH 7.41 (7.35-7.45); ABG Potassium Whole Blood 5.5 mmol/L (3.4-4.5); ABG Sodium Whole Blood 140 mmol/L (135-146); Allen Test Performed? Yes
[2025-01-14 13:37] LABS: ABG TCO2 23 mmol/L (19-24)
[2025-01-14 13:41] LABS: ABG PO2 >420 mmHg (83-108)
[2025-01-14 13:42] LABS: ABG PO2 >420 mmHg (83-108)
[2025-01-14 13:42] LABS: ABG Hematocrit 24 % (34.0-46.0)
[2025-01-14 13:44] LABS: ABG Hematocrit 24 % (34.0-46.0); ABG Lactic Acid Whole Blood 2.1 mmol/L (0.5-1.6); ABG PO2 >420 mmHg (83-108)
[2025-01-14 13:44] LABS: ABG PO2 >420 mmHg (83-108)
[2025-01-14] MEDS ORDERED: BENZOCAINE/MENTHOL LOZENG 1 EACH LOZENGE MUCOUS MEM PRN (13:57)
[2025-01-14] MEDS ORDERED: Potassium Replacement Protocol 1 EACH MISC MISCELLANE PRN (13:57)
[2025-01-14] MEDS ORDERED: IPRATROPIUM-ALBUTEROL 3 ML NEB INHALATION PRN (13:57)
[2025-01-14] MEDS ORDERED: hydrALAZINE HCL 20 MG/ML 1 ML VIAL IVP PRN (13:57)
[2025-01-14] MEDS ORDERED: DEXTROSE 50% SYRINGE 50 ML IVP PRN ×2 (13:57)
[2025-01-14] MEDS ORDERED: CLEVIDIPINE BUTYRATE 25 MG in EMPTY BAG 1 BAG IV PRN (13:57)
[2025-01-14] MEDS ORDERED: Magnesium Replacement Protocol 1 EACH MISC MISCELLANE PRN (13:57)
[2025-01-14] MEDS ORDERED: CALCIUM GLUCONATE IN NACL 2 GM in SALINE 1 100ML.BAG IVPB PRN (13:57)
--- NOTE | 2025-01-14 14:13 | P.OP ---
Date of Procedure: 01/14/25 Preoperative Diagnosis: Bicuspid aortic valve with severe regurgitation and moderate stenosis, ascending aortic aneurysm at 4.5 cm stable over 5 years, preserved left ventricular function, hyperlipidemia, factor V Leiden deficiency on Eliquis Postoperative Diagnosis: Same with fusion of the right and left cusp with calcified raphae Procedure(s) Performed: 1aortic valve replacement using a 27 mm Inspiris pericardial bioprosthesis 2supra coronary ascending aortic replacement using a 32 mm Gelweave graft 3exclusion of the left atrial appendage using a 40 mm AtriClip 4intraoperative transesophageal echocardiogram and epiaortic scanning Implants: 27 mm Inspiris pericardial bioprosthesis 32 mm Gelweave straight graft 40 mm AtriClip Anesthesia: JERRYA Surgeon: Gisell Corona Associate Biological Sales #1: Shane Milan Associate Biological Sales #2: Maria Guadalupe Kidd Pathology: other (Aortic valve and ascending aortic aneurysm wall) Condition: stable Disposition: ICU Indications for Procedure: Patient is a 59 years old gentleman known to have an ascending aortic aneurysm and a bicuspid valve. The aneurysm has been at 4.5 cm stable for 5 years. His aortic valve at this point shows severe aortic valve regurgitation and moderate stenosis. Plan is to replace aortic valve as the calcification preclude repair and I will probably be replacing his ascending aorta. He has a factor V Leiden deficiency. The STS risk score was discussed with him he understood it and agreed to proceed. Operative Findings: Bicuspid aortic valve with fusion of the left and right cusp with calcified raphae Ascending aortic aneurysm with mildly thin wall Description of Procedure: Patient in supine position right internal jugular [place]-Brady catheter and the right brachial arterial line were placed. Subsequently was brought to the operating room where general endotracheal anesthesia was induced uneventfully. PA pressure was normal cardiac index of 2.7. Delgado catheter was inserted. Subsequently the chest abdomen and both lower extremities were prepped and draped using ChloraPrep. Ioban was used to cover the skin. Patient received 2 g of cefazolin intravenously. Transesophageal echocardiogram confirmed the preoperative finding of severe eccentric aortic valve regurgitation and moderate stenosis and preserved left ventricular function with trace mitral valve regurgitation. Midline sternotomy was performed and no bone wax was used. Right pleura had a breach and it was drained with a 19 [place] Josue drain. Deep sternal retractor was used. Thymic fat was transected between 2 ties and epiaortic scanning revealed no protruding atheroma in the ascending aorta. Pericardium was opened in an inverted T fashion and pericardial cradle was created. Find included a known ascending aortic aneurysm and a boggy heart. After systemic heparinization after placement of respective pledgeted pursestring aortic cannulation the proximal arch with a 21 [place] slow flow cannula and venous cannulation via the right atrial appendage with a 3 stage 29 [place] cannula was performed. Antegrade as well as retrograde cardioplegia catheter were placed. After clamping I placed also a left atrial vent via the right superior pulmonary vein. Cardioquin bypass was initiated and patient temperature was allowed to drift down to 34 C. Subsequently the aorta was clamped just be low with the innominate and we were able to achieve arrest with antegrade cardioplegia despite AI with around 800 cc and gave around 500 cc of retrograde cold blood cardioplegia. All subsequent doses were given retrograde at 15 minutes int erval. We started by excluding the left atrial appendage by deploying a 40 mm AtriClip at its base. The aorta was transected in its mid part and expiration revealed evidence of a bicuspid aortic valve with fusion of the right and left cusps with very calcified raphae certainly precluding any attempt to repair. The aorta was transected transversely 1 cm above the sinotubular junction. The aortic valve was excised and the annulus debrided to pliable annulus. The irrigation with 500 cc of cold saline followed. Subsequently a total of 19 sutures of Tycron 2 oh most of them nonpledgeted were placed all around the annulus. The annulus was measured to a 27 mm Inspiris pericardial bioprosthesis which was brought into the field and all the suture passed in it and it seated nicely clearing pilar th coronary ostia. All the needles cut and the sutures tied using the core knot device. Thorough irrigation performed 1 more time. The aortic aneurysm was excised up to 1 cm from the clamp. I selected a 32 mm Gelweave graft and performed the proximal anastomosis using 4-0 Prolene in a running fashion reinforced by a strip of autologous pericardium that I harvested from the patient. I placed 240 BB pledgeted on the inside on the posterior wall for added security . This anastomosis was tested by pressurizing the graft with antegrade cardioplegia and the anastomosis appeared to be hemostatic. Subsequently the graft was beveled to size and the distal anastomosis was performed in the same fashion using 4-0 Prolene reinforced by separate strip of autologous pericardium. Rewarming had been started. Patient was placed in Trendelenburg position and de-airing maneuvers performed. I put in an 18-gauge in the mid aspect of the ascending graft for the airing. CO2 was flowing over the field as long as the aorta was open. Subsequently we unclamped the aorta. Hemostasis appeared from to be satisfactory. It took a while to the air guided by SONY. I poked the apex with a 19-gauge needle but did not need to close that as the ventricle was hypertrophied. After around 20 minutes of reperfusion we were able to wean off cardiac bypass without the need of any inotropic or vasopressor support. The valve appeared to be functioning well and competent with low gradient. Patient required AV pacing for junctional rhythm as we gave him 300 g of amiodarone for atrial fibrillation. 2 monopolar atrial pacing wires have been affixed to the respective pressing on the right atrium and 1 ventricular pacing wire was driven via the inferior aspect of the right ventricle. 2x19 [place] Josue drain were left substernally. At this point this was in full dose protamine was given. Decannulation followed. The venous cannulation site required reinforcement with 4-0 Prolene. The de-airing site was closed with a pledgeted 5-0 Prolene. Mediastinal fat were estimated over the graft. After excising the piece of pericardium I could not approximate and there was paucity of fat to cover the right ventricle. After ensuring adequate hemostasis hemodynamic and after correct sponge instrument and needle count the sternum was closed using 5 [id number] [place] cable after interposing fibrillar between the sternal edges. Irrigation with cefazolin followed. Rest of closure proceeded in layers. Skin glue was applied. Patient had regained sinus rhythm with first-degree AV block. His hemodynamics were excellent and the cardiac index was 2.4 with normal PA pressure. He received 675 cc of Cell Saver blood and no blood bank product. He was transferred to the ICU in stable condition.
[2025-01-14 14:24] LABS: Glucose,Whole Blood 127 mg/dL (70-110)
[2025-01-14 14:32] LABS: Basophils # (A) 0.02 10*3/uL (0.00-0.10); Basophils % (A) 0.2 %; Eosinophils # (A) 0.02 10*3/uL (0.04-0.35); Eosinophils % (A) 0.2 %; HCT 29.4 % (39.6-50.0); Immature Platelet Fraction 3.1 % (1.1-6.1); Lymphocytes # (A) 0.77 10*3/uL (0.90-5.00); MCH 26.8 pg (27.0-32.0); MCV 81.2 fL (80.0-97.0); Monocytes # (A) 0.45 10*3/uL (0.20-1.00); Monocytes % (A) 5.2 %; Neutrophils # (A) 7.26 10*3/uL (1.80-7.70); Neutrophils % (A) 84.6 %; Platelet Count 122 10*3/uL (140-440); RBC 3.62 10*6/uL (4.40-5.60); RDW 14.2 % (11.5-14.5); WBC 8.59 10*3/uL (4.50-10.00)
[2025-01-14 14:38] LABS: HGB 9.7 g/dL (13.0-17.0)
--- NOTE | 2025-01-14 14:38 | XR ---
EXAMINATION TYPE: XR chest 1V portable DATE OF EXAM: 01/14/2025 2:32 PM COMPARISON: Chest radiographs from 12/07/2024, CT chest 12/09/2024 TECHNIQUE: XR chest 1V portable Portable AP radiograph of the chest. CLINICAL INDICATION:Male, 59 years old with history of Post Operative Cardiac Surgery; FINDINGS: Lungs/Pleura: There is no evidence of pleural effusion, focal consolidation, or pneumothorax. Pulmonary vascularity: Unremarkable. Heart/mediastinum: Cardiomediastinal silhouette is enlarged. Left atrial appendage occlusion devices present. Musculoskeletal: No acute osseous pathology. Midline sternotomy wires are noted. Other findings: None Lines/Tubes: Endotracheal tube with distal tip 1.8 cm above the fernie There are 2 mediastinal drainage catheters identified. Right IJ approach central venous catheter distal tip in the region of the main to left pulmonary chika ry. Right thoracotomy tube. IMPRESSION: Post operative cardiac surgery changes with support lines and tubes as described above. [facility], , 01/14/2025 2:36 PM
[2025-01-14] MEDS: SODIUM CHLORIDE 0.9% 1,000 ML IV SCH (14:39)
[2025-01-14 14:43] LABS: Ionized Calcium 4.7 mg/dL (4.5-5.3)
[2025-01-14 14:51] LABS: ALT 14 U/L (4-49); AST 48 U/L (17-59); African American GFR (CKD) >90 (>60 ml/min/1.73 sqM); Albumin 2.8 g/dL (3.5-5.0); Alkaline Phosphatase 52 U/L (38-126); Anion Gap 5 mmol/L; Blood Urea Nitrogen 11 mg/dL (9-20); Calcium 8.7 mg/dL (8.4-10.2); Carbon Dioxide 25 mmol/L (22-30); Chloride 107 mmol/L (98-107); Glucose 116 mg/dL (74-99); Magnesium 2.6 mg/dL (1.6-2.3); Non-African American GFR(CKD) >90 (>60 ml/min/1.73 sqM); Potassium 4.5 mmol/L (3.5-5.1); Sodium 137 mmol/L (137-145); Total Protein 4.6 g/dL (6.3-8.2)
[2025-01-14 14:51] LABS: ABG Base Excess 0.2 mmol/L; ABG HCO3 25 mmol/L (21-25); ABG Oxygen Saturation >100.0 % (94-97); ABG PCO2 40 mmHg (35-45); ABG PH 7.41 (7.35-7.45); ABG PO2 381 mmHg (83-108); ABG TCO2 26 mmol/L (19-24)
[2025-01-14 14:54] LABS: Allen Test Performed? no
--- NOTE | 2025-01-14 15:09 | P.CNPUL ---
History of Present Illness Consult date: 01/14/25 Requesting physician: Gisell Corona Reason for consult: other (Ventilator/critical care management) Chief complaint: Bicuspid aortic valve, ascending aortic dilatation History of present illness: This is a 59-year-old male patient with a known history of factor V Leyden deficiency with 2 previous DVTs to the right lower extremity maintained on Eliquis, hyperlipidemia. He also has a known history of ascending aortic aneurysm measuring 4.5 cm and a bicuspid aortic valve with severe regurgitation and mild stenosis. He was brought in today electively for surgery. He did undergo aortic valve replacement with a 27 mm Inspiris pericardial bio prostatic, ascending aortic replacement using a Gelweave graft, exclusion of left atrial appendage. Postoperative day #0. He is seen postoperatively in the intensive care unit. He remains intubated on the mechanical ventilator and assist-control mode at a rate of 16, tidal volume 500, FiO2 100% and a PEEP of 5. Arterial blood gases reveal a PaO2 of 381, PCO2 of 40 and a pH of 7.41. He is currently sedated on propofol at 50 mcg/kg/min. Normal saline at 50 mL/h. Cardiac output 5.4. Cardiac index 3.1. PA pressures 38/18, CVP 14. He is currently a paced V sensed with pacer wires in place. X-ray tracheal tube at 1.8 cm above the fernie. 2 mediastinal drainage catheters, 1 right thoracotomy tube. Right IJ Milton-Brady catheter in place. White count 8.5. Hemoglobin 9.7. Platelets 122. Sodium 137. Potassium 4.5. Bicarb 25. BUN 11. Creatinine 0.91. Glucose 127. He is initiated on DuoNeb inhalations. Heparin for DVT prophylaxis. Review of Systems ROS unobtainable: due to endotracheal tube Past Medical History Past Medical History: Asthma, Blood Disorder, Deep Vein Thrombosis (DVT), Hyperlipidemia, Osteoarthritis (OA) Additional Past Medical History / Comment(s): EXERCISE INDUCED ASTHMA, MIGRAINES, TORN LEFT MENISCUS, FACTOR 5 LEIDEN, VARICOSE VEIN RIGHT LEG, HX KIDNEY STONES. History of Any Multi-Drug Resistant Organisms: None Reported Past Surgical History: Heart Catheterization, Hernia Repair, Orthopedic Surgery Additional Past Surgical History / Comment(s): HERNIA REPAIR X2, RIGHT MENISCUS REPAIR, LEFT KNEE SURGERY, RIGHT ACL REPAIR, PROCEDURE FOR KIDNEY STONE, SONY. Past Anesthesia/Blood Transfusion Reactions: No Reported Reaction Additional Past Anesthesia/Blood Transfusion Reaction / Comment(s): DIFFICULTY WAKING UP - STATES GROGGY FOR HOURS. Smoking Status: Never smoker - Past Family History Mother Family Medical History: Cancer Additional Family Medical History / Comment(s): BREAST CANCER. Father Family Medical History: Blood Disorder, Myocardial Infarction (HI) Additional Family Medical History / Comment(s): FACTOR V LEIDEN. Daughter(s) Family Medical History: Blood Disorder Additional Family Medical History / Comment(s): FACTOR 5 LEIDEN. Brother(s) Family Medical History: Blood Disorder Additional Family Medical History / Comment(s): FACTOR 5 LEIDEN. Medications and Allergies Home Medications Medication Instructions Recorded Confirmed Type Simvastatin [Zocor] 40 mg PO HS 09/14/17 01/14/25 History Apixaban [Eliquis] 5 mg PO BID 04/28/22 01/14/25 History lisinopriL 2.5 mg PO HS 04/28/22 01/14/25 History Albuterol Sulfate/Budesonide 1 puff INHALATION RT-QID PRN 12/07/24 01/14/25 History [Airsupra 90-80 Mcg Inhaler] Ibuprofen [Motrin Ib] 200 mg PO Q6H PRN 12/07/24 01/14/25 History Aspirin 325 mg PO ONCE 12/19/24 01/14/25 History Allergies Allergy/AdvReac Type Severity Reaction Status Date / Time adhesive Allergy Rash/Hives Verified 01/14/25 06:41 Physical Exam Vitals: Vital Signs Temp Pulse Pulse Resp BP BP Pulse Ox 01/14/25 14:54 01/14/25 14:40 73 16 100 01/14/25 14:30 82 16 100 01/14/25 14:20 97.5 F L 74 16 100 01/14/25 14:19 01/14/25 06:44 97.6 F 53 L 16 138/69 140/64 98 FiO2 01/14/25 14:54 50 01/14/25 14:40 100 01/14/25 14:30 100 01/14/25 14:20 100 01/14/25 14:19 100 01/14/25 06:44 Intake and Output 01/13/25 01/14/25 01/14/25 22:59 06:59 14:59 Intake Total 102 Output Total 850 Balance -748 Intake: IV 102 Output: Urine 500 Estimated Blood Loss 350 Other: Weight 80.7 kg ABP, PAP, CO, CI - Last 8 Hours Arterial Blood Pressure 122/78 Arterial Blood Pressure 120/84 Arterial Blood Pressure 106/72 Pulmonary Artery Pressure 29/16 Pulmonary Artery Pressure 31/17 Pulmonary Artery Pressure 28/16 Cardiac Output 5.4 Cardiac Output 5.4 Cardiac Output 5.4 Cardiac Index 3.1 Cardiac Index 3.1 Cardiac Index 3.1 GENERAL EXAM: Intubated, sedated 59-year-old male patient on the mechanical ventilator, in no apparent distress. HEAD: Normocephalic. EYES: Sluggish reaction of pupils, equal size. NOSE: Clear with pink turbinates. THROAT: Oral endotracheal and gastric tube secured in place. No erythema or exudates. NECK: No masses, no JVD. Right IJ Milton-Brady catheter in place. CHEST: Sternal dressing dry and intact. Mediastinal and right pleural chest tubes in place to Pleur-evac and wall suction. Pacer wires in place. LUNGS: Equal air entry with no crackles, wheeze, rhonchi or dullness. CVS: S1 and S2 normal with no audible murmur, regular rhythm. ABDOMEN: No hepatosplenomegaly, normal bowel sounds, no guarding or rigidity. SPINE: No scoliosis or deformity SKIN: No rashes CENTRAL NERVOUS SYSTEM: Sedated, tone is normal in all 4 extremities. EXTREMITIES: Right radial arterial line in place. There is no peripheral edema. No clubbing, no cyanosis. Peripheral pulses are intact. Results - Laboratory Findings CBC and BMP: 01/14/25 14:20 01/14/25 14:20 ABG ABG pH 7.41 (7.35-7.45) 01/14/25 14:48 ABG pCO2 40 mmHg (35-45) 01/14/25 14:48 ABG pO2 381 mmHg (83-108) H 01/14/25 14:48 ABG O2 Saturation >100.0 % (94-97) H 01/14/25 14:48 Abnormal lab findings: Abnormal Labs 01/07/25 01/14/25 01/14/25 09:22 08:39 09:27 RBC Hgb Hct MCV MCH Plt Count Immature Gran # Lymphocytes # Eosinophils # ABG pH ABG pCO2 ABG pO2 270 H 256 H ABG HCO3 ABG Total CO2 ABG O2 Saturation >99.4 H >99.4 H ABG Hematocrit 28 L 29 L ABG Potassium ABG Ionized Calcium ABG Glucose 105 H 102 H ABG Lactic Acid Hemoglobin 9.2 L 9.4 L Glucose POC Glucose (mg/dL) Magnesium Total Protein Albumin Arterial Blood Potassium Arterial Blood Glucose 105 H 102 H Crossmatch See Detail 01/14/25 01/14/25 01/14/25 09:57 10:22 10:57 RBC Hgb Hct MCV MCH Plt Count Immature Gran # Lymphocytes # Eosinophils # ABG pH 7.51 H ABG pCO2 33 L 47 H ABG pO2 >420 H >420 H 387 H ABG HCO3 26 H 27 H 26 H ABG Total CO2 ABG O2 Saturation >99.4 H >99.4 H >99.4 H ABG Hematocrit 24 L 25 L 26 L ABG Potassium 4.6 H 5.4 H ABG Ionized Calcium 4.0 L 4.1 L 4.1 L ABG Glucose 109 H 118 H 113 H ABG Lactic Acid Hemoglobin 7.9 L 8.3 L 8.4 L Glucose POC Glucose (mg/dL) Magnesium Total Protein Albumin Arterial Blood Potassium 4.6 H 5.4 H Arterial Blood Glucose 109 H 118 H 113 H Crossmatch 01/14/25 01/14/25 01/14/25 11:32 11:35 12:11 RBC 2.91 L Hgb 7.7 L Hct 23.2 L MCV 79.7 L MCH 26.5 L Plt Count Immature Gran # 0.18 H Lymphocytes # Eosinophils # ABG pH ABG pCO2 ABG pO2 >420 H >420 H ABG HCO3 26 H ABG Total CO2 ABG O2 Saturation >99.4 H >99.4 H ABG Hematocrit 25 L 24 L ABG Potassium 5.6 H 5.5 H ABG Ionized Calcium 4.0 L ABG Glucose 116 H 133 H ABG Lactic Acid 2.1 H Hemoglobin 8.2 L 7.9 L Glucose POC Glucose (mg/dL) Magnesium Total Protein Albumin Arterial Blood Potassium 5.6 H 5.5 H Arterial Blood Glucose 116 H 133 H Crossmatch 01/14/25 01/14/25 01/14/25 14:20 14:20 14:22 RBC 3.62 L Hgb 9.7 L D Hct 29.4 L MCV MCH 26.8 L Plt Count 122 L Immature Gran # 0.07 H Lymphocytes # 0.77 L Eosinophils # 0.02 L ABG pH ABG pCO2 ABG pO2 ABG HCO3 ABG Total CO2 ABG O2 Saturation ABG Hematocrit ABG Potassium ABG Ionized Calcium ABG Glucose ABG Lactic Acid Hemoglobin Glucose 116 H POC Glucose (mg/dL) 127 H Magnesium 2.6 H Total Protein 4.6 L Albumin 2.8 L Arterial Blood Potassium Arterial Blood Glucose Crossmatch 01/14/25 14:48 RBC Hgb Hct MCV MCH Plt Count Immature Gran # Lymphocytes # Eosinophils # ABG pH ABG pCO2 ABG pO2 381 H ABG HCO3 ABG Total CO2 26 H ABG O2 Saturation >100.0 H ABG Hematocrit ABG Potassium ABG Ionized Calcium ABG Glucose ABG Lactic Acid Hemoglobin 10.3 L Glucose POC Glucose (mg/dL) Magnesium Total Protein Albumin Arterial Blood Potassium Arterial Blood Glucose Crossmatch - Diagnostic Findings Chest x-ray: image reviewed Assessment and Plan Assessment: Bicuspid aortic valve with severe regurgitation and moderate stenosis, ascending aortic aneurysm at 4.5 cm. Status post aortic valve replacement utilizing a 27 mm Inspiris pericardial bioprosthetic. Ascending aortic replacement utilizing a 32 mm Gelweave graft. Exclusion of left atrial appendage. Postoperative day #0 Mechanical ventilator management, expected outcome of surgery History of factor V Leiden deficiency Hyperlipidemia Plan: The patient was seen and evaluated Chest x-ray, ABGs, labs and medications reviewed Decreased the FiO2 to 50% Plan for early extubation protocol as tolerated Continue bronchodilators Heparin for DVT prophylaxis We will continue to follow make further recommendations based on his clinical status I have personally seen and examined the patient, performed the documentation and the assessment and plan as written. Number of minutes spent on the visit: 20 Dictation was produced using W[employer] dictation software. Please excuse any grammatical, word or spelling errors. Time with Patient: Greater than 30
[2025-01-14 15:13] LABS: Glucose,Whole Blood 133 mg/dL (70-110)
[2025-01-14] MEDS: INSULIN REGULAR 100 UNIT in SODIUM CHLORIDE 0.9% 100 ML IV SCH (15:13)
[2025-01-14 15:32] LABS: INR 1.1 (<1.2); Partial Thromboplastin Time 23.2 sec (22.0-30.0); Prothrombin Time 12.4 sec (10.0-12.5)
[2025-01-14] MEDS: DEXMEDETOMIDINE/0.9% NACL(PMX) 400 MCG in EMPTY BAG 1 BAG IV SCH (15:52)
[2025-01-14 16:12] LABS: Glucose,Whole Blood 139 mg/dL (70-110)
[2025-01-14] MEDS: ceFAZolin 2 GM in DEXTROSE 5% IN WATER 50 ML IVPB ONE (16:14)
[2025-01-14] MEDS: ceFAZolin 1,000 MG in SODIUM CHLORIDE 0.9% IRRIGATIO 1,000 ML IRRIGATION ONE (16:14)
[2025-01-14] MEDS: ceFAZolin 2 GM in DEXTROSE 5% IN WATER 50 ML IVPB SCH (16:17)
[2025-01-14] MEDS: HEPARIN SODIUM,PORCINE 5,000 UNIT/ML 1 ML VIAL SQ SCH (16:26)
[2025-01-14] MEDS: IPRATROPIUM-ALBUTEROL 3 ML NEB INHALATION SCH ×2 (16:44→20:50)
[2025-01-14 17:01] LABS: Glucose,Whole Blood 154 mg/dL (70-110)
--- NOTE | 2025-01-14 17:29 | P.CONS ---
History of Present Illness - Reason for Consult Consult date: 01/14/25 Medical management Requesting physician: Gisell Corona - Chief Complaint Arctic valve replacement - History of Present Illness 59-year-old patient follows with Dr. Ozzy Carbone. Chronic medical conditions include asthma, factor V Leiden mutation, prior hi story of DVT, hyperlipidemia osteoarthritis, exercise-induced asthma, migraines, history of kidney stones. Patient in today has undergone aortic valve replacement., With a bioprosthesis. Ascending aorta replacement with a graft. Postprocedure in the ICU. Intubated. Currently weaning on CPAP. Current drips include Precedex and insulin. Patient has 2 mediastinal and 1 right pleural chest tube. Currently lethargic not able to give a history. Review of systems: Unable to get because patient lethargic Social history: Non-smoker. Alcohol rarely. Physical examination: VITAL SIGNS: 98.8, 74, 18, 116 x 68, 100% on ventilator 50% GENERAL: BMI 26.3, laying in bed, intubated. Chest tubes x 3 EYES: Pupils equal. Conjunctiva wicho l. HEENT: [External appearance of nose and ears normal, endotracheal tube NECK: JVD unable to assess; masses not palpable. HEART: First and second heart sounds are normal; no edema. LUNGS: Respiratory rate normal; decreased breath sound. ABDOMEN: Soft, nontender, liver spleen not palpable, no masses palpable. Delgado catheter PSYCH: Patient lethargic l. MUSCULOSKELETAL:No Clubbing/cyanosis;muscles-grossly intact NEUROLOGICAL: Cranial nerves grossly intact; no facial asymmetry,. LYMPHATICS: No lymph nodes palpable in the axilla and neck INVESTIGATIONS, reviewed in the clinical context: January 14, 2025: White count 8.5 hemoglobin 9.7 platelets 122 sodium 137 potassium 4.5 BUN 11 creatinine 0.91 albumin 2.8 Previous labs: January 07, 2025: White count 4.2 hemoglobin 11.5 platelets 242 December 09, 2024 LDL 132 Assessment plan: - Bicuspid aortic valve with severe regurgitation and moderate stenosis ascending aortic aneurysm at 4.5 cm. Stable over 5 years.: Followed by aortic valve replacement with pericardial bioprosthesis and ascending aorta replacement with a graft by Dr. Corona - Patient has 2 mediastinal chest tubes and 1 right pleural chest tube. - Patient is on IV Precedex and IV insulin - Postop ventilator assist, patient currently weaning on CPAP - Hyperlipidemia Statins - Essential hypertension Previously on lisinopril - Chronic DVT On Eliquis - Primary osteoarthritis Pain medication as needed - Factor V Leiden mutation On Eliquis Labs will be followed no family at the bedside. Thank you Dr. Corona Past Medical History Past Medical History: Asthma, Blood Disorder, Deep Vein Thrombosis (DVT), Hyperlipidemia, Osteoarthritis (OA) Additional Past Medical History / Comment(s): EXERCISE INDUCED ASTHMA, MIGRAINES, TORN LEFT MENISCUS, FACTOR 5 LEIDEN, VARICOSE VEIN RIGHT LEG, HX KIDNEY STONES. History of Any Multi-Drug Resistant Organisms: None Reported Past Surgical History: Heart Catheterization, Hernia Repair, Orthopedic Surgery Additional Past Surgical History / Comment(s): HERNIA REPAIR X2, RIGHT MENISCUS REPAIR, LEFT KNEE SURGERY, RIGHT ACL REPAIR, PROCEDURE FOR KIDNEY STONE, SONY. Past Anesthesia/Blood Transfusion Reactions: No Reported Reaction Additional Past Anesthesia/Blood Transfusion Reaction / Comm: DIFFICULTY WAKING UP - STATES GROGGY FOR HOURS. Smoking Status: Never smoker - Past Family History Mother Family Medical History: Cancer Additional Family Medical History / Comment(s): BREAST CANCER. Father Family Medical History: Blood Disorder, Myocardial Infarction ([place]) Additional Family Medical History / Comment(s): FACTOR V LEIDEN. Daughter(s) Family Medical History: Blood Disorder Additional Family Medical History / Comment(s): FACTOR 5 LEIDEN. Brother(s) Family Medical History: Blood Disorder Additional Family Medical History / Comment(s): FACTOR 5 LEIDEN. Medications and Allergies Home Medications Medication Instructions Recorded Confirmed Type Simvastatin [Zocor] 40 mg PO HS 09/14/17 01/14/25 History Apixaban [Eliquis] 5 mg PO BID 04/28/22 01/14/25 History lisinopriL 2.5 mg PO HS 04/28/22 01/14/25 History Albuterol Sulfate/Budesonide 1 puff INHALATION RT-QID PRN 12/07/24 01/14/25 History [Airsupra 90-80 Mcg Inhaler] Ibuprofen [Motrin Ib] 200 mg PO Q6H PRN 12/07/24 01/14/25 History Aspirin 325 mg PO ONCE 12/19/24 01/14/25 History Allergies Allergy/AdvReac Type Severity Reaction Status Date / Time adhesive Allergy Rash/Hives Verified 01/14/25 06:41 Physical Exam Vitals: Vital Signs Temp Pulse Pulse Resp BP BP Pulse Ox 01/14/25 17:10 74 18 100 01/14/25 17:00 98.8 F 74 17 99 01/14/25 16:57 74 01/14/25 16:50 74 14 100 01/14/25 16:45 74 01/14/25 16:40 74 16 99 01/14/25 16:30 74 18 100 01/14/25 16:20 73 16 100 01/14/25 16:10 74 16 100 01/14/25 16:00 98.2 F 74 16 100 01/14/25 15:50 74 16 100 01/14/25 15:40 73 16 98 01/14/25 15:30 73 16 100 01/14/25 15:20 73 16 99 01/14/25 15:10 74 16 100 01/14/25 15:00 97.9 F 73 16 99 01/14/25 14:54 01/14/25 14:50 74 16 100 01/14/25 14:40 73 16 100 01/14/25 14:30 82 16 100 01/14/25 14:20 97.5 F L 74 16 100 01/14/25 14:19 01/14/25 06:44 97.6 F 53 L 16 138/69 140/64 98 FiO2 01/14/25 17:10 50 01/14/25 17:00 50 01/14/25 16:57 01/14/25 16:50 50 01/14/25 16:45 01/14/25 16:40 50 01/14/25 16:30 50 01/14/25 16:20 50 01/14/25 16:10 50 01/14/25 16:00 50 01/14/25 15:50 50 01/14/25 15:40 50 01/14/25 15:30 50 01/14/25 15:20 50 01/14/25 15:10 50 01/14/25 15:00 50 01/14/25 14:54 50 01/14/25 14:50 100 01/14/25 14:40 100 01/14/25 14:30 100 01/14/25 14:20 100 01/14/25 14:19 100 01/14/25 06:44 Intake and Output 01/14/25 01/14/25 01/14/25 06:59 14:59 22:59 Intake Total 181 282.677 Output Total 975 415 Balance -794 -132.323 Intake: IV 131 87 0.9ns for pressure bag 9 27 co/ci 20 60 Intake, IV Titration 50 195.677 Amount Insulin Regular 100 unit 2.180 In Sodium Chloride 0.9% 100 ml @ Per Protocol IV .Q0M [facility] Rx#:[id number] Sodium Chloride 0.9% 1, 50 150 000 ml @ 50 mls/hr IV . Q20H [facility] Rx#:[id number] propofoL 1,000 mg In 43.497 Empty Bag 1 bag @ Titrate IV .Q0M [facility] Rx#: [id number] Output: Chest Tube Drainage 90 145 Chest Tube Mediastinal 85 105 Right 5 40 Urine 535 270 Estimated Blood Loss 350 Other: Voiding Method Indwelling Catheter Weight 80.7 kg ABP, PAP, CO, CI - Last 8 Hours Arterial Blood Pressure 116/68 Arterial Blood Pressure 120/70 Arterial Blood Pressure 122/72 Arterial Blood Pressure 124/75 Arterial Blood Pressure 125/75 Arterial Blood Pressure 130/80 Arterial Blood Pressure 129/79 Arterial Blood Pressure 133/82 Arterial Blood Pressure 132/84 Arterial Blood Pressure 131/82 Arterial Blood Pressure 133/82 Arterial Blood Pressure 129/79 Arterial Blood Pressure 126/78 Arterial Blood Pressure 125/78 Arterial Blood Pressure 122/78 Arterial Blood Pressure 120/84 Arterial Blood Pressure 106/72 Pulmonary Artery Pressure 24/11 Pulmonary Artery Pressure 23/10 Pulmonary Artery Pressure 24/11 Pulmonary Artery Pressure 23/11 Pulmonary Artery Pressure 28/14 Pulmonary Artery Pressure 28/15 Pulmonary Artery Pressure 28/15 Pulmonary Artery Pressure 29/15 Pulmonary Artery Pressure 29/16 Pulmonary Artery Pressure 29/16 Pulmonary Artery Pressure 29/15 Pulmonary Artery Pressure 33/19 Pulmonary Artery Pressure 32/19 Pulmonary Artery Pressure 32/18 Pulmonary Artery Pressure 29/17 Pulmonary Artery Pressure 29/16 Pulmonary Artery Pressure 31/17 Pulmonary Artery Pressure 28/16 Cardiac Output 6.9 Cardiac Output 5 Cardiac Output 5 Cardiac Output 5 Cardiac Output 5 Cardiac Output 5 Cardiac Output 5 Cardiac Output 5 Cardiac Output 5.6 Cardiac Output 5.6 Cardiac Output 5.6 Cardiac Output 5.6 Cardiac Output 5.6 Cardiac Output 5.6 Cardiac Output 5.4 Cardiac Output 5.4 Cardiac Output 5.4 Cardiac Output 5.4 Cardiac Index 3.9 Cardiac Index 2.8 Cardiac Index 2.8 Cardiac Index 2.8 Cardiac Index 2.8 Cardiac Index 2.8 Cardiac Index 2.8 Cardiac Index 2.8 Cardiac Index 3.2 Cardiac Index 3.2 Cardiac Index 3.2 Cardiac Index 3.2 Cardiac Index 3.2 Cardiac Index 3.2 Cardiac Index 3.1 Cardiac Index 3.1 Cardiac Index 3.1 Cardiac Index 3.1 Results CBC & Chem 7: 01/14/25 14:20 01/14/25 14:20 Labs: Abnormal Lab Results - Last 24 Hours (Table) 01/07/25 01/14/25 01/14/25 Range/Units 09:22 08:39 09:27 RBC (4.40-5.60) 10*6/uL Hgb (13.0-17.0) g/dL Hct (39.6-50.0) % MCV (80.0-97.0) fL MCH (27.0-32.0) pg Plt Count (140-440) 10*3/uL Immature Gran # (0.00-0.04) 10*3/uL Lymphocytes # (0.90-5.00) 10*3/uL Eosinophils # (0.04-0.35) 10*3/uL ABG pH (7.35-7.45) ABG pCO2 (35-45) mmHg ABG pO2 270 H 256 H (83-108) mmHg ABG HCO3 (21-25) mmol/L ABG Total CO2 (19-24) mmol/L ABG O2 Saturation >99.4 H >99.4 H (94-97) % ABG Hematocrit 28 L 29 L (34.0-46.0) % ABG Potassium (3.4-4.5) mmol/L ABG Ionized Calcium (4.5-5.3) mg/dL ABG Glucose 105 H 102 H (75-99) mg/dL ABG Lactic Acid (0.5-1.6) mmol/L Hemoglobin 9.2 L 9.4 L (13.0-17.5) gm/dL Glucose (74-99) mg/dL POC Glucose (mg/dL) (70-110) mg/dL Magnesium (1.6-2.3) mg/dL Total Protein (6.3-8.2) g/dL Albumin (3.5-5.0) g/dL Arterial Blood Potassium (3.4-4.5) mmol/L Arterial Blood Glucose 105 H 102 H (75-99) mg/dL Crossmatch See Detail 01/14/25 01/14/25 01/14/25 Range/Units 09:57 10:22 10:57 RBC (4.40-5.60) 10*6/uL Hgb (13.0-17.0) g/dL Hct (39.6-50.0) % MCV (80.0-97.0) fL MCH (27.0-32.0) pg Plt Count (140-440) 10*3/uL Immature Gran # (0.00-0.04) 10*3/uL Lymphocytes # (0.90-5.00) 10*3/uL Eosinophils # (0.04-0.35) 10*3/uL ABG pH 7.51 H (7.35-7.45) ABG pCO2 33 L 47 H (35-45) mmHg ABG pO2 >420 H >420 H 387 H (83-108) mmHg ABG HCO3 26 H 27 H 26 H (21-25) mmol/L ABG Total CO2 (19-24) mmol/L ABG O2 Saturation >99.4 H >99.4 H >99.4 H (94-97) % ABG Hematocrit 24 L 25 L 26 L (34.0-46.0) % ABG Potassium 4.6 H 5.4 H (3.4-4.5) mmol/L ABG Ionized Calcium 4.0 L 4.1 L 4.1 L (4.5-5.3) mg/dL ABG Glucose 109 H 118 H 113 H (75-99) mg/dL ABG Lactic Acid (0.5-1.6) mmol/L Hemoglobin 7.9 L 8.3 L 8.4 L (13.0-17.5) gm/dL Glucose (74-99) mg/dL POC Glucose (mg/dL) (70-110) mg/dL Magnesium (1.6-2.3) mg/dL Total Protein (6.3-8.2) g/dL Albumin (3.5-5.0) g/dL Arterial Blood Potassium 4.6 H 5.4 H (3.4-4.5) mmol/L Arterial Blood Glucose 109 H 118 H 113 H (75-99) mg/dL Crossmatch 01/14/25 01/14/25 01/14/25 Range/Units 11:32 11:35 12:11 RBC 2.91 L (4.40-5.60) 10*6/uL Hgb 7.7 L (13.0-17.0) g/dL Hct 23.2 L (39.6-50.0) % MCV 79.7 L (80.0-97.0) fL MCH 26.5 L (27.0-32.0) pg Plt Count (140-440) 10*3/uL Immature Gran # 0.18 H (0.00-0.04) 10*3/uL Lymphocytes # (0.90-5.00) 10*3/uL Eosinophils # (0.04-0.35) 10*3/uL ABG pH (7.35-7.45) ABG pCO2 (35-45) mmHg ABG pO2 >420 H >420 H (83-108) mmHg ABG HCO3 26 H (21-25) mmol/L ABG Total CO2 (19-24) mmol/L ABG O2 Saturation >99.4 H >99.4 H (94-97) % ABG Hematocrit 25 L 24 L (34.0-46.0) % ABG Potassium 5.6 H 5.5 H (3.4-4.5) mmol/L ABG Ionized Calcium 4.0 L (4.5-5.3) mg/dL ABG Glucose 116 H 133 H (75-99) mg/dL ABG Lactic Acid 2.1 H (0.5-1.6) mmol/L Hemoglobin 8.2 L 7.9 L (13.0-17.5) gm/dL Glucose (74-99) mg/dL POC Glucose (mg/dL) (70-110) mg/dL Magnesium (1.6-2.3) mg/dL Total Protein (6.3-8.2) g/dL Albumin (3.5-5.0) g/dL Arterial Blood Potassium 5.6 H 5.5 H (3.4-4.5) mmol/L Arterial Blood Glucose 116 H 133 H (75-99) mg/dL Crossmatch 01/14/25 01/14/25 01/14/25 Range/Units 14:20 14:20 14:22 RBC 3.62 L (4.40-5.60) 10*6/uL Hgb 9.7 L D (13.0-17.0) g/dL Hct 29.4 L (39.6-50.0) % MCV (80.0-97.0) fL MCH 26.8 L (27.0-32.0) pg Plt Count 122 L (140-440) 10*3/uL Immature Gran # 0.07 H (0.00-0.04) 10*3/uL Lymphocytes # 0.77 L (0.90-5.00) 10*3/uL Eosinophils # 0.02 L (0.04-0.35) 10*3/uL ABG pH (7.35-7.45) ABG pCO2 (35-45) mmHg ABG pO2 (83-108) mmHg ABG HCO3 (21-25) mmol/L ABG Total CO2 (19-24) mmol/L ABG O2 Saturation (94-97) % ABG Hematocrit (34.0-46.0) % ABG Potassium (3.4-4.5) mmol/L ABG Ionized Calcium (4.5-5.3) mg/dL ABG Glucose (75-99) mg/dL ABG Lactic Acid (0.5-1.6) mmol/L Hemoglobin (13.0-17.5) gm/dL Glucose 116 H (74-99) mg/dL POC Glucose (mg/dL) 127 H (70-110) mg/dL Magnesium 2.6 H (1.6-2.3) mg/dL Total Protein 4.6 L (6.3-8.2) g/dL Albumin 2.8 L (3.5-5.0) g/dL Arterial Blood Potassium (3.4-4.5) mmol/L Arterial Blood Glucose (75-99) mg/dL Crossmatch 01/14/25 01/14/25 01/14/25 Range/Units 14:48 15:08 16:11 RBC (4.40-5.60) 10*6/uL Hgb (13.0-17.0) g/dL Hct (39.6-50.0) % MCV (80.0-97.0) fL MCH (27.0-32.0) pg Plt Count (140-440) 10*3/uL Immature Gran # (0.00-0.04) 10*3/uL Lymphocytes # (0.90-5.00) 10*3/uL Eosinophils # (0.04-0.35) 10*3/uL ABG pH (7.35-7.45) ABG pCO2 (35-45) mmHg ABG pO2 381 H (83-108) mmHg ABG HCO3 (21-25) mmol/L ABG Total CO2 26 H (19-24) mmol/L ABG O2 Saturation >100.0 H (94-97) % ABG Hematocrit (34.0-46.0) % ABG Potassium (3.4-4.5) mmol/L ABG Ionized Calcium (4.5-5.3) mg/dL ABG Glucose (75-99) mg/dL ABG Lactic Acid (0.5-1.6) mmol/L Hemoglobin 10.3 L (13.0-17.5) gm/dL Glucose (74-99) mg/dL POC Glucose (mg/dL) 133 H 139 H (70-110) mg/dL Magnesium (1.6-2.3) mg/dL Total Protein (6.3-8.2) g/dL Albumin (3.5-5.0) g/dL Arterial Blood Potassium (3.4-4.5) mmol/L Arterial Blood Glucose (75-99) mg/dL Crossmatch 01/14/25 Range/Units 16:59 RBC (4.40-5.60) 10*6/uL Hgb (13.0-17.0) g/dL Hct (39.6-50.0) % MCV (80.0-97.0) fL MCH (27.0-32.0) pg Plt Count (140-440) 10*3/uL Immature Gran # (0.00-0.04) 10*3/uL Lymphocytes # (0.90-5.00) 10*3/uL Eosinophils # (0.04-0.35) 10*3/uL ABG pH (7.35-7.45) ABG pCO2 (35-45) mmHg ABG pO2 (83-108) mmHg ABG HCO3 (21-25) mmol/L ABG Total CO2 (19-24) mmol/L ABG O2 Saturation (94-97) % ABG Hematocrit (34.0-46.0) % ABG Potassium (3.4-4.5) mmol/L ABG Ionized Calcium (4.5-5.3) mg/dL ABG Glucose (75-99) mg/dL ABG Lactic Acid (0.5-1.6) mmol/L Hemoglobin (13.0-17.5) gm/dL Glucose (74-99) mg/dL POC Glucose (mg/dL) 154 H (70-110) mg/dL Magnesium (1.6-2.3) mg/dL Total Protein (6.3-8.2) g/dL Albumin (3.5-5.0) g/dL Arterial Blood Potassium (3.4-4.5) mmol/L Arterial Blood Glucose (75-99) mg/dL Crossmatch
[2025-01-14 17:55] LABS: ABG Base Excess -0.8 mmol/L; ABG HCO3 25 mmol/L (21-25); ABG Oxygen Saturation 99.2 % (94-97); ABG PCO2 44 mmHg (35-45); ABG PH 7.36 (7.35-7.45); ABG PO2 132 mmHg (83-108); ABG TCO2 26 mmol/L (19-24)
[2025-01-14 17:58] LABS: Allen Test Performed? no
--- NOTE | 2025-01-14 18:00 | P.ANPRN ---
Procedure Note - Anesthesia - SONY Intraop Pre Bypass SONY Intraop - Anesthesia Date of Procedure: 01/14/25 Pre-operative Diagnosis: , AI Post-operative Diagnosis: , AI Surgeon: Gisell Corona Ejection Fraction: Normal Regional Wall Motion Abnormalities: None Left Ventricle Hypertrophy: Yes R. Ventricle Function: Normal Anatomy: Other (Bicuspid) Aortic Stenosis: Moderate (Max velocity 2.43 m/s, Max gradient 23.6 mmHg, mean 9.1 mmHg) Aortic Regurgitation: Severe Mitral Stenosis: None Mitral Regurgitation: None Tricuspid Stenosis: None Tricuspid Regurgitation: None Pulmonic Stenosis: None Pulmonic Regurgitation: None R. Atrial Dilation: No L. Atrial Dilation: Yes Aortic Dissection: No Aortic Calcification: Moderate
--- NOTE | 2025-01-14 18:02 | P.ANPRN ---
Procedure Note - Anesthesia - SONY Intraop Post Bypass SONY Intraop Post Bypass Ejection Fraction: Normal Regional Wall Motion Abnormalities: None R. Ventricle Function: Normal Aortic Valve: Max velocity is 1.62 m/s, Max gradient is 10 mmHg, mean is 3.7 mmHg, no paravalvular leak Mitral Valve: Unchanged Tricuspid: Unchanged Pulmonic: Unchanged Aortic Dissection: No
[2025-01-14 18:17] LABS: Glucose,Whole Blood 142 mg/dL (70-110)
[2025-01-14 18:26] LABS: Basophils # (A) 0.03 10*3/uL (0.00-0.10); Basophils % (A) 0.3 %; Eosinophils # (A) 0.01 10*3/uL (0.04-0.35); Eosinophils % (A) 0.1 %; HCT 31.4 % (39.6-50.0); HGB 10.2 g/dL (13.0-17.0); Lymphocytes # (A) 0.46 10*3/uL (0.90-5.00); Lymphocytes % (A) 4.6 %; MCH 26.6 pg (27.0-32.0); MCHC 32.5 g/dL (32.0-37.0); MCV 81.8 fL (80.0-97.0); Mean Platelet Volume 10.5 fL (9.5-12.2); Monocytes # (A) 0.58 10*3/uL (0.20-1.00); Monocytes % (A) 5.8 %; Neutrophils # (A) 8.81 10*3/uL (1.80-7.70); Neutrophils % (A) 88.7 %; Platelet Count 131 10*3/uL (140-440); RBC 3.84 10*6/uL (4.40-5.60); RDW 14.4 % (11.5-14.5); WBC 9.94 10*3/uL (4.50-10.00)
[2025-01-14] MEDS: ACETAMINOPHEN IV (For NPO) 1,000 MG in EMPTY BAG 1 BAG IVPB SCH (18:42)
[2025-01-14 19:03] LABS: Glucose,Whole Blood 132 mg/dL (70-110)
[2025-01-14 19:38] LABS: Basophils # (A) 0.02 10*3/uL (0.00-0.10); Basophils % (A) 0.2 %; Eosinophils # (A) 0.01 10*3/uL (0.04-0.35); Eosinophils % (A) 0.1 %; HCT 29.9 % (39.6-50.0); HGB 9.8 g/dL (13.0-17.0); Lymphocytes # (A) 0.39 10*3/uL (0.90-5.00); Lymphocytes % (A) 4.1 %; MCH 26.6 pg (27.0-32.0); MCHC 32.8 g/dL (32.0-37.0); MCV 81.3 fL (80.0-97.0); Mean Platelet Volume 10.8 fL (9.5-12.2); Monocytes # (A) 0.54 10*3/uL (0.20-1.00); Monocytes % (A) 5.7 %; Neutrophils % (A) 89.5 %; Platelet Count 139 10*3/uL (140-440); RBC 3.68 10*6/uL (4.40-5.60); RDW 14.3 % (11.5-14.5)
[2025-01-14 20:03] LABS: Glucose,Whole Blood 127 mg/dL (70-110)
[2025-01-14 21:05] LABS: Glucose,Whole Blood 136 mg/dL (70-110)
[2025-01-14] MEDS: SENNOSIDES-DOCUSATE SODIUM 1 EACH TAB PO SCH (21:23)
[2025-01-14] MEDS: ONDANSETRON 4 MG/2 ML VIAL IVP PRN (21:53)
[2025-01-14 22:08] LABS: Glucose,Whole Blood 141 mg/dL (70-110)
[2025-01-14] MEDS: MORPHINE SULFATE 2 MG/ML SYRINGE IVP PRN (22:32)
[2025-01-14 23:11] LABS: Glucose,Whole Blood 141 mg/dL (70-110)
[2025-01-15 00:05] LABS: Glucose,Whole Blood 150 mg/dL (70-110)
[2025-01-15 01:02] LABS: Glucose,Whole Blood 150 mg/dL (70-110)
[2025-01-15 01:56] LABS: Glucose,Whole Blood 127 mg/dL (70-110)
[2025-01-15 03:19] LABS: Glucose,Whole Blood 115 mg/dL (70-110)
[2025-01-15 04:12] LABS: Glucose,Whole Blood 126 mg/dL (70-110)
[2025-01-15 05:09] LABS: Glucose,Whole Blood 116 mg/dL (70-110)
[2025-01-15 05:40] LABS: Basophils # (A) 0.01 10*3/uL (0.00-0.10); Basophils % (A) 0.1 %; HCT 30.3 % (39.6-50.0); Lymphocytes # (A) 0.43 10*3/uL (0.90-5.00); Lymphocytes % (A) 3.8 %; MCV 81.7 fL (80.0-97.0); Monocytes % (A) 6.3 %; Neutrophils # (A) 10.01 10*3/uL (1.80-7.70); Neutrophils % (A) 89.4 %; Platelet Count 151 10*3/uL (140-440); RBC 3.71 10*6/uL (4.40-5.60); RDW 14.3 % (11.5-14.5); WBC 11.19 10*3/uL (4.50-10.00)
[2025-01-15 05:58] LABS: Ionized Calcium 4.6 mg/dL (4.5-5.3)
[2025-01-15 06:01] LABS: ALT 15 U/L (4-49); AST 68 U/L (17-59); African American GFR (CKD) >90 (>60 ml/min/1.73 sqM); Alkaline Phosphatase 55 U/L (38-126); Anion Gap 5 mmol/L; Blood Urea Nitrogen 12 mg/dL (9-20); Calcium 8.4 mg/dL (8.4-10.2); Carbon Dioxide 25 mmol/L (22-30); Chloride 105 mmol/L (98-107); Glucose 105 mg/dL (74-99); Magnesium 1.9 mg/dL (1.6-2.3); Non-African American GFR(CKD) >90 (>60 ml/min/1.73 sqM); Sodium 135 mmol/L (137-145); Total Protein 4.9 g/dL (6.3-8.2)
[2025-01-15] MEDS: ALBUMIN HUMAN 5% 250 ML in EMPTY BAG 1 BAG IVPB PRN (06:17)
[2025-01-15] MEDS: METOCLOPRAMIDE 5 MG/ML 2 ML VIAL IVP PRN (06:18)
[2025-01-15 06:22] LABS: Glucose,Whole Blood 111 mg/dL (70-110)
[2025-01-15 06:54] LABS: Glucose,Whole Blood 110 mg/dL (70-110)
[2025-01-15] MEDS: MAGNESIUM SULFATE-D5W PMX 1 GM in DEXTROSE/WATER 1 100ML.BAG IVPB ONE (06:56)
--- NOTE | 2025-01-15 08:08 | XR ---
EXAMINATION TYPE: XR chest 1V portable DATE OF EXAM: 01/15/2025 5:45 AM COMPARISON: Chest radiographs from 01/14/2025, CT chest 12/09/2024 TECHNIQUE: XR chest 1V portable Portable AP radiograph of the chest. CLINICAL INDICATION:Male, 59 years old with history of Post Operative Cardiac Surgery; FINDINGS: Lungs/Pleura: There is no evidence of pleural effusion, focal consolidation, or pneumothorax. Pulmonary vascularity: Unremarkable. Heart/mediastinum: Cardiomediastinal silhouette is enlarged. Left atrial appendage occlusion devices present. Musculoskeletal: No acute osseous pathology. Midline sternotomy wires are noted. Other findings: None Lines/Tubes: Interval removal of endotracheal tube. There are 2 mediastinal drainage catheters identified in stable position. Right IJ approach central venous catheter distal tip in the region of the main to left pulmonary chika ry. Stable position. Possible right thoracotomy tube in the lung base. IMPRESSION: Post operative cardiac surgery changes with support lines and tubes as described above. [facility], , 01/15/2025 8:05 AM
[2025-01-15 08:16] LABS: Glucose,Whole Blood 142 mg/dL (70-110)
[2025-01-15] MEDS: ASPIRIN 325 MG TAB PO SCH (08:26)
[2025-01-15] MEDS: CLOPIDOGREL 75 MG TAB PO SCH (08:27)
[2025-01-15] MEDS: PANTOPRAZOLE 40 MG/10 ML VIAL IVP SCH (08:28)
[2025-01-15] MEDS: ATORVASTATIN 40 MG TAB PO SCH (08:34)
[2025-01-15] MEDS ORDERED: MAGNESIUM HYDROXIDE 2,400 MG/30 ML CUP PO PRN (09:00)
[2025-01-15 09:20] LABS: Glucose,Whole Blood 145 mg/dL (70-110)
[2025-01-15] MEDS: METOPROLOL TARTRATE 12.5 MG TAB PO SCH (09:28)
--- NOTE | 2025-01-15 10:02 | P.PN ---
Subjective Progress Note Date: 01/15/25 Principal diagnosis: Bicuspid aortic valve with severe regurgitation and moderate stenosis, ascending aortic aneurysm at 4.5 cm stable over 5 years, and preserved left ventricular function. Past medical history significant for factor V Leiden disorder on Eliquis as an outpatient, history of 2 deep vein thrombosis episodes to his right lower extremity, 1 after an ACL repair and another 1 spontaneous, hypertension, hyperlipidemia, exercise-induced asthma, osteoarthritis and is a lifetime non-smoker. POD #1 aortic valve replacement using a 27 mm Inspiris pericardial bioprosth esis, supra coronary ascending aortic replacement using a 32 mm Gelweave graft, exclusion left atrial appendage using a 40 mm Atriclip, intraoperative transesophageal echocardiogram and epiaortic scanning. Postoperative acute blood loss anemia, expected given hemodilution and cardiopulmonary bypass. The patient was seen in follow-up today January 15, 2025 at his bedside in the intensive care unit. He was successfully extubated at 6:05 PM last evening January 14, 2025, is currently sitting up to the bedside chair, is awake, alert, oriented x 3 and in no acute apparent distress. Oxygen saturations are 93% on room air and he is achieving 1000 mL on his incentive spirometry with encouragement. He denies any complaints of shortness of breath at this time, although is complaining of some surgical type pain to his chest tube insertion sites, rating his pain 4-5 out of 10 on the pain scale. He also reports feeling tired. Right IJ cordis and Cleveland-Brady catheter remains in place, current hemodynamics show a cardiac output of 5.5, cardiac index 3.1, PA pressures 22/10, CVP 6 mmHg and SVR 1060. Bedside telemetry is showing normal sinus rhythm heart rate 88 bpm. Atrial and ventricular epicardial pacemaker wires are in place and connected to backup bedside pacemaker generator on a VVI at 50 bpm. Mediastinal and right pleural chest tubes remain in place to low continuous wall suction -20 cm H2O. No airleak is present. Mediastinal chest tubes draining 80 mL output of thin serosanguineous drainage in the last 8 hours and 320 mL output since surgery. Right pleural chest tube remains in place draining 100 mL of thin serosanguineous drainage in the last 8 hours and 180 mL since surgery. Chest x- ray and laboratory results reviewed. Objective - Vital Signs Vital signs: Vital Signs Temp 98 F 01/15/25 04:00 Pulse 83 01/15/25 08:59 Resp 21 01/15/25 06:30 BP 103/74 01/14/25 19:00 Pulse Ox 92 L 01/15/25 08:59 FiO2 50 01/14/25 18:00 Intake & Output 01/14/25 01/15/25 01/15/25 18:59 06:59 18:59 Intake Total 549.335 866.818 0 Output Total 1475 855 Balance -925.665 11.818 0 Weight 78.6 kg Intake: IV 247 778 0.9ns for pressure bag 45 108 Sodium Chloride 0.9% 1, 550 000 ml @ 50 mls/hr IV . Q20H [facility] Rx#:[id number] co/ci 100 120 Intake, IV Titration 302.335 88.818 0 Amount Dexmedetomidine/0.9% NaCl 5.246 (Pmx) 400 mcg In Empty Bag 1 bag @ Titrate IV . Q0M [facility] Rx#:[id number] Insulin Regular 100 unit 2.180 38.818 0 In Sodium Chloride 0.9% 100 ml @ Per Protocol IV .Q0M [facility] Rx#:[id number] Sodium Chloride 0.9% 1, 250 50 000 ml @ 50 mls/hr IV . Q20H [facility] Rx#:[id number] propofoL 1,000 mg In 44.909 Empty Bag 1 bag @ Titrate IV .Q0M [facility] Rx#: [id number] Output: Chest Tube Drainage 270 260 Chest Tube Mediastinal 220 130 Right 50 130 Urine 855 595 Estimated Blood Loss 350 Other: Voiding Method Indwelling Catheter Indwelling Catheter ABP, PAP, CO, CI - Last Documented Arterial Blood Pressure 96/63 Pulmonary Artery Pressure 15/3 Cardiac Output 5.5 Cardiac Index 3.1 - Exam CONSTITUTIONAL: Sitting up to the bedside chair in the intensive care unit, appears comfortable, cooperative, no apparent acute distress. HEENT: Neck is supple, no JVD, no lymphadenopathy. Right IJ Cordis and Cleveland- Brady catheter in place and functioning. RESPIRATORY: Lungs sounds essentially clear throughout, diminished to his b ilateral bases. Respirations are symmetrical and nonlabored. Currently on room air with oxygen saturations 93%. Able to achieve 1000 mL on his incentive spirometry. Strong cough. CARDIOVASCULAR: Regular rhythm and rate. S1 and S2 present, negative for S3, gallop or murmur. Sternum is stable. Palpable peripheral pulses bilaterally. No calf pain or tenderness noted. Heart hugger in place with patient demonstrating appropriate use. Knee-high ZUNILDA hose and sequential compression devices in place to his bilateral lower extremities. GASTROINTESTINAL: Abdomen soft, nontender, nondistended. Hypoactive bowel sounds present 4 quadrants. Tolerating diet. Denies passing flatus. No guard ing or rigidity. GENITOURINARY: Delgado present draining clear, yellow urine. Urine output 265 mL in the last 8 hours. INTEGUMENTARY: Skin is warm and dry with no evidence of clubbing or cyanosis. Midline sternal incision clean dry and well approximated, covered with dry intact dressing. NEUROLOGIC: Cranial nerves II through XII intact. No focal deficits. MUSKULOSKELETAL: Able to move all extremities, strength equal bilaterally, generalized weakness. PSYCHIATRIC: Alert and oriented to person place and time, appropriate affect, intact judgment and insight. INVASIVE LINES AND TUBES: Atrial and ventricular epicardial pacemaker wires are in place and connected to backup bedside pacemaker generator on a VVI at 50 bpm. Mediastinal and right pleural chest tubes remain in place to low continuous wall suction -20 cm H2O. No airleak is present. Mediastinal chest tubes draining 80 mL output of thin serosanguineous drainage in the last 8 hours and 320 mL output since surgery. Right pleural chest tube remains in place draining 100 mL of thin serosanguineous drainage in the last 8 hours and 180 mL since surgery. Right internal jugular Cleveland/Cordis, right radial arterial line present. Last CO 5.5, CI 3.1, SVR 1060 PA 22/10 and CVP 6 mmHg. - Allied health notes Allied health notes reviewed: nursing - Labs CBC & Chem 7: 01/15/25 05:00 01/15/25 05:00 Labs: Abnormal Lab Results - Last 24 Hours (Table) 01/07/25 01/14/25 01/14/25 Range/Units 09:22 08:39 09:27 WBC (4.50-10.00) 10*3/uL RBC (4.40-5.60) 10*6/uL Hgb (13.0-17.0) g/dL Hct (39.6-50.0) % MCV (80.0-97.0) fL MCH (27.0-32.0) pg Plt Count (140-440) 10*3/uL Immature Gran # (0.00-0.04) 10*3/uL Neutrophils # (1.80-7.70) 10*3/uL Lymphocytes # (0.90-5.00) 10*3/uL Eosinophils # (0.04-0.35) 10*3/uL ABG pH (7.35-7.45) ABG pCO2 (35-45) mmHg ABG pO2 270 H 256 H (83-108) mmHg ABG HCO3 (21-25) mmol/L ABG Total CO2 (19-24) mmol/L ABG O2 Saturation >99.4 H >99.4 H (94-97) % ABG Hematocrit 28 L 29 L (34.0-46.0) % ABG Potassium (3.4-4.5) mmol/L ABG Ionized Calcium (4.5-5.3) mg/dL ABG Glucose 105 H 102 H (75-99) mg/dL ABG Lactic Acid (0.5-1.6) mmol/L Hemoglobin 9.2 L 9.4 L (13.0-17.5) gm/dL Sodium (137-145) mmol/L Glucose (74-99) mg/dL POC Glucose (mg/dL) (70-110) mg/dL Magnesium (1.6-2.3) mg/dL AST (17-59) U/L Total Protein (6.3-8.2) g/dL Albumin (3.5-5.0) g/dL Arterial Blood Potassium (3.4-4.5) mmol/L Arterial Blood Glucose 105 H 102 H (75-99) mg/dL Crossmatch See Detail 01/14/25 01/14/25 01/14/25 Range/Units 09:57 10:22 10:57 WBC (4.50-10.00) 10*3/uL RBC (4.40-5.60) 10*6/uL Hgb (13.0-17.0) g/dL Hct (39.6-50.0) % MCV (80.0-97.0) fL MCH (27.0-32.0) pg Plt Count (140-440) 10*3/uL Immature Gran # (0.00-0.04) 10*3/uL Neutrophils # (1.80-7.70) 10*3/uL Lymphocytes # (0.90-5.00) 10*3/uL Eosinophils # (0.04-0.35) 10*3/uL ABG pH 7.51 H (7.35-7.45) ABG pCO2 33 L 47 H (35-45) mmHg ABG pO2 >420 H >420 H 387 H (83-108) mmHg ABG HCO3 26 H 27 H 26 H (21-25) mmol/L ABG Total CO2 (19-24) mmol/L ABG O2 Saturation >99.4 H >99.4 H >99.4 H (94-97) % ABG Hematocrit 24 L 25 L 26 L (34.0-46.0) % ABG Potassium 4.6 H 5.4 H (3.4-4.5) mmol/L ABG Ionized Calcium 4.0 L 4.1 L 4.1 L (4.5-5.3) mg/dL ABG Glucose 109 H 118 H 113 H (75-99) mg/dL ABG Lactic Acid (0.5-1.6) mmol/L Hemoglobin 7.9 L 8.3 L 8.4 L (13.0-17.5) gm/dL Sodium (137-145) mmol/L Glucose (74-99) mg/dL POC Glucose (mg/dL) (70-110) mg/dL Magnesium (1.6-2.3) mg/dL AST (17-59) U/L Total Protein (6.3-8.2) g/dL Albumin (3.5-5.0) g/dL Arterial Blood Potassium 4.6 H 5.4 H (3.4-4.5) mmol/L Arterial Blood Glucose 109 H 118 H 113 H (75-99) mg/dL Crossmatch 01/14/25 01/14/25 01/14/25 Range/Units 11:32 11:35 12:11 WBC (4.50-10.00) 10*3/uL RBC 2.91 L (4.40-5.60) 10*6/uL Hgb 7.7 L (13.0-17.0) g/dL Hct 23.2 L (39.6-50.0) % MCV 79.7 L (80.0-97.0) fL MCH 26.5 L (27.0-32.0) pg Plt Count (140-440) 10*3/uL Immature Gran # 0.18 H (0.00-0.04) 10*3/uL Neutrophils # (1.80-7.70) 10*3/uL Lymphocytes # (0.90-5.00) 10*3/uL Eosinophils # (0.04-0.35) 10*3/uL ABG pH (7.35-7.45) ABG pCO2 (35-45) mmHg ABG pO2 >420 H >420 H (83-108) mmHg ABG HCO3 26 H (21-25) mmol/L ABG Total CO2 (19-24) mmol/L ABG O2 Saturation >99.4 H >99.4 H (94-97) % ABG Hematocrit 25 L 24 L (34.0-46.0) % ABG Potassium 5.6 H 5.5 H (3.4-4.5) mmol/L ABG Ionized Calcium 4.0 L (4.5-5.3) mg/dL ABG Glucose 116 H 133 H (75-99) mg/dL ABG Lactic Acid 2.1 H (0.5-1.6) mmol/L Hemoglobin 8.2 L 7.9 L (13.0-17.5) gm/dL Sodium (137-145) mmol/L Glucose (74-99) mg/dL POC Glucose (mg/dL) (70-110) mg/dL Magnesium (1.6-2.3) mg/dL AST (17-59) U/L Total Protein (6.3-8.2) g/dL Albumin (3.5-5.0) g/dL Arterial Blood Potassium 5.6 H 5.5 H (3.4-4.5) mmol/L Arterial Blood Glucose 116 H 133 H (75-99) mg/dL Crossmatch 01/14/25 01/14/25 01/14/25 Range/Units 14:20 14:20 14:22 WBC (4.50-10.00) 10*3/uL RBC 3.62 L (4.40-5.60) 10*6/uL Hgb 9.7 L D (13.0-17.0) g/dL Hct 29.4 L (39.6-50.0) % MCV (80.0-97.0) fL MCH 26.8 L (27.0-32.0) pg Plt Count 122 L (140-440) 10*3/uL Immature Gran # 0.07 H (0.00-0.04) 10*3/uL Neutrophils # (1.80-7.70) 10*3/uL Lymphocytes # 0.77 L (0.90-5.00) 10*3/uL Eosinophils # 0.02 L (0.04-0.35) 10*3/uL ABG pH (7.35-7.45) ABG pCO2 (35-45) mmHg ABG pO2 (83-108) mmHg ABG HCO3 (21-25) mmol/L ABG Total CO2 (19-24) mmol/L ABG O2 Saturation (94-97) % ABG Hematocrit (34.0-46.0) % ABG Potassium (3.4-4.5) mmol/L ABG Ionized Calcium (4.5-5.3) mg/dL ABG Glucose (75-99) mg/dL ABG Lactic Acid (0.5-1.6) mmol/L Hemoglobin (13.0-17.5) gm/dL Sodium (137-145) mmol/L Glucose 116 H (74-99) mg/dL POC Glucose (mg/dL) 127 H (70-110) mg/dL Magnesium 2.6 H (1.6-2.3) mg/dL AST (17-59) U/L Total Protein 4.6 L (6.3-8.2) g/dL Albumin 2.8 L (3.5-5.0) g/dL Arterial Blood Potassium (3.4-4.5) mmol/L Arterial Blood Glucose (75-99) mg/dL Crossmatch 01/14/25 01/14/25 01/14/25 Range/Units 14:48 15:08 16:11 WBC (4.50-10.00) 10*3/uL RBC (4.40-5.60) 10*6/uL Hgb (13.0-17.0) g/dL Hct (39.6-50.0) % MCV (80.0-97.0) fL MCH (27.0-32.0) pg Plt Count (140-440) 10*3/uL Immature Gran # (0.00-0.04) 10*3/uL Neutrophils # (1.80-7.70) 10*3/uL Lymphocytes # (0.90-5.00) 10*3/uL Eosinophils # (0.04-0.35) 10*3/uL ABG pH (7.35-7.45) ABG pCO2 (35-45) mmHg ABG pO2 381 H (83-108) mmHg ABG HCO3 (21-25) mmol/L ABG Total CO2 26 H (19-24) mmol/L ABG O2 Saturation >100.0 H (94-97) % ABG Hematocrit (34.0-46.0) % ABG Potassium (3.4-4.5) mmol/L ABG Ionized Calcium (4.5-5.3) mg/dL ABG Glucose (75-99) mg/dL ABG Lactic Acid (0.5-1.6) mmol/L Hemoglobin 10.3 L (13.0-17.5) gm/dL Sodium (137-145) mmol/L Glucose (74-99) mg/dL POC Glucose (mg/dL) 133 H 139 H (70-110) mg/dL Magnesium (1.6-2.3) mg/dL AST (17-59) U/L Total Protein (6.3-8.2) g/dL Albumin (3.5-5.0) g/dL Arterial Blood Potassium (3.4-4.5) mmol/L Arterial Blood Glucose (75-99) mg/dL Crossmatch 01/14/25 01/14/25 01/14/25 Range/Units 16:59 17:53 18:15 WBC (4.50-10.00) 10*3/uL RBC (4.40-5.60) 10*6/uL Hgb (13.0-17.0) g/dL Hct (39.6-50.0) % MCV (80.0-97.0) fL MCH (27.0-32.0) pg Plt Count (140-440) 10*3/uL Immature Gran # (0.00-0.04) 10*3/uL Neutrophils # (1.80-7.70) 10*3/uL Lymphocytes # (0.90-5.00) 10*3/uL Eosinophils # (0.04-0.35) 10*3/uL ABG pH (7.35-7.45) ABG pCO2 (35-45) mmHg ABG pO2 132 H (83-108) mmHg ABG HCO3 (21-25) mmol/L ABG Total CO2 26 H (19-24) mmol/L ABG O2 Saturation 99.2 H (94-97) % ABG Hematocrit (34.0-46.0) % ABG Potassium (3.4-4.5) mmol/L ABG Ionized Calcium (4.5-5.3) mg/dL ABG Glucose (75-99) mg/dL ABG Lactic Acid (0.5-1.6) mmol/L Hemoglobin 10.7 L (13.0-17.5) gm/dL Sodium (137-145) mmol/L Glucose (74-99) mg/dL POC Glucose (mg/dL) 154 H 142 H (70-110) mg/dL Magnesium (1.6-2.3) mg/dL AST (17-59) U/L Total Protein (6.3-8.2) g/dL Albumin (3.5-5.0) g/dL Arterial Blood Potassium (3.4-4.5) mmol/L Arterial Blood Glucose (75-99) mg/dL Crossmatch 01/14/25 01/14/25 01/14/25 Range/Units 18:16 19:01 19:31 WBC (4.50-10.00) 10*3/uL RBC 3.84 L 3.68 L (4.40-5.60) 10*6/uL Hgb 10.2 L 9.8 L (13.0-17.0) g/dL Hct 31.4 L 29.9 L (39.6-50.0) % MCV (80.0-97.0) fL MCH 26.6 L 26.6 L (27.0-32.0) pg Plt Count 131 L 139 L (140-440) 10*3/uL Immature Gran # 0.05 H (0.00-0.04) 10*3/uL Neutrophils # 8.81 H 8.40 H (1.80-7.70) 10*3/uL Lymphocytes # 0.46 L 0.39 L (0.90-5.00) 10*3/uL Eosinophils # 0.01 L 0.01 L (0.04-0.35) 10*3/uL ABG pH (7.35-7.45) ABG pCO2 (35-45) mmHg ABG pO2 (83-108) mmHg ABG HCO3 (21-25) mmol/L ABG Total CO2 (19-24) mmol/L ABG O2 Saturation (94-97) % ABG Hematocrit (34.0-46.0) % ABG Potassium (3.4-4.5) mmol/L ABG Ionized Calcium (4.5-5.3) mg/dL ABG Glucose (75-99) mg/dL ABG Lactic Acid (0.5-1.6) mmol/L Hemoglobin (13.0-17.5) gm/dL Sodium (137-145) mmol/L Glucose (74-99) mg/dL POC Glucose (mg/dL) 132 H (70-110) mg/dL Magnesium (1.6-2.3) mg/dL AST (17-59) U/L Total Protein (6.3-8.2) g/dL Albumin (3.5-5.0) g/dL Arterial Blood Potassium (3.4-4.5) mmol/L Arterial Blood Glucose (75-99) mg/dL Crossmatch 01/14/25 01/14/25 01/14/25 Range/Units 20:01 21:03 22:05 WBC (4.50-10.00) 10*3/uL RBC (4.40-5.60) 10*6/uL Hgb (13.0-17.0) g/dL Hct (39.6-50.0) % MCV (80.0-97.0) fL MCH (27.0-32.0) pg Plt Count (140-440) 10*3/uL Immature Gran # (0.00-0.04) 10*3/uL Neutrophils # (1.80-7.70) 10*3/uL Lymphocytes # (0.90-5.00) 10*3/uL Eosinophils # (0.04-0.35) 10*3/uL ABG pH (7.35-7.45) ABG pCO2 (35-45) mmHg ABG pO2 (83-108) mmHg ABG HCO3 (21-25) mmol/L ABG Total CO2 (19-24) mmol/L ABG O2 Saturation (94-97) % ABG Hematocrit (34.0-46.0) % ABG Potassium (3.4-4.5) mmol/L ABG Ionized Calcium (4.5-5.3) mg/dL ABG Glucose (75-99) mg/dL ABG Lactic Acid (0.5-1.6) mmol/L Hemoglobin (13.0-17.5) gm/dL Sodium (137-145) mmol/L Glucose (74-99) mg/dL POC Glucose (mg/dL) 127 H 136 H 141 H (70-110) mg/dL Magnesium (1.6-2.3) mg/dL AST (17-59) U/L Total Protein (6.3-8.2) g/dL Albumin (3.5-5.0) g/dL Arterial Blood Potassium (3.4-4.5) mmol/L Arterial Blood Glucose (75-99) mg/dL Crossmatch 01/14/25 01/15/25 01/15/25 Range/Units 23:08 00:04 00:59 WBC (4.50-10.00) 10*3/uL RBC (4.40-5.60) 10*6/uL Hgb (13.0-17.0) g/dL Hct (39.6-50.0) % MCV (80.0-97.0) fL MCH (27.0-32.0) pg Plt Count (140-440) 10*3/uL Immature Gran # (0.00-0.04) 10*3/uL Neutrophils # (1.80-7.70) 10*3/uL Lymphocytes # (0.90-5.00) 10*3/uL Eosinophils # (0.04-0.35) 10*3/uL ABG pH (7.35-7.45) ABG pCO2 (35-45) mmHg ABG pO2 (83-108) mmHg ABG HCO3 (21-25) mmol/L ABG Total CO2 (19-24) mmol/L ABG O2 Saturation (94-97) % ABG Hematocrit (34.0-46.0) % ABG Potassium (3.4-4.5) mmol/L ABG Ionized Calcium (4.5-5.3) mg/dL ABG Glucose (75-99) mg/dL ABG Lactic Acid (0.5-1.6) mmol/L Hemoglobin (13.0-17.5) gm/dL Sodium (137-145) mmol/L Glucose (74-99) mg/dL POC Glucose (mg/dL) 141 H 150 H 150 H (70-110) mg/dL Magnesium (1.6-2.3) mg/dL AST (17-59) U/L Total Protein (6.3-8.2) g/dL Albumin (3.5-5.0) g/dL Arterial Blood Potassium (3.4-4.5) mmol/L Arterial Blood Glucose (75-99) mg/dL Crossmatch 01/15/25 01/15/25 01/15/25 Range/Units 01:54 03:18 04:10 WBC (4.50-10.00) 10*3/uL RBC (4.40-5.60) 10*6/uL Hgb (13.0-17.0) g/dL Hct (39.6-50.0) % MCV (80.0-97.0) fL MCH (27.0-32.0) pg Plt Count (140-440) 10*3/uL Immature Gran # (0.00-0.04) 10*3/uL Neutrophils # (1.80-7.70) 10*3/uL Lymphocytes # (0.90-5.00) 10*3/uL Eosinophils # (0.04-0.35) 10*3/uL ABG pH (7.35-7.45) ABG pCO2 (35-45) mmHg ABG pO2 (83-108) mmHg ABG HCO3 (21-25) mmol/L ABG Total CO2 (19-24) mmol/L ABG O2 Saturation (94-97) % ABG Hematocrit (34.0-46.0) % ABG Potassium (3.4-4.5) mmol/L ABG Ionized Calcium (4.5-5.3) mg/dL ABG Glucose (75-99) mg/dL ABG Lactic Acid (0.5-1.6) mmol/L Hemoglobin (13.0-17.5) gm/dL Sodium (137-145) mmol/L Glucose (74-99) mg/dL POC Glucose (mg/dL) 127 H 115 H 126 H (70-110) mg/dL Magnesium (1.6-2.3) mg/dL AST (17-59) U/L Total Protein (6.3-8.2) g/dL Albumin (3.5-5.0) g/dL Arterial Blood Potassium (3.4-4.5) mmol/L Arterial Blood Glucose (75-99) mg/dL Crossmatch 01/15/25 01/15/25 01/15/25 Range/Units 05:00 05:00 05:08 WBC 11.19 H (4.50-10.00) 10*3/uL RBC 3.71 L (4.40-5.60) 10*6/uL Hgb 10.0 L (13.0-17.0) g/dL Hct 30.3 L (39.6-50.0) % MCV (80.0-97.0) fL MCH (27.0-32.0) pg Plt Count (140-440) 10*3/uL Immature Gran # (0.00-0.04) 10*3/uL Neutrophils # 10.01 H (1.80-7.70) 10*3/uL Lymphocytes # 0.43 L (0.90-5.00) 10*3/uL Eosinophils # 0.00 L (0.04-0.35) 10*3/uL ABG pH (7.35-7.45) ABG pCO2 (35-45) mmHg ABG pO2 (83-108) mmHg ABG HCO3 (21-25) mmol/L ABG Total CO2 (19-24) mmol/L ABG O2 Saturation (94-97) % ABG Hematocrit (34.0-46.0) % ABG Potassium (3.4-4.5) mmol/L ABG Ionized Calcium (4.5-5.3) mg/dL ABG Glucose (75-99) mg/dL ABG Lactic Acid (0.5-1.6) mmol/L Hemoglobin (13.0-17.5) gm/dL Sodium 135 L (137-145) mmol/L Glucose 105 H (74-99) mg/dL POC Glucose (mg/dL) 116 H (70-110) mg/dL Magnesium (1.6-2.3) mg/dL AST 68 H (17-59) U/L Total Protein 4.9 L (6.3-8.2) g/dL Albumin 3.0 L (3.5-5.0) g/dL Arterial Blood Potassium (3.4-4.5) mmol/L Arterial Blood Glucose (75-99) mg/dL Crossmatch 01/15/25 01/15/25 Range/Units 06:21 08:14 WBC (4.50-10.00) 10*3/uL RBC (4.40-5.60) 10*6/uL Hgb (13.0-17.0) g/dL Hct (39.6-50.0) % MCV (80.0-97.0) fL MCH (27.0-32.0) pg Plt Count (140-440) 10*3/uL Immature Gran # (0.00-0.04) 10*3/uL Neutrophils # (1.80-7.70) 10*3/uL Lymphocytes # (0.90-5.00) 10*3/uL Eosinophils # (0.04-0.35) 10*3/uL ABG pH (7.35-7.45) ABG pCO2 (35-45) mmHg ABG pO2 (83-108) mmHg ABG HCO3 (21-25) mmol/L ABG Total CO2 (19-24) mmol/L ABG O2 Saturation (94-97) % ABG Hematocrit (34.0-46.0) % ABG Potassium (3.4-4.5) mmol/L ABG Ionized Calcium (4.5-5.3) mg/dL ABG Glucose (75-99) mg/dL ABG Lactic Acid (0.5-1.6) mmol/L Hemoglobin (13.0-17.5) gm/dL Sodium (137-145) mmol/L Glucose (74-99) mg/dL POC Glucose (mg/dL) 111 H 142 H (70-110) mg/dL Magnesium (1.6-2.3) mg/dL AST (17-59) U/L Total Protein (6.3-8.2) g/dL Albumin (3.5-5.0) g/dL Arterial Blood Potassium (3.4-4.5) mmol/L Arterial Blood Glucose (75-99) mg/dL Crossmatch - Imaging and Cardiology Chest x-ray: report reviewed, image reviewed Assessment and Plan Assessment: Bicuspid aortic valve with severe regurgitation and moderate stenosis, status post aortic valve replacement using a 27 mm Inspiris pericardial bioprosthesis Ascending aortic aneurysm at 4.5 cm stable over 5 years, status post supra coronary ascending aortic replacement using a 32 mm Gelweave graft Factor V Leiden disorder, and Eliquis as an outpatient History of 2 previous deep vein thrombosis to his right lower extremity, 1 after ACL repair and another 1 spontaneous Hypertension Hyperlipidemia, triglycerides 295, cholesterol 250, LDL 132 Exercise-induced asthma, preoperative FEV1 2.64, 75% of predicted value Osteoarthritis Lifetime non-smoker Plan: Continue to maximize medical therapy with aspirin, statin, Plavix, and beta- chaparro. Will start metoprolol to tartrate to 12.5 mg p.o. twice daily with hold parameters. Keep atrial and ventricular epicardial pacemaker wires in place and connected to bedside backup pacemaker generator on a VVI at 50 bpm. Encourage incentive spirometry use 10 times every hour while awake. Bronchodilators per pulmonology. Will monitor daily labs and chest x-rays. Electrolyte replacement per protocol. Increase activity, ambulate as tolerated. PT/OT/cardiac rehab consulted. GI/DVT prophylaxis. Pain control per current medication regimen. Toradol and Robaxin added for better pain control. Insulin management per internal medicine. Preoperative hemoglobin A1c 5.8%. Patient needs to remain on continuous IV insulin for 48 hours, then may transition to subcutaneous per protocol. Discontinue [place], connect Cordis to continuous CVP monitoring. Continue chest tubes for another 24 hours, monitor and record output. Continue Delgado catheter for another 24 hours. Continue to monitor and record strict accurate intake and output. More recommendations to follow based on patient's clinical course Time with Patient: Greater than 30
[2025-01-15 10:04] LABS: Glucose,Whole Blood 147 mg/dL (70-110)
[2025-01-15 10:37] VITALS: BMI 25.5
[2025-01-15 10:57] LABS: Glucose,Whole Blood 113 mg/dL (70-110)
[2025-01-15] MEDS: KETOROLAC 15 MG/ML 1 ML VIAL IVP SCH (11:15)
--- NOTE | 2025-01-15 11:48 | P.PN ---
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 He also has a known history of ascending aortic aneurysm measuring 4.5 cm and a bicuspid aortic valve with severe regurgitation and mild stenosis. He was brought in today electively for surgery. He did undergo aortic valve replacement with a 27 mm Inspiris pericardial bio prostatic, ascending aortic replacement using a Gelweave graft, exclusion of left atrial appendage. Postoperative day #0. He is seen postoperatively in the intensive care unit. He remains intubated on the mechanical ventilator and assist-control mode at a rate of 16, tidal volume 500, FiO2 100% and a PEEP of 5. Arterial blood gases reveal a PaO2 of 381, PCO2 of 40 and a pH of 7.41. He is currently sedated on propofol at 50 mcg/kg/min. Normal saline at 50 mL/h. Cardiac output 5.4. Cardiac index 3.1. PA pressures 38/18, CVP 14. He is currently a paced V sensed with pacer wires in place. X-ray tracheal tube at 1.8 cm above the fernie. 2 mediastinal drainage catheters, 1 right thoracotomy tube. Right IJ [place]-Brady catheter in place. White count 8.5. Hemoglobin 9.7. Platelets 122. Sodium 137. Potassium 4.5. Bicarb 25. BUN 11. Creatinine 0.91. Glucose 127. He is initiated on DuoNeb inhalations. Heparin for DVT prophylaxis. The patient is seen today January 15, 2025 in follow-up in the intensive care unit. Postoperative day #1. He is currently sitting up in a chair. Awake and alert in no acute distress. Maintaining O2 saturations in the 90s on 2 L/min per nasal cannula. He is continued on insulin drip at 3.5 units an hour. Normal saline at 50 mL/h. Chest x-ray reveals postoperative cardiac surgery changes. 2 mediastinal chest tubes in place, right thoracotomy chest tube in place to Pleur-evac's and wall suction. Right IJ cordis catheter in place. Pacer wires in place with backup pacing in VVI mode at 50 bpm. White count 11.1. Hemoglobin 10.0. Platelets 151. Sodium 135. Potassium 4.0. Bicarb 25. BUN 12. Creatinine 0.85. Glucose 113. He remains on bronchodilators. Heparin for DVT prophylaxis. Objective - Vital Signs Vital signs: Vital Signs Temp 98 F 01/15/25 04:00 Pulse 81 01/15/25 11:00 Resp 25 H 01/15/25 11:00 BP 101/62 01/15/25 11:00 Pulse Ox 96 01/15/25 11:00 FiO2 50 01/14/25 18:00 Intake & Output 01/14/25 01/15/25 01/15/25 18:59 06:59 18:59 Intake Total 549.335 866.818 386.191 Output Total 1475 855 180 Balance -925.665 11.818 206.191 Weight 78.6 kg 78.6 kg Intake: IV 247 778 377 0.9ns for pressure bag 45 108 27 Magnesium Sulfate-D5w Pmx 100 1 gm In Dextrose/Water 1 100ml.bag @ 100 mls/hr IVPB ONCE ONE Rx#: [id number] Sodium Chloride 0.9% 1, 550 150 000 ml @ 20 mls/hr IV . Q24H [facility] Rx#:[id number] ceFAZolin 2 gm In 100 Dextrose 5% in Water 50 ml @ 100 mls/hr IVPB Q8HR [facility] Rx#:[id number] co/ci 100 120 Intake, IV Titration 302.335 88.818 9.191 Amount Dexmedetomidine/0.9% NaCl 5.246 (Pmx) 400 mcg In Empty Bag 1 bag @ Titrate IV . Q0M [facility] Rx#:[id number] Insulin Regular 100 unit 2.180 38.818 9.191 In Sodium Chloride 0.9% 100 ml @ Per Protocol IV .Q0M [facility] Rx#:[id number] Sodium Chloride 0.9% 1, 250 50 000 ml @ 20 mls/hr IV . Q24H [facility] Rx#:[id number] propofoL 1,000 mg In 44.909 Empty Bag 1 bag @ Titrate IV .Q0M [facility] Rx#: [id number] Output: Chest Tube Drainage 270 260 70 Chest Tube Mediastinal 220 130 60 Right 50 130 10 Urine 855 595 110 Estimated Blood Loss 350 Other: Voiding Method Indwelling Catheter Indwelling Catheter Indwelling Catheter ABP, PAP, CO, CI - Last Documented Arterial Blood Pressure 103/58 Pulmonary Artery Pressure 14/4 Cardiac Output 5.5 Cardiac Index 3.1 - Exam GENERAL EXAM: Alert, pleasant, 59-year-old male, on 2 L nasal cannula, up in a chair, fairly comfortable in no apparent distress. HEAD: Normocephalic. EYES: Normal reaction of pupils, equal size. NOSE: Clear with pink turbinates. THROAT: No erythema or exudates. NECK: No masses, no JVD. Right IJ cordis catheter in place. CHEST: Heart hugger in place. Sternal dressing dry and intact. Mediastinal and right pleural chest tubes in place. Pacer wires in place. LUNGS: Equal air entry with no crackles, wheeze, rhonchi or dullness. CVS: S1 and S2 normal with no audible murmur, regular rhythm. ABDOMEN: No hepatosplenomegaly, normal bowel sounds, no guarding or rigidity. SPINE: No scoliosis or deformity SKIN: No rashes CENTRAL NERVOUS SYSTEM: No focal deficits, tone is normal in all 4 extremities. EXTREMITIES: ZUNILDA hose and SCDs in place. Right radial arterial line in place. There is no peripheral edema. Peripheral pulses are intact. - Labs CBC & Chem 7: 01/15/25 05:00 01/15/25 05:00 Labs: Abnormal Lab Results - Last 24 Hours (Table) 01/07/25 01/14/25 01/14/25 Range/Units 09:22 08:39 09:27 WBC (4.50-10.00) 10*3/uL RBC (4.40-5.60) 10*6/uL Hgb (13.0-17.0) g/dL Hct (39.6-50.0) % MCV (80.0-97.0) fL MCH (27.0-32.0) pg Plt Count (140-440) 10*3/uL Immature Gran # (0.00-0.04) 10*3/uL Neutrophils # (1.80-7.70) 10*3/uL Lymphocytes # (0.90-5.00) 10*3/uL Eosinophils # (0.04-0.35) 10*3/uL ABG pH (7.35-7.45) ABG pCO2 (35-45) mmHg ABG pO2 270 H 256 H (83-108) mmHg ABG HCO3 (21-25) mmol/L ABG Total CO2 (19-24) mmol/L ABG O2 Saturation >99.4 H >99.4 H (94-97) % ABG Hematocrit 28 L 29 L (34.0-46.0) % ABG Potassium (3.4-4.5) mmol/L ABG Ionized Calcium (4.5-5.3) mg/dL ABG Glucose 105 H 102 H (75-99) mg/dL ABG Lactic Acid (0.5-1.6) mmol/L Hemoglobin 9.2 L 9.4 L (13.0-17.5) gm/dL Sodium (137-145) mmol/L Glucose (74-99) mg/dL POC Glucose (mg/dL) (70-110) mg/dL Magnesium (1.6-2.3) mg/dL AST (17-59) U/L Total Protein (6.3-8.2) g/dL Albumin (3.5-5.0) g/dL Arterial Blood Potassium (3.4-4.5) mmol/L Arterial Blood Glucose 105 H 102 H (75-99) mg/dL Crossmatch See Detail 01/14/25 01/14/25 01/14/25 Range/Units 09:57 10:22 10:57 WBC (4.50-10.00) 10*3/uL RBC (4.40-5.60) 10*6/uL Hgb (13.0-17.0) g/dL Hct (39.6-50.0) % MCV (80.0-97.0) fL MCH (27.0-32.0) pg Plt Count (140-440) 10*3/uL Immature Gran # (0.00-0.04) 10*3/uL Neutrophils # (1.80-7.70) 10*3/uL Lymphocytes # (0.90-5.00) 10*3/uL Eosinophils # (0.04-0.35) 10*3/uL ABG pH 7.51 H (7.35-7.45) ABG pCO2 33 L 47 H (35-45) mmHg ABG pO2 >420 H >420 H 387 H (83-108) mmHg ABG HCO3 26 H 27 H 26 H (21-25) mmol/L ABG Total CO2 (19-24) mmol/L ABG O2 Saturation >99.4 H >99.4 H >99.4 H (94-97) % ABG Hematocrit 24 L 25 L 26 L (34.0-46.0) % ABG Potassium 4.6 H 5.4 H (3.4-4.5) mmol/L ABG Ionized Calcium 4.0 L 4.1 L 4.1 L (4.5-5.3) mg/dL ABG Glucose 109 H 118 H 113 H (75-99) mg/dL ABG Lactic Acid (0.5-1.6) mmol/L Hemoglobin 7.9 L 8.3 L 8.4 L (13.0-17.5) gm/dL Sodium (137-145) mmol/L Glucose (74-99) mg/dL POC Glucose (mg/dL) (70-110) mg/dL Magnesium (1.6-2.3) mg/dL AST (17-59) U/L Total Protein (6.3-8.2) g/dL Albumin (3.5-5.0) g/dL Arterial Blood Potassium 4.6 H 5.4 H (3.4-4.5) mmol/L Arterial Blood Glucose 109 H 118 H 113 H (75-99) mg/dL Crossmatch 01/14/25 01/14/25 01/14/25 Range/Units 11:32 11:35 12:11 WBC (4.50-10.00) 10*3/uL RBC 2.91 L (4.40-5.60) 10*6/uL Hgb 7.7 L (13.0-17.0) g/dL Hct 23.2 L (39.6-50.0) % MCV 79.7 L (80.0-97.0) fL MCH 26.5 L (27.0-32.0) pg Plt Count (140-440) 10*3/uL Immature Gran # 0.18 H (0.00-0.04) 10*3/uL Neutrophils # (1.80-7.70) 10*3/uL Lymphocytes # (0.90-5.00) 10*3/uL Eosinophils # (0.04-0.35) 10*3/uL ABG pH (7.35-7.45) ABG pCO2 (35-45) mmHg ABG pO2 >420 H >420 H (83-108) mmHg ABG HCO3 26 H (21-25) mmol/L ABG Total CO2 (19-24) mmol/L ABG O2 Saturation >99.4 H >99.4 H (94-97) % ABG Hematocrit 25 L 24 L (34.0-46.0) % ABG Potassium 5.6 H 5.5 H (3.4-4.5) mmol/L ABG Ionized Calcium 4.0 L (4.5-5.3) mg/dL ABG Glucose 116 H 133 H (75-99) mg/dL ABG Lactic Acid 2.1 H (0.5-1.6) mmol/L Hemoglobin 8.2 L 7.9 L (13.0-17.5) gm/dL Sodium (137-145) mmol/L Glucose (74-99) mg/dL POC Glucose (mg/dL) (70-110) mg/dL Magnesium (1.6-2.3) mg/dL AST (17-59) U/L Total Protein (6.3-8.2) g/dL Albumin (3.5-5.0) g/dL Arterial Blood Potassium 5.6 H 5.5 H (3.4-4.5) mmol/L Arterial Blood Glucose 116 H 133 H (75-99) mg/dL Crossmatch 01/14/25 01/14/25 01/14/25 Range/Units 14:20 14:20 14:22 WBC (4.50-10.00) 10*3/uL RBC 3.62 L (4.40-5.60) 10*6/uL Hgb 9.7 L D (13.0-17.0) g/dL Hct 29.4 L (39.6-50.0) % MCV (80.0-97.0) fL MCH 26.8 L (27.0-32.0) pg Plt Count 122 L (140-440) 10*3/uL Immature Gran # 0.07 H (0.00-0.04) 10*3/uL Neutrophils # (1.80-7.70) 10*3/uL Lymphocytes # 0.77 L (0.90-5.00) 10*3/uL Eosinophils # 0.02 L (0.04-0.35) 10*3/uL ABG pH (7.35-7.45) ABG pCO2 (35-45) mmHg ABG pO2 (83-108) mmHg ABG HCO3 (21-25) mmol/L ABG Total CO2 (19-24) mmol/L ABG O2 Saturation (94-97) % ABG Hematocrit (34.0-46.0) % ABG Potassium (3.4-4.5) mmol/L ABG Ionized Calcium (4.5-5.3) mg/dL ABG Glucose (75-99) mg/dL ABG Lactic Acid (0.5-1.6) mmol/L Hemoglobin (13.0-17.5) gm/dL Sodium (137-145) mmol/L Glucose 116 H (74-99) mg/dL POC Glucose (mg/dL) 127 H (70-110) mg/dL Magnesium 2.6 H (1.6-2.3) mg/dL AST (17-59) U/L Total Protein 4.6 L (6.3-8.2) g/dL Albumin 2.8 L (3.5-5.0) g/dL Arterial Blood Potassium (3.4-4.5) mmol/L Arterial Blood Glucose (75-99) mg/dL Crossmatch 01/14/25 01/14/25 01/14/25 Range/Units 14:48 15:08 16:11 WBC (4.50-10.00) 10*3/uL RBC (4.40-5.60) 10*6/uL Hgb (13.0-17.0) g/dL Hct (39.6-50.0) % MCV (80.0-97.0) fL MCH (27.0-32.0) pg Plt Count (140-440) 10*3/uL Immature Gran # (0.00-0.04) 10*3/uL Neutrophils # (1.80-7.70) 10*3/uL Lymphocytes # (0.90-5.00) 10*3/uL Eosinophils # (0.04-0.35) 10*3/uL ABG pH (7.35-7.45) ABG pCO2 (35-45) mmHg ABG pO2 381 H (83-108) mmHg ABG HCO3 (21-25) mmol/L ABG Total CO2 26 H (19-24) mmol/L ABG O2 Saturation >100.0 H (94-97) % ABG Hematocrit (34.0-46.0) % ABG Potassium (3.4-4.5) mmol/L ABG Ionized Calcium (4.5-5.3) mg/dL ABG Glucose (75-99) mg/dL ABG Lactic Acid (0.5-1.6) mmol/L Hemoglobin 10.3 L (13.0-17.5) gm/dL Sodium (137-145) mmol/L Glucose (74-99) mg/dL POC Glucose (mg/dL) 133 H 139 H (70-110) mg/dL Magnesium (1.6-2.3) mg/dL AST (17-59) U/L Total Protein (6.3-8.2) g/dL Albumin (3.5-5.0) g/dL Arterial Blood Potassium (3.4-4.5) mmol/L Arterial Blood Glucose (75-99) mg/dL Crossmatch 01/14/25 01/14/25 01/14/25 Range/Units 16:59 17:53 18:15 WBC (4.50-10.00) 10*3/uL RBC (4.40-5.60) 10*6/uL Hgb (13.0-17.0) g/dL Hct (39.6-50.0) % MCV (80.0-97.0) fL MCH (27.0-32.0) pg Plt Count (140-440) 10*3/uL Immature Gran # (0.00-0.04) 10*3/uL Neutrophils # (1.80-7.70) 10*3/uL Lymphocytes # (0.90-5.00) 10*3/uL Eosinophils # (0.04-0.35) 10*3/uL ABG pH (7.35-7.45) ABG pCO2 (35-45) mmHg ABG pO2 132 H (83-108) mmHg ABG HCO3 (21-25) mmol/L ABG Total CO2 26 H (19-24) mmol/L ABG O2 Saturation 99.2 H (94-97) % ABG Hematocrit (34.0-46.0) % ABG Potassium (3.4-4.5) mmol/L ABG Ionized Calcium (4.5-5.3) mg/dL ABG Glucose (75-99) mg/dL ABG Lactic Acid (0.5-1.6) mmol/L Hemoglobin 10.7 L (13.0-17.5) gm/dL Sodium (137-145) mmol/L Glucose (74-99) mg/dL POC Glucose (mg/dL) 154 H 142 H (70-110) mg/dL Magnesium (1.6-2.3) mg/dL AST (17-59) U/L Total Protein (6.3-8.2) g/dL Albumin (3.5-5.0) g/dL Arterial Blood Potassium (3.4-4.5) mmol/L Arterial Blood Glucose (75-99) mg/dL Crossmatch 01/14/25 01/14/25 01/14/25 Range/Units 18:16 19:01 19:31 WBC (4.50-10.00) 10*3/uL RBC 3.84 L 3.68 L (4.40-5.60) 10*6/uL Hgb 10.2 L 9.8 L (13.0-17.0) g/dL Hct 31.4 L 29.9 L (39.6-50.0) % MCV (80.0-97.0) fL MCH 26.6 L 26.6 L (27.0-32.0) pg Plt Count 131 L 139 L (140-440) 10*3/uL Immature Gran # 0.05 H (0.00-0.04) 10*3/uL Neutrophils # 8.81 H 8.40 H (1.80-7.70) 10*3/uL Lymphocytes # 0.46 L 0.39 L (0.90-5.00) 10*3/uL Eosinophils # 0.01 L 0.01 L (0.04-0.35) 10*3/uL ABG pH (7.35-7.45) ABG pCO2 (35-45) mmHg ABG pO2 (83-108) mmHg ABG HCO3 (21-25) mmol/L ABG Total CO2 (19-24) mmol/L ABG O2 Saturation (94-97) % ABG Hematocrit (34.0-46.0) % ABG Potassium (3.4-4.5) mmol/L ABG Ionized Calcium (4.5-5.3) mg/dL ABG Glucose (75-99) mg/dL ABG Lactic Acid (0.5-1.6) mmol/L Hemoglobin (13.0-17.5) gm/dL Sodium (137-145) mmol/L Glucose (74-99) mg/dL POC Glucose (mg/dL) 132 H (70-110) mg/dL Magnesium (1.6-2.3) mg/dL AST (17-59) U/L Total Protein (6.3-8.2) g/dL Albumin (3.5-5.0) g/dL Arterial Blood Potassium (3.4-4.5) mmol/L Arterial Blood Glucose (75-99) mg/dL Crossmatch 01/14/25 01/14/25 01/14/25 Range/Units 20:01 21:03 22:05 WBC (4.50-10.00) 10*3/uL RBC (4.40-5.60) 10*6/uL Hgb (13.0-17.0) g/dL Hct (39.6-50.0) % MCV (80.0-97.0) fL MCH (27.0-32.0) pg Plt Count (140-440) 10*3/uL Immature Gran # (0.00-0.04) 10*3/uL Neutrophils # (1.80-7.70) 10*3/uL Lymphocytes # (0.90-5.00) 10*3/uL Eosinophils # (0.04-0.35) 10*3/uL ABG pH (7.35-7.45) ABG pCO2 (35-45) mmHg ABG pO2 (83-108) mmHg ABG HCO3 (21-25) mmol/L ABG Total CO2 (19-24) mmol/L ABG O2 Saturation (94-97) % ABG Hematocrit (34.0-46.0) % ABG Potassium (3.4-4.5) mmol/L ABG Ionized Calcium (4.5-5.3) mg/dL ABG Glucose (75-99) mg/dL ABG Lactic Acid (0.5-1.6) mmol/L Hemoglobin (13.0-17.5) gm/dL Sodium (137-145) mmol/L Glucose (74-99) mg/dL POC Glucose (mg/dL) 127 H 136 H 141 H (70-110) mg/dL Magnesium (1.6-2.3) mg/dL AST (17-59) U/L Total Protein (6.3-8.2) g/dL Albumin (3.5-5.0) g/dL Arterial Blood Potassium (3.4-4.5) mmol/L Arterial Blood Glucose (75-99) mg/dL Crossmatch 01/14/25 01/15/25 01/15/25 Range/Units 23:08 00:04 00:59 WBC (4.50-10.00) 10*3/uL RBC (4.40-5.60) 10*6/uL Hgb (13.0-17.0) g/dL Hct (39.6-50.0) % MCV (80.0-97.0) fL MCH (27.0-32.0) pg Plt Count (140-440) 10*3/uL Immature Gran # (0.00-0.04) 10*3/uL Neutrophils # (1.80-7.70) 10*3/uL Lymphocytes # (0.90-5.00) 10*3/uL Eosinophils # (0.04-0.35) 10*3/uL ABG pH (7.35-7.45) ABG pCO2 (35-45) mmHg ABG pO2 (83-108) mmHg ABG HCO3 (21-25) mmol/L ABG Total CO2 (19-24) mmol/L ABG O2 Saturation (94-97) % ABG Hematocrit (34.0-46.0) % ABG Potassium (3.4-4.5) mmol/L ABG Ionized Calcium (4.5-5.3) mg/dL ABG Glucose (75-99) mg/dL ABG Lactic Acid (0.5-1.6) mmol/L Hemoglobin (13.0-17.5) gm/dL Sodium (137-145) mmol/L Glucose (74-99) mg/dL POC Glucose (mg/dL) 141 H 150 H 150 H (70-110) mg/dL Magnesium (1.6-2.3) mg/dL AST (17-59) U/L Total Protein (6.3-8.2) g/dL Albumin (3.5-5.0) g/dL Arterial Blood Potassium (3.4-4.5) mmol/L Arterial Blood Glucose (75-99) mg/dL Crossmatch 01/15/25 01/15/25 01/15/25 Range/Units 01:54 03:18 04:10 WBC (4.50-10.00) 10*3/uL RBC (4.40-5.60) 10*6/uL Hgb (13.0-17.0) g/dL Hct (39.6-50.0) % MCV (80.0-97.0) fL MCH (27.0-32.0) pg Plt Count (140-440) 10*3/uL Immature Gran # (0.00-0.04) 10*3/uL Neutrophils # (1.80-7.70) 10*3/uL Lymphocytes # (0.90-5.00) 10*3/uL Eosinophils # (0.04-0.35) 10*3/uL ABG pH (7.35-7.45) ABG pCO2 (35-45) mmHg ABG pO2 (83-108) mmHg ABG HCO3 (21-25) mmol/L ABG Total CO2 (19-24) mmol/L ABG O2 Saturation (94-97) % ABG Hematocrit (34.0-46.0) % ABG Potassium (3.4-4.5) mmol/L ABG Ionized Calcium (4.5-5.3) mg/dL ABG Glucose (75-99) mg/dL ABG Lactic Acid (0.5-1.6) mmol/L Hemoglobin (13.0-17.5) gm/dL Sodium (137-145) mmol/L Glucose (74-99) mg/dL POC Glucose (mg/dL) 127 H 115 H 126 H (70-110) mg/dL Magnesium (1.6-2.3) mg/dL AST (17-59) U/L Total Protein (6.3-8.2) g/dL Albumin (3.5-5.0) g/dL Arterial Blood Potassium (3.4-4.5) mmol/L Arterial Blood Glucose (75-99) mg/dL Crossmatch 01/15/25 01/15/25 01/15/25 Range/Units 05:00 05:00 05:08 WBC 11.19 H (4.50-10.00) 10*3/uL RBC 3.71 L (4.40-5.60) 10*6/uL Hgb 10.0 L (13.0-17.0) g/dL Hct 30.3 L (39.6-50.0) % MCV (80.0-97.0) fL MCH (27.0-32.0) pg Plt Count (140-440) 10*3/uL Immature Gran # (0.00-0.04) 10*3/uL Neutrophils # 10.01 H (1.80-7.70) 10*3/uL Lymphocytes # 0.43 L (0.90-5.00) 10*3/uL Eosinophils # 0.00 L (0.04-0.35) 10*3/uL ABG pH (7.35-7.45) ABG pCO2 (35-45) mmHg ABG pO2 (83-108) mmHg ABG HCO3 (21-25) mmol/L ABG Total CO2 (19-24) mmol/L ABG O2 Saturation (94-97) % ABG Hematocrit (34.0-46.0) % ABG Potassium (3.4-4.5) mmol/L ABG Ionized Calcium (4.5-5.3) mg/dL ABG Glucose (75-99) mg/dL ABG Lactic Acid (0.5-1.6) mmol/L Hemoglobin (13.0-17.5) gm/dL Sodium 135 L (137-145) mmol/L Glucose 105 H (74-99) mg/dL POC Glucose (mg/dL) 116 H (70-110) mg/dL Magnesium (1.6-2.3) mg/dL AST 68 H (17-59) U/L Total Protein 4.9 L (6.3-8.2) g/dL Albumin 3.0 L (3.5-5.0) g/dL Arterial Blood Potassium (3.4-4.5) mmol/L Arterial Blood Glucose (75-99) mg/dL Crossmatch 01/15/25 01/15/25 01/15/25 Range/Units 06:21 08:14 09:20 WBC (4.50-10.00) 10*3/uL RBC (4.40-5.60) 10*6/uL Hgb (13.0-17.0) g/dL Hct (39.6-50.0) % MCV (80.0-97.0) fL MCH (27.0-32.0) pg Plt Count (140-440) 10*3/uL Immature Gran # (0.00-0.04) 10*3/uL Neutrophils # (1.80-7.70) 10*3/uL Lymphocytes # (0.90-5.00) 10*3/uL Eosinophils # (0.04-0.35) 10*3/uL ABG pH (7.35-7.45) ABG pCO2 (35-45) mmHg ABG pO2 (83-108) mmHg ABG HCO3 (21-25) mmol/L ABG Total CO2 (19-24) mmol/L ABG O2 Saturation (94-97) % ABG Hematocrit (34.0-46.0) % ABG Potassium (3.4-4.5) mmol/L ABG Ionized Calcium (4.5-5.3) mg/dL ABG Glucose (75-99) mg/dL ABG Lactic Acid (0.5-1.6) mmol/L Hemoglobin (13.0-17.5) gm/dL Sodium (137-145) mmol/L Glucose (74-99) mg/dL POC Glucose (mg/dL) 111 H 142 H 145 H (70-110) mg/dL Magnesium (1.6-2.3) mg/dL AST (17-59) U/L Total Protein (6.3-8.2) g/dL Albumin (3.5-5.0) g/dL Arterial Blood Potassium (3.4-4.5) mmol/L Arterial Blood Glucose (75-99) mg/dL Crossmatch 01/15/25 01/15/25 Range/Units 10:03 10:56 WBC (4.50-10.00) 10*3/uL RBC (4.40-5.60) 10*6/uL Hgb (13.0-17.0) g/dL Hct (39.6-50.0) % MCV (80.0-97.0) fL MCH (27.0-32.0) pg Plt Count (140-440) 10*3/uL Immature Gran # (0.00-0.04) 10*3/uL Neutrophils # (1.80-7.70) 10*3/uL Lymphocytes # (0.90-5.00) 10*3/uL Eosinophils # (0.04-0.35) 10*3/uL ABG pH (7.35-7.45) ABG pCO2 (35-45) mmHg ABG pO2 (83-108) mmHg ABG HCO3 (21-25) mmol/L ABG Total CO2 (19-24) mmol/L ABG O2 Saturation (94-97) % ABG Hematocrit (34.0-46.0) % ABG Potassium (3.4-4.5) mmol/L ABG Ionized Calcium (4.5-5.3) mg/dL ABG Glucose (75-99) mg/dL ABG Lactic Acid (0.5-1.6) mmol/L Hemoglobin (13.0-17.5) gm/dL Sodium (137-145) mmol/L Glucose (74-99) mg/dL POC Glucose (mg/dL) 147 H 113 H (70-110) mg/dL Magnesium (1.6-2.3) mg/dL AST (17-59) U/L Total Protein (6.3-8.2) g/dL Albumin (3.5-5.0) g/dL Arterial Blood Potassium (3.4-4.5) mmol/L Arterial Blood Glucose (75-99) mg/dL Crossmatch Assessment and Plan Assessment: Bicuspid aortic valve with severe regurgitation and moderate stenosis, ascending aortic aneurysm at 4.5 cm. Status post aortic valve replacement utilizing a 27 mm Inspiris pericardial bioprosthetic. Ascending aortic replacement utilizing a 32 mm Gelweave graft. Exclusion of left atrial appendage. Postoperative day #1 Mechanical ventilator management, expected outcome of surgery, extubated and on 2 L nasal cannula History of factor V Leiden deficiency Hyperlipidemia Plan: The patient was seen and evaluated Chest x-ray, labs and medications reviewed Stable on 2 L nasal cannula Mediastinal and right pleural chest tubes remain in place Working well with the incentive spirometer Titrate down the FiO2 as tolerated Continue bronchodilators Heparin for DVT prophylaxis Increase his activity as tolerated We will continue to follow I have personally seen and examined the patient, performed the documentation and the assessment and plan as written. Number of minutes spent on the visit: 10 Dictation was produced using [employer] dictation software. Please excuse any grammatical, word or spelling errors.
[2025-01-15 12:13] LABS: Glucose,Whole Blood 127 mg/dL (70-110)
[2025-01-15 13:35] LABS: Glucose,Whole Blood 149 mg/dL (70-110)
[2025-01-15 14:53] LABS: Glucose,Whole Blood 135 mg/dL (70-110)
[2025-01-15 16:51] LABS: Glucose,Whole Blood 104 mg/dL (70-110)
--- NOTE | 2025-01-15 18:20 | P.PN ---
Progress Note - Text Progress Note Date: 01/15/25 - Chief Complaint Arctic valve replacement - History of Present Illness 59-year-old patient follows with Dr. Ozzy Carbone. Chronic medical conditions include asthma, factor V Leiden mutation, prior history of DVT, hyperlipidemia osteoarthritis, exercise-induced asthma, migraines, history of kidney stones. Patient in today has undergone aortic valve replacement., With a bioprosthesis. Ascending aorta replacement with a graft. Postprocedure in the ICU. Intubated. Currently weaning on CPAP. Current drips include Precedex and insulin. Patient has 2 mediastinal and 1 right pleural chest tube. Currently lethargic not able to give a history. January 15: Patient seen this morning in the ICU. Family present. Up in a chair. Clear liquids. Some pain with breathing. Chest tubes in place-some serosanguineous output. Delgado catheter in place. On insulin drip. Sinus rhythm with some ectopics. Using incentive spirometry. The Active Medications Acetaminophen (Acetaminophen Tab 325 Mg Tab) 650 mg PO Q4HR PRN PRN Reason: Fever And/ Or Mild Pain (1-3) Albuterol/Ipratropium (Ipratropium-Albuterol 3 Ml Neb) 3 ml INHALATION RT-Q2H PRN PRN Reason: Shortness Of Breath Or Wheezing Albuterol/Ipratropium (Ipratropium-Albuterol 3 Ml Neb) 3 ml INHALATION RT-QID [facility] Last Admin: 01/15/25 16:21 Dose: 3 ml Aspirin (Aspirin 325 Mg Tab) 325 mg PO DAILY [facility] Last Admin: 01/15/25 08:26 Dose: 325 mg Atorvastatin Calcium (Atorvastatin 40 Mg Tab) 40 mg PO DAILY [facility] Last Admin: 01/15/25 08:34 Dose: 40 mg Benzocaine/Menthol (Benzocaine/Menthol Lozeng 1 Each Lozenge) 1 each MUCOUS MEM Q2H PRN PRN Reason: Sore Throat Bisacodyl (Bisacodyl 10 Mg Supp) 10 mg RECTAL DAILY PRN PRN Reason: Constipation Clopidogrel Bisulfate (Clopidogrel 75 Mg Tab) 75 mg PO DAILY [facility] Last Admin: 01/15/25 08:27 Dose: 75 mg Dextrose/Water (Dextrose 50% Syringe 50 Ml) 25 ml IVP PER PROTOCOL PRN; Protocol PRN Reason: Hypoglycemia Dextrose/Water (Dextrose 50% Syringe 50 Ml) 50 ml IVP PER PROTOCOL PRN; Protocol PRN Reason: Hypoglycemia Heparin Sodium (Porcine) (Heparin Sodium,Porcine 5,000 Unit/Ml 1 Ml Vial) 5,000 unit SQ Q8HR [facility] Last Admin: 01/15/25 16:47 Dose: 5,000 unit Hydralazine HCl (Hydralazine Hcl 20 Mg/Ml 1 Ml Vial) 10 mg IVP Q1H PRN PRN Reason: Blood Pressure - High Amiodarone HCl 150 mg/ (Dextrose/Water) 103 mls @ 618 mls/hr IV .Q10M PRN PRN Reason: A.FIB/FLUTTER Albumin Human 250 ml/ IV (Solution) 250 mls @ 250 mls/hr IVPB Q1HR PRN; Protocol PRN Reason: For Volume Stop: 01/16/25 13:56 Last Admin: 01/15/25 18:05 Dose: 250 mls/hr Amiodarone HCl 360 mg/ (Dextrose/Water) 200 mls @ 33.333 mls/hr IV .Q6H PRN; Protocol PRN Reason: Cardiac Arrhythmia Amiodarone HCl 450 mg/ (Dextrose/Water) 250 mls @ 16.667 mls/hr IV .Q15H PRN; Protocol PRN Reason: Cardiac Arrhythmia Calcium Gluconate/Sodium (Chloride 2 gm/ IV Solution) 100 mls @ 100 mls/hr IVPB ONCE PRN PRN Reason: Ionized Calcium less than 4.4 Stop: 01/18/25 13:56 Insulin Human Regular 100 unit (/ Sodium Chloride) 101 mls @ 0 mls/hr IV .Q0M LCINT; Protocol Last Titration: 01/15/25 16:51 Dose: 0 unit/hr, 0 mls/hr Sodium Chloride (Saline 0.9%) 1,000 mls @ 20 mls/hr IV .Q24H [facility] Last Admin: 01/15/25 16:47 Dose: 20 mls/hr Ketorolac Tromethamine (Ketorolac 15 Mg/Ml 1 Ml Vial) 15 mg IVP Q6HR [facility] Stop: 01/20/25 09:55 Last Admin: 01/15/25 17:42 Dose: 15 mg Magnesium Hydroxide (Magnesium Hydroxide 2,400 Mg/30 Ml Cup) 2,400 mg PO BID PRN PRN Reason: Constipation Methocarbamol (Methocarbamol 750 Mg Tab) 750 mg PO QID PRN PRN Reason: Muscle Spasm Metoclopramide HCl (Metoclopramide 5 Mg/Ml 2 Ml Vial) 10 mg IVP Q4H PRN PRN Reason: Nausea And Vomiting Last Admin: 01/15/25 06:18 Dose: 10 mg Metoprolol Tartrate (Metoprolol Tartrate 12.5 Mg Tab) 12.5 mg PO BID [facility] Last Admin: 01/15/25 09:28 Dose: 12.5 mg Miscellaneous Information (Potassium Replacement Protocol 1 Each Misc) 1 each MISCELLANE DAILY PRN; Protocol PRN Reason: Per Protocol Miscellaneous Information (Magnesium Replacement Protocol 1 Each Misc) 1 each MISCELLANE DAILY PRN; Protocol PRN Reason: Per Protocol Morphine Sulfate (Morphine Sulfate 2 Mg/Ml Syringe) 2 mg IVP Q2HR PRN PRN Reason: Moderate Pain (Scale 4 to 6) Last Admin: 01/15/25 05:45 Dose: 2 mg Ondansetron HCl (Ondansetron 4 Mg/2 Ml Vial) 4 mg IVP Q6HR PRN PRN Reason: Nausea And Vomiting Last Admin: 01/14/25 21:53 Dose: 4 mg Oxycodone HCl (Oxycodone Hcl 5 Mg Tab) 5 mg PO Q4HR PRN PRN Reason: Moderate Pain (Scale 4 to 6) Last Admin: 01/15/25 08:27 Dose: 5 mg Oxycodone HCl (Oxycodone Hcl 5 Mg Tab) 10 mg PO Q4HR PRN PRN Reason: Severe Pain (Scale 7 to 10) Last Admin: 01/15/25 17:41 Dose: 10 mg Pantoprazole Sodium (Pantoprazole 40 Mg Tablet) 40 mg PO AC-BRKFST [facility] Senna/Docusate Sodium (Sennosides-Docusate Sodium 1 Each Tab) 2 each PO HS [facility] Last Admin: 01/14/25 21:23 Dose: 2 each Sodium Chloride (Sodium Chloride 0.9% Flush 10 Ml Syringe) 10 ml IV BID [facility] Last Admin: 01/15/25 08:28 Dose: 10 ml Social history: Non-smoker. Alcohol rarely. Physical examination: VITAL SIGNS: 81, 16, 108 x 65, 91% GENERAL: Up in a recliner, awake chest tubes x 3 EYES: Pupils equal. Conjunctiva wicho l. HEENT: [External appearance of nose and ears normal, endotracheal tube NECK: JVD unable to assess; masses not palpable. HEART: First and second heart sounds are normal; no edema. LUNGS: Respiratory rate increased; decreased breath sound. ABDOMEN: Soft, nontender, liver spleen not palpable, no masses palpable. Delgado catheter PSYCH: AO x 3, mood affect normal MUSCULOSKELETAL:No Clubbing/cyanosis;muscles-grossly intact INVESTIGATIONS, reviewed in the clinical context: January 15: White count 1.1 hemoglobin 10 platelets 151 potassium 4 creatinine 0.85 January 14, 2025: White count 8.5 hemoglobin 9.7 platelets 122 sodium 137 potassium 4.5 BUN 11 creatinine 0.91 albumin 2.8 Previous labs: January 07, 2025: White count 4.2 hemoglobin 11.5 platelets 242 December 09, 2024 LDL 132 Assessment plan: - Bicuspid aortic valve with severe regurgitation and moderate stenosis ascending aortic aneurysm at 4.5 cm. Stable over 5 years.: Followed by aortic valve replacement with pericardial bioprosthesis and ascending aorta replacement with a graft by Dr. Corona - 2 mediastinal chest tubes and 1 right pleural chest tube. -IV insulin drip. Follow Accu-Cheks closely -Status post postop ventilator assist, patient extubated - Hypoalbuminemia, postop. Acute phase reactant. Received IV albumin - Hyperlipidemia Statins - Normocytic anemia. With some element of acute postprocedure blood loss anemia expected from surgery Check iron studies. B12 folate - Essential hypertension Currently blood pressure on the softer side. Follow closely - Chronic DVT Eliquis currently held - Primary osteoarthritis Pain medication as needed - Factor V Leiden mutation On Eliquis Patient on aspirin, Plavix. Currently off Eliquis per surgical team. Chest tubes in place. Thank you Dr. Corona Past Medical History Past Medical History: Asthma, Blood Disorder, Deep Vein Thrombosis (DVT), Hyperlipidemia, Osteoarthritis (OA) Additional Past Medical History / Comment(s): EXERCISE INDUCED ASTHMA, MIGRAINES, TORN LEFT MENISCUS, FACTOR 5 LEIDEN, VARICOSE VEIN RIGHT LEG, HX KIDNEY STONES. History of Any Multi-Drug Resistant Organisms: None Reported Past Surgical History: Heart Catheterization, Hernia Repair, Orthopedic Surgery Additional Past Surgical History / Comment(s): HERNIA REPAIR X2, RIGHT MENISCUS REPAIR, LEFT KNEE SURGERY, RIGHT ACL REPAIR, PROCEDURE FOR KIDNEY STONE, SONY. Past Anesthesia/Blood Transfusion Reactions: No Reported Reaction Additional Past Anesthesia/Blood Transfusion Reaction / Comm: DIFFICULTY WAKING UP - STATES GROGGY FOR HOURS. Smoking Status: Never smoker
[2025-01-15 20:01] LABS: Glucose,Whole Blood 152 mg/dL (70-110)
[2025-01-15 21:30] LABS: Glucose,Whole Blood 150 mg/dL (70-110)
[2025-01-15 22:31] LABS: Glucose,Whole Blood 151 mg/dL (70-110)
[2025-01-16 00:09] LABS: Glucose,Whole Blood 108 mg/dL (70-110)
[2025-01-16 01:08] LABS: Glucose,Whole Blood 120 mg/dL (70-110)
[2025-01-16 02:13] LABS: Glucose,Whole Blood 129 mg/dL (70-110)
[2025-01-16] MEDS: DEXTROSE 5% IN WATER 100 ML with AMIODARONE 150 MG IV PRN (03:07)
[2025-01-16 03:28] LABS: Glucose,Whole Blood 150 mg/dL (70-110)
[2025-01-16 03:56] LABS: Basophils # (A) 0.02 10*3/uL (0.00-0.10); Basophils % (A) 0.2 %; Eosinophils # (A) 0.01 10*3/uL (0.04-0.35); Eosinophils % (A) 0.1 %; HGB 8.6 g/dL (13.0-17.0); Lymphocytes # (A) 0.83 10*3/uL (0.90-5.00); Lymphocytes % (A) 7.8 %; MCHC 33.1 g/dL (32.0-37.0); MCV 81.8 fL (80.0-97.0); Mean Platelet Volume 11.7 fL (9.5-12.2); Monocytes # (A) 0.78 10*3/uL (0.20-1.00); Monocytes % (A) 7.3 %; Neutrophils # (A) 8.95 10*3/uL (1.80-7.70); Neutrophils % (A) 84.1 %; Platelet Count 119 10*3/uL (140-440); RBC 3.18 10*6/uL (4.40-5.60); RDW 14.6 % (11.5-14.5); WBC 10.64 10*3/uL (4.50-10.00)
[2025-01-16 04:06] LABS: Ionized Calcium 4.7 mg/dL (4.5-5.3)
[2025-01-16 04:13] LABS: ALT 14 U/L (4-49); AST 56 U/L (17-59); African American GFR (CKD) >90 (>60 ml/min/1.73 sqM); Albumin 2.9 g/dL (3.5-5.0); Alkaline Phosphatase 50 U/L (38-126); Anion Gap 7 mmol/L; Blood Urea Nitrogen 15 mg/dL (9-20); Calcium 8.5 mg/dL (8.4-10.2); Carbon Dioxide 25 mmol/L (22-30); Chloride 100 mmol/L (98-107); Glucose 133 mg/dL (74-99); Non-African American GFR(CKD) 82 (>60 ml/min/1.73 sqM); Potassium 4.3 mmol/L (3.5-5.1); Sodium 132 mmol/L (137-145); Total Bilirubin 0.9 mg/dL (0.2-1.3); Total Protein 4.8 g/dL (6.3-8.2)
[2025-01-16 04:57] LABS: Glucose,Whole Blood 140 mg/dL (70-110)
[2025-01-16] MEDS: MAGNESIUM SULFATE-D5W PMX 1 GM in DEXTROSE/WATER 1 100ML.BAG IVPB ONE (05:03)
[2025-01-16 06:36] LABS: Glucose,Whole Blood 145 mg/dL (70-110)
[2025-01-16] MEDS: AMIODARONE 360 MG in DEXTROSE 5% IN WATER 200 ML IV PRN (06:38)
[2025-01-16] MEDS: PANTOPRAZOLE 40 MG TABLET PO SCH (06:57)
[2025-01-16 08:02] LABS: Glucose,Whole Blood 109 mg/dL (70-110)
--- NOTE | 2025-01-16 08:16 | XR ---
EXAMINATION TYPE: XR chest 1V portable DATE OF EXAM: 01/16/2025 5:46 AM COMPARISON: Chest radiographs from 01/15/2025 TECHNIQUE: XR chest 1V portable Portable AP radiograph of the chest. CLINICAL INDICATION:Male, 59 years old with history of Post Operative Cardiac Surgery; FINDINGS: Lungs/Pleura: There is no evidence of pleural effusion, focal consolidation, or pneumothorax. Pulmonary vascularity: Unremarkable. Heart/mediastinum: Cardiomediastinal silhouette is enlarged. Left atrial appendage occlusion devices present. Musculoskeletal: No acute osseous pathology. Midline sternotomy wires are noted. Other findings: None Lines/Tubes: There are 2 mediastinal drainage catheters identified in stable position. Interval removal right IJ Wilber-Brady catheter with sheath in place. Possible right thoracotomy tube in the lung base. IMPRESSION: Post operative cardiac surgery changes with support lines and tubes as described above. [facility], , 01/16/2025 8:13 AM
[2025-01-16] MEDS: methocarbamoL 750 MG TAB PO PRN (08:55)
[2025-01-16] MEDS: bisacodyL 10 MG SUPP RECTAL PRN (08:57)
[2025-01-16 09:22] LABS: Glucose,Whole Blood 146 mg/dL (70-110)
[2025-01-16] MEDS: METOPROLOL TARTRATE 25 MG TAB PO SCH (09:31)
[2025-01-16] MEDS: FUROSEMIDE 10 MG/ML 4 ML VIAL IV STA (09:32)
--- NOTE | 2025-01-16 10:11 | P.PN ---
Subjective Progress Note Date: 01/16/25 Principal diagnosis: Bicuspid aortic valve with severe regurgitation and moderate stenosis, ascending aortic aneurysm at 4.5 cm stable over 5 years, and preserved left ventricular function. Past medical history significant for factor V Leiden disorder on Eliquis as an outpatient, history of 2 deep vein thrombosis episodes to his right lower extremity, 1 after an ACL repair and another 1 spontaneous, hypertension, hyperlipidemia, exercise-induced asthma, osteoarthritis and is a lifetime non-smoker. POD #2 aortic valve replacement using a 27 mm Inspiris pericardial bioprosth esis, supra coronary ascending aortic replacement using a 32 mm Gelweave graft, exclusion left atrial appendage using a 40 mm Atriclip, intraoperative transesophageal echocardiogram and epiaortic scanning. Postoperative acute blood loss anemia, expected given hemodilution and cardiopulmonary bypass. Postoperative paroxysmal atrial fibrillation, a known common occurrence after cardiac surgery. The patient was seen and examined in follow-up today January 16, 2025 at his bedside in the intensive care unit. He is currently sitting up to the bedside chair, is awake, alert, oriented x 3 and is in no acute apparent distress. He denies any complaints of shortness of breath at this time, although is complaining of some surgical type pain from his chest tubes. Currently rates his pain 5-6 out of 10 on the pain scale. Bedside telemetry is showing atrial fibrillation heart rate 96 bpm. He remains on amiodarone drip per protocol and did receive amiodarone 150 mg bolus x 4 throughout the night. Oxygen saturations are 94% on 2 L nasal cannula and he is achieving 1500 mL on his incentive spirometry with encouragement. Mediastinal and right pleural chest tubes remain in place to low continuous wall suction -20 cm H2O. No airleak is present. Mediastinal chest tube drained 70 mL output in the last 8 hours and 220 mL output in the last 24 hours. Right pleural chest tube drained 10 mL output in the last 8 hours and 20 mL output in the last 24 hours. Right IJ cordis in place with continuous CVP monitoring, current CVP pressure 5 mmHg. Laboratory and chest x-ray results reviewed. The patient has been up ambulating in the intensive care unit hallway with standby assistance nursing and therapy staff tolerating well. Objective - Vital Signs Vital signs: Vital Signs Temp 97.6 F 01/16/25 08:00 Pulse 116 H 01/16/25 09:00 Resp 48 H 01/16/25 09:00 BP 115/88 01/16/25 09:00 Pulse Ox 94 L 01/16/25 08:00 FiO2 50 01/14/25 18:00 Intake & Output 01/15/25 01/16/25 01/16/25 18:59 06:59 18:59 Intake Total 1656.580 582.224 144.649 Output Total 390 400 105 Balance 1266.580 182.224 39.649 Weight 78.6 kg 85.4 kg Intake: IV 935 552 138 0.9ns for pressure bag 75 72 18 Albumin Human 5% 250 ml 250 In Empty Bag 1 bag @ 250 mls/hr IVPB Q1HR PRN Rx#: [id number] Magnesium Sulfate-D5w Pmx 100 1 gm In Dextrose/Water 1 100ml.bag @ 100 mls/hr IVPB ONCE ONE Rx#: [id number] Sodium Chloride 0.9% 1, 410 480 120 000 ml @ 20 mls/hr IV . Q24H [facility] Rx#:[id number] ceFAZolin 2 gm In 100 Dextrose 5% in Water 50 ml @ 100 mls/hr IVPB Q8HR [facility] Rx#:[id number] Intake, IV Titration 21.580 30.224 6.649 Amount Insulin Regular 100 unit 21.580 30.224 6.649 In Sodium Chloride 0.9% 100 ml @ Per Protocol IV .Q0M [facility] Rx#:[id number] Oral 700 Output: Chest Tube Drainage 140 80 30 Chest Tube Mediastinal 120 70 20 Right 20 10 10 Urine 250 320 75 Other: Voiding Method Indwelling Catheter Indwelling Catheter ABP, PAP, CO, CI - Last Documented Arterial Blood Pressure 110/76 Pulmonary Artery Pressure 14/4 Cardiac Output 5.5 Cardiac Index 3.1 - Exam CONSTITUTIONAL: Sitting up to the bedside chair in the intensive care unit, appears comfortable, cooperative, no apparent acute distress. HEENT: Neck is supple, no JVD, no lymphadenopathy. Right IJ Cordis in place and functioning. RESPIRATORY: Lungs sounds essentially clear throughout, diminished to his bilateral bases. Respirations are symmetrical and nonlabored. Currently on room air with oxygen saturations 94%. Able to achieve 1500 mL on his incentive spirometry. Strong cough. CARDIOVASCULAR: Regular rhythm and rate. S1 and S2 present, negative for S3, gallop or murmur. Sternum is stable. Bedside telemetry showing atrial fibrillation heart rate 96 bpm. Palpable peripheral pulses bilaterally. No calf pain or tenderness noted. Heart hugger in place with patient demonstrating appropriate use. Knee-high ZUNILDA hose and sequential compression devices in place to his bilateral lower extremities. GASTROINTESTINAL: Abdomen soft, nontender, nondistended. Active bowel sounds present 4 quadrants. Tolerating diet. Passing flatus. No guarding or rigidity. GENITOURINARY: Delgado present draining clear, yellow urine. Urine output 240 mL in the last 8 hours. INTEGUMENTARY: Skin is warm and dry with no evidence of clubbing or cyanosis. Midline sternal incision clean dry and well approximated, covered with dry intact dressing. NEUROLOGIC: Cranial nerves II through XII intact. No focal deficits. MUSKULOSKELETAL: Able to move all extremities, strength equal bilaterally, generalized weakness. PSYCHIATRIC: Alert and oriented to person place and time, appropriate affect, intact judgment and insight. INVASIVE LINES AND TUBES: Atrial and ventricular epicardial pacemaker wires are in place and connected to backup bedside pacemaker generator on a VVI at 50 bpm. Mediastinal and right pleural chest tubes remain in place to low continuous wall suction -20 cm H2O. No airleak is present. Mediastinal chest tubes draining 70 mL output of thin serosanguineous drainage in the last 8 hours and 220 mL output in the last 24 hours. Right pleural chest tube remains in place draining 10 mL of thin serosanguineous drainage in the last 8 hours and 20 mL in the last 24 hours. Right internal jugular Cordis, right brachial arterial line present. CVP 5 mmHg. - Labs CBC & Chem 7: 01/16/25 03:30 01/16/25 03:30 Labs: Abnormal Lab Results - Last 24 Hours (Table) 01/15/25 01/15/25 01/15/25 Range/Units 10:03 10:56 12:12 WBC (4.50-10.00) 10*3/uL RBC (4.40-5.60) 10*6/uL Hgb (13.0-17.0) g/dL Hct (39.6-50.0) % Plt Count (140-440) 10*3/uL Immature Gran # (0.00-0.04) 10*3/uL Neutrophils # (1.80-7.70) 10*3/uL Lymphocytes # (0.90-5.00) 10*3/uL Eosinophils # (0.04-0.35) 10*3/uL Sodium (137-145) mmol/L Glucose (74-99) mg/dL POC Glucose (mg/dL) 147 H 113 H 127 H (70-110) mg/dL Total Protein (6.3-8.2) g/dL Albumin (3.5-5.0) g/dL 01/15/25 01/15/25 01/15/25 Range/Units 13:32 14:51 19:59 WBC (4.50-10.00) 10*3/uL RBC (4.40-5.60) 10*6/uL Hgb (13.0-17.0) g/dL Hct (39.6-50.0) % Plt Count (140-440) 10*3/uL Immature Gran # (0.00-0.04) 10*3/uL Neutrophils # (1.80-7.70) 10*3/uL Lymphocytes # (0.90-5.00) 10*3/uL Eosinophils # (0.04-0.35) 10*3/uL Sodium (137-145) mmol/L Glucose (74-99) mg/dL POC Glucose (mg/dL) 149 H 135 H 152 H (70-110) mg/dL Total Protein (6.3-8.2) g/dL Albumin (3.5-5.0) g/dL 01/15/25 01/15/25 01/16/25 Range/Units 21:22 22:29 01:06 WBC (4.50-10.00) 10*3/uL RBC (4.40-5.60) 10*6/uL Hgb (13.0-17.0) g/dL Hct (39.6-50.0) % Plt Count (140-440) 10*3/uL Immature Gran # (0.00-0.04) 10*3/uL Neutrophils # (1.80-7.70) 10*3/uL Lymphocytes # (0.90-5.00) 10*3/uL Eosinophils # (0.04-0.35) 10*3/uL Sodium (137-145) mmol/L Glucose (74-99) mg/dL POC Glucose (mg/dL) 150 H 151 H 120 H (70-110) mg/dL Total Protein (6.3-8.2) g/dL Albumin (3.5-5.0) g/dL 01/16/25 01/16/25 01/16/25 Range/Units 02:12 03:27 03:30 WBC 10.64 H (4.50-10.00) 10*3/uL RBC 3.18 L (4.40-5.60) 10*6/uL Hgb 8.6 L (13.0-17.0) g/dL Hct 26.0 L (39.6-50.0) % Plt Count 119 L (140-440) 10*3/uL Immature Gran # 0.05 H (0.00-0.04) 10*3/uL Neutrophils # 8.95 H (1.80-7.70) 10*3/uL Lymphocytes # 0.83 L (0.90-5.00) 10*3/uL Eosinophils # 0.01 L (0.04-0.35) 10*3/uL Sodium (137-145) mmol/L Glucose (74-99) mg/dL POC Glucose (mg/dL) 129 H 150 H (70-110) mg/dL Total Protein (6.3-8.2) g/dL Albumin (3.5-5.0) g/dL 01/16/25 01/16/25 01/16/25 Range/Units 03:30 04:55 06:34 WBC (4.50-10.00) 10*3/uL RBC (4.40-5.60) 10*6/uL Hgb (13.0-17.0) g/dL Hct (39.6-50.0) % Plt Count (140-440) 10*3/uL Immature Gran # (0.00-0.04) 10*3/uL Neutrophils # (1.80-7.70) 10*3/uL Lymphocytes # (0.90-5.00) 10*3/uL Eosinophils # (0.04-0.35) 10*3/uL Sodium 132 L (137-145) mmol/L Glucose 133 H (74-99) mg/dL POC Glucose (mg/dL) 140 H 145 H (70-110) mg/dL Total Protein 4.8 L (6.3-8.2) g/dL Albumin 2.9 L (3.5-5.0) g/dL 01/16/25 Range/Units 09:20 WBC (4.50-10.00) 10*3/uL RBC (4.40-5.60) 10*6/uL Hgb (13.0-17.0) g/dL Hct (39.6-50.0) % Plt Count (140-440) 10*3/uL Immature Gran # (0.00-0.04) 10*3/uL Neutrophils # (1.80-7.70) 10*3/uL Lymphocytes # (0.90-5.00) 10*3/uL Eosinophils # (0.04-0.35) 10*3/uL Sodium (137-145) mmol/L Glucose (74-99) mg/dL POC Glucose (mg/dL) 146 H (70-110) mg/dL Total Protein (6.3-8.2) g/dL Albumin (3.5-5.0) g/dL Assessment and Plan Assessment: Bicuspid aortic valve with severe regurgitation and moderate stenosis, status post aortic valve replacement using a 27 mm Inspiris pericardial bioprosthesis Ascending aortic aneurysm at 4.5 cm stable over 5 years, status post supra coronary ascending aortic replacement using a 32 mm Gelweave graft Postoperative paroxysmal atrial fibrillation, a known, recurrence after cardiac surgery Factor V Leiden disorder, and Eliquis as an outpatient History of 2 previous deep vein thrombosis to his right lower extremity, 1 after ACL repair and another 1 spontaneous Hypertension Hyperlipidemia, triglycerides 295, cholesterol 250, LDL 132 Exercise-induced asthma, preoperative FEV1 2.64, 75% of predicted value Osteoarthritis Lifetime non-smoker Plan: Continue to maximize medical therapy with aspirin, statin, Plavix, and beta- chaparro. Will increase metoprolol to tartrate to 25 mg p.o. twice daily with hold parameters. Keep atrial and ventricular epicardial pacemaker wires in place and connected to bedside backup pacemaker generator on a VVI at 50 bpm. Encourage incentive spirometry use 10 times every hour while awake. Bronchodilators per pulmonology. Will monitor daily labs and chest x-rays. Electrolyte replacement per protocol. Increase activity, ambulate as tolerated. PT/OT/cardiac rehab following. GI/DVT prophylaxis. Pain control per current medication regimen. Insulin management per internal medicine. Preoperative hemoglobin A1c 5.8%. Patient needs to remain on continuous IV insulin for 48 hours, then may transition to subcutaneous per protocol. Continue Cordis to continuous CVP monitoring, and continue right brachial arterial line. We remove his chest tubes today. Remove Delgado catheter, continue to monitor and record strict accurate intake and output. May bladder scan every 6 hours and as needed postvoid residuals. If greater than 300 mL of urine may straight cath. Lasix 40 mg IV x 1 now. Calcium gluconate 1 g IV piggyback x 1 now. Dulcolax suppository x 1 now. More recommendations to follow based on patient's clinical course Time with Patient: Greater than 30
[2025-01-16 10:17] LABS: % Iron Saturation 3.91 (15.00-50.00); Ferritin 56.5 ng/mL (22.0-322.0); Iron 9 UG/DL (65-175); Total Iron Binding Capacity 230 UG/DL (228-460)
[2025-01-16] MEDS: CALCIUM GLUCONATE IN NACL 1 GM in SALINE 1 100ML.BAG IVPB ONE (11:17)
[2025-01-16 11:31] LABS: Glucose,Whole Blood 157 mg/dL (70-110)
[2025-01-16] MEDS: ACETAMINOPHEN TAB 325 MG TAB PO PRN (11:48)
--- NOTE | 2025-01-16 12:17 | P.PN ---
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 He also has a known history of ascending aortic aneurysm measuring 4.5 cm and a bicuspid aortic valve with severe regurgitation and mild stenosis. He was brought in today electively for surgery. He did undergo aortic valve replacement with a 27 mm Inspiris pericardial bio prostatic, ascending aortic replacement using a Gelweave graft, exclusion of left atrial appendage. Postoperative day #0. He is seen postoperatively in the intensive care unit. He remains intubated on the mechanical ventilator and assist-control mode at a rate of 16, tidal volume 500, FiO2 100% and a PEEP of 5. Arterial blood gases reveal a PaO2 of 381, PCO2 of 40 and a pH of 7.41. He is currently sedated on propofol at 50 mcg/kg/min. Normal saline at 50 mL/h. Cardiac output 5.4. Cardiac index 3.1. PA pressures 38/18, CVP 14. He is currently a paced V sensed with pacer wires in place. X-ray tracheal tube at 1.8 cm above the fernie. 2 mediastinal drainage catheters, 1 right thoracotomy tube. Right IJ Columbia-Brady catheter in place. White count 8.5. Hemoglobin 9.7. Platelets 122. Sodium 137. Potassium 4.5. Bicarb 25. BUN 11. Creatinine 0.91. Glucose 127. He is initiated on DuoNeb inhalations. Heparin for DVT prophylaxis. The patient is seen today January 15, 2025 in follow-up in the intensive care unit. Postoperative day #1. He is currently sitting up in a chair. Awake and alert in no acute distress. Maintaining O2 saturations in the 90s on 2 L/min per nasal cannula. He is continued on insulin drip at 3.5 units an hour. Normal saline at 50 mL/h. Chest x-ray reveals postoperative cardiac surgery changes. 2 mediastinal chest tubes in place, right thoracotomy chest tube in place to Pleur-evac's and wall suction. Right IJ cordis catheter in place. Pacer wires in place with backup pacing in VVI mode at 50 bpm. White count 11.1. Hemoglobin 10.0. Platelets 151. Sodium 135. Potassium 4.0. Bicarb 25. BUN 12. Creatinine 0.85. Glucose 113. He remains on bronchodilators. Heparin for DVT prophylaxis. The patient is seen today January 16, 2025 in follow-up in the intensive care unit. Postoperative day #2. He is awake and alert in no acute distress. He is currently resting in bed. Awake and alert in no acute distress. Maintaining O2 saturations in the 90s on 2 L/min per nasal cannula. He is on a amiodarone drip at 1 mg/min. Normal saline at 40 mL/h. He is afebrile. Hemodynamically stable. Chest x-ray reveals postoperative surgical changes. 2 mediastinal chest tubes in place. Right thoracotomy tube in place. Right IJ cordis remains. White count 10.6. Hemoglobin 8.6. Platelets 119. Sodium 132. Potassium 4.3. Bicarb 25. BUN 15. Creatinine 1.0. He is working well with the incentive spirometer. Remains on bronchodilators. Heparin for DVT prophylaxis. Objective - Vital Signs Vital signs: Vital Signs Temp 97.6 F 01/16/25 08:00 Pulse 79 01/16/25 12:06 Resp 21 01/16/25 11:00 BP 106/95 01/16/25 10:30 Pulse Ox 97 01/16/25 12:03 FiO2 50 01/14/25 18:00 Intake & Output 01/15/25 01/16/25 01/16/25 18:59 06:59 18:59 Intake Total 1656.580 582.224 216.649 Output Total 390 400 105 Balance 1266.580 182.224 111.649 Weight 78.6 kg 85.4 kg Intake: IV 935 552 210 0.9ns for pressure bag 75 72 30 Albumin Human 5% 250 ml 250 In Empty Bag 1 bag @ 250 mls/hr IVPB Q1HR PRN Rx#: [id number] Magnesium Sulfate-D5w Pmx 100 1 gm In Dextrose/Water 1 100ml.bag @ 100 mls/hr IVPB ONCE ONE Rx#: [id number] Sodium Chloride 0.9% 1, 410 480 180 000 ml @ 20 mls/hr IV . Q24H [facility] Rx#:[id number] ceFAZolin 2 gm In 100 Dextrose 5% in Water 50 ml @ 100 mls/hr IVPB Q8HR [facility] Rx#:[id number] Intake, IV Titration 21.580 30.224 6.649 Amount Insulin Regular 100 unit 21.580 30.224 6.649 In Sodium Chloride 0.9% 100 ml @ Per Protocol IV .Q0M [facility] Rx#:[id number] Oral 700 Output: Chest Tube Drainage 140 80 30 Chest Tube Mediastinal 120 70 20 Right 20 10 10 Urine 250 320 75 Other: Voiding Method Indwelling Catheter Indwelling Catheter ABP, PAP, CO, CI - Last Documented Arterial Blood Pressure 121/88 Pulmonary Artery Pressure 14/4 Cardiac Output 5.5 Cardiac Index 3.1 - Exam GENERAL EXAM: Alert, pleasant, 59-year-old male, on 2 L nasal cannula, resting in bed, comfortable in no apparent distress. HEAD: Normocephalic. EYES: Normal reaction of pupils, equal size. NOSE: Clear with pink turbinates. THROAT: No erythema or exudates. NECK: No masses, no JVD. Right IJ cordis catheter in place. CHEST: Heart hugger in place. Sternal dressing dry and intact. Mediastinal and right pleural chest tubes in place. Pacer wires in place. LUNGS: Equal air entry with no crackles, wheeze, rhonchi or dullness. CVS: S1 and S2 normal with no audible murmur, regular rhythm. ABDOMEN: No hepatosplenomegaly, normal bowel sounds, no guarding or rigidity. SPINE: No scoliosis or deformity SKIN: No rashes CENTRAL NERVOUS SYSTEM: No focal deficits, tone is normal in all 4 extremities. EXTREMITIES: ZUNILDA hose and SCDs in place. There is no peripheral edema. Peripheral pulses are intact. - Labs CBC & Chem 7: 01/16/25 03:30 01/16/25 03:30 Labs: Abnormal Lab Results - Last 24 Hours (Table) 01/15/25 01/15/25 01/15/25 Range/Units 12:12 13:32 14:51 WBC (4.50-10.00) 10*3/uL RBC (4.40-5.60) 10*6/uL Hgb (13.0-17.0) g/dL Hct (39.6-50.0) % Plt Count (140-440) 10*3/uL Immature Gran # (0.00-0.04) 10*3/uL Neutrophils # (1.80-7.70) 10*3/uL Lymphocytes # (0.90-5.00) 10*3/uL Eosinophils # (0.04-0.35) 10*3/uL Sodium (137-145) mmol/L Glucose (74-99) mg/dL POC Glucose (mg/dL) 127 H 149 H 135 H (70-110) mg/dL Iron (65-175) UG/DL % Saturation (15.00-50.00) Transferrin (204.0-354.0) mg/dL Total Protein (6.3-8.2) g/dL Albumin (3.5-5.0) g/dL 01/15/25 01/15/25 01/15/25 Range/Units 19:59 21:22 22:29 WBC (4.50-10.00) 10*3/uL RBC (4.40-5.60) 10*6/uL Hgb (13.0-17.0) g/dL Hct (39.6-50.0) % Plt Count (140-440) 10*3/uL Immature Gran # (0.00-0.04) 10*3/uL Neutrophils # (1.80-7.70) 10*3/uL Lymphocytes # (0.90-5.00) 10*3/uL Eosinophils # (0.04-0.35) 10*3/uL Sodium (137-145) mmol/L Glucose (74-99) mg/dL POC Glucose (mg/dL) 152 H 150 H 151 H (70-110) mg/dL Iron (65-175) UG/DL % Saturation (15.00-50.00) Transferrin (204.0-354.0) mg/dL Total Protein (6.3-8.2) g/dL Albumin (3.5-5.0) g/dL 01/16/25 01/16/25 01/16/25 Range/Units 01:06 02:12 03:27 WBC (4.50-10.00) 10*3/uL RBC (4.40-5.60) 10*6/uL Hgb (13.0-17.0) g/dL Hct (39.6-50.0) % Plt Count (140-440) 10*3/uL Immature Gran # (0.00-0.04) 10*3/uL Neutrophils # (1.80-7.70) 10*3/uL Lymphocytes # (0.90-5.00) 10*3/uL Eosinophils # (0.04-0.35) 10*3/uL Sodium (137-145) mmol/L Glucose (74-99) mg/dL POC Glucose (mg/dL) 120 H 129 H 150 H (70-110) mg/dL Iron (65-175) UG/DL % Saturation (15.00-50.00) Transferrin (204.0-354.0) mg/dL Total Protein (6.3-8.2) g/dL Albumin (3.5-5.0) g/dL 01/16/25 01/16/25 01/16/25 Range/Units 03:30 03:30 04:55 WBC 10.64 H (4.50-10.00) 10*3/uL RBC 3.18 L (4.40-5.60) 10*6/uL Hgb 8.6 L (13.0-17.0) g/dL Hct 26.0 L (39.6-50.0) % Plt Count 119 L (140-440) 10*3/uL Immature Gran # 0.05 H (0.00-0.04) 10*3/uL Neutrophils # 8.95 H (1.80-7.70) 10*3/uL Lymphocytes # 0.83 L (0.90-5.00) 10*3/uL Eosinophils # 0.01 L (0.04-0.35) 10*3/uL Sodium 132 L (137-145) mmol/L Glucose 133 H (74-99) mg/dL POC Glucose (mg/dL) 140 H (70-110) mg/dL Iron 9 L (65-175) UG/DL % Saturation 3.91 L (15.00-50.00) Transferrin 164.0 L (204.0-354.0) mg/dL Total Protein 4.8 L (6.3-8.2) g/dL Albumin 2.9 L (3.5-5.0) g/dL 01/16/25 01/16/25 01/16/25 Range/Units 06:34 09:20 11:19 WBC (4.50-10.00) 10*3/uL RBC (4.40-5.60) 10*6/uL Hgb (13.0-17.0) g/dL Hct (39.6-50.0) % Plt Count (140-440) 10*3/uL Immature Gran # (0.00-0.04) 10*3/uL Neutrophils # (1.80-7.70) 10*3/uL Lymphocytes # (0.90-5.00) 10*3/uL Eosinophils # (0.04-0.35) 10*3/uL Sodium (137-145) mmol/L Glucose (74-99) mg/dL POC Glucose (mg/dL) 145 H 146 H 157 H (70-110) mg/dL Iron (65-175) UG/DL % Saturation (15.00-50.00) Transferrin (204.0-354.0) mg/dL Total Protein (6.3-8.2) g/dL Albumin (3.5-5.0) g/dL Assessment and Plan Assessment: Bicuspid aortic valve with severe regurgitation and moderate stenosis, ascending aortic aneurysm at 4.5 cm. Status post aortic valve replacement utilizing a 27 mm Inspiris pericardial bioprosthetic. Ascending aortic replacement utilizing a 32 mm Gelweave graft. Exclusion of left atrial appendage. Postoperative day #2 Mechanical ventilator management, expected outcome of surgery, extubated and on 2 L nasal cannula History of factor V Leiden deficiency Hyperlipidemia Plan: The patient was seen and evaluated Chest x-ray, labs and medications reviewed Working well with the incentive spirometer Titrate down the FiO2 as tolerated Continue bronchodilators Heparin for DVT prophylaxis Increase his activity as tolerated We will continue to follow I have personally seen and examined the patient, performed the documentation and the assessment and plan as written. Number of minutes spent on the visit: 10 Dictation was produced using [employer] software. Please excuse any grammatical, word or spelling errors.
[2025-01-16] MEDS ORDERED: DEXTROSE 50% SYRINGE 50 ML IVP PRN ×2 (12:20)
[2025-01-16 12:48] LABS: Glucose,Whole Blood 150 mg/dL (70-110)
[2025-01-16] MEDS: AMIODARONE 450 MG in DEXTROSE 5% IN WATER 250 ML IV PRN (12:59)
[2025-01-16] MEDS: INSULIN LISPRO (HumaLOG) 100 UNIT/ML 10 mL VL SQ SCH (13:28)
--- NOTE | 2025-01-16 14:43 | P.PN ---
Progress Note - Text Progress Note Date: 01/16/25 - Chief Complaint Arctic valve replacement - History of Present Illness 59-year-old patient follows with Dr. Ozzy Carbone. Chronic medical conditions include asthma, factor V Leiden mutation, prior history of DVT, hyperlipidemia osteoarthritis, exercise-induced asthma, migraines, history of kidney stones. Patient in today has undergone aortic valve replacement., With a bioprosthesis. Ascending aorta replacement with a graft. Postprocedure in the ICU. Intubated. Currently weaning on CPAP. Current drips include Precedex and insulin. Patient has 2 mediastinal and 1 right pleural chest tube. Currently lethargic not able to give a history. January 15: Patient seen this morning in the ICU. Family present. Up in a chair. Clear liquids. Some pain with breathing. Chest tubes in place-some serosanguineous output. Delgado catheter in place. On insulin drip. Sinus rhythm with some ectopics. Using incentive spirometry. January 16: ICU. Chest tubes have been taken out. Delgado discontinued earlier. Eating fair. Had gone into A-fib yesterday. On IV amiodarone. Will DC insulin drip placed on Accu-Cheks. Breathing better. Eating about 25%. Did walk in the hallway with therapy. Active Medications Acetaminophen (Acetaminophen Tab 325 Mg Tab) 650 mg PO Q4HR PRN PRN Reason: Fever And/ Or Mild Pain (1-3) Last Admin: 01/16/25 11:48 Dose: 650 mg Albuterol/Ipratropium (Ipratropium-Albuterol 3 Ml Neb) 3 ml INHALATION RT-Q2H PRN PRN Reason: Shortness Of Breath Or Wheezing Albuterol/Ipratropium (Ipratropium-Albuterol 3 Ml Neb) 3 ml INHALATION RT-QID [facility] Last Admin: 01/16/25 11:57 Dose: 3 ml Aspirin (Aspirin 325 Mg Tab) 325 mg PO DAILY [facility] Last Admin: 01/16/25 09:25 Dose: 325 mg Atorvastatin Calcium (Atorvastatin 40 Mg Tab) 40 mg PO DAILY [facility] Last Admin: 01/16/25 09:26 Dose: 40 mg Benzocaine/Menthol (Benzocaine/Menthol Lozeng 1 Each Lozenge) 1 each MUCOUS MEM Q2H PRN PRN Reason: Sore Throat Bisacodyl (Bisacodyl 10 Mg Supp) 10 mg RECTAL DAILY PRN PRN Reason: Constipation Last Admin: 01/16/25 08:57 Dose: 10 mg Clopidogrel Bisulfate (Clopidogrel 75 Mg Tab) 75 mg PO DAILY [facility] Last Admin: 01/16/25 09:25 Dose: 75 mg Dextrose/Water (Dextrose 50% Syringe 50 Ml) 25 ml IVP PER PROTOCOL PRN; Protocol PRN Reason: Hypoglycemia Dextrose/Water (Dextrose 50% Syringe 50 Ml) 50 ml IVP PER PROTOCOL PRN; Protocol PRN Reason: Hypoglycemia Heparin Sodium (Porcine) (Heparin Sodium,Porcine 5,000 Unit/Ml 1 Ml Vial) 5,000 unit SQ Q8HR [facility] Last Admin: 01/16/25 08:22 Dose: 5,000 unit Hydralazine HCl (Hydralazine Hcl 20 Mg/Ml 1 Ml Vial) 10 mg IVP Q1H PRN PRN Reason: Blood Pressure - High Amiodarone HCl 150 mg/ (Dextrose/Water) 103 mls @ 618 mls/hr IV .Q10M PRN PRN Reason: A.FIB/FLUTTER Last Admin: 01/16/25 05:35 Dose: 618 mls/hr Amiodarone HCl 360 mg/ (Dextrose/Water) 200 mls @ 33.333 mls/hr IV .Q6H PRN; Protocol PRN Reason: Cardiac Arrhythmia Last Admin: 01/16/25 06:38 Dose: 1 mg/min, 33.333 mls/hr Amiodarone HCl 450 mg/ (Dextrose/Water) 250 mls @ 16.667 mls/hr IV .Q15H PRN; Protocol PRN Reason: Cardiac Arrhythmia Last Admin: 01/16/25 12:59 Dose: 0.5 mg/min, 16.667 mls/hr Calcium Gluconate/Sodium (Chloride 2 gm/ IV Solution) 100 mls @ 100 mls/hr IVPB ONCE PRN PRN Reason: Ionized Calcium less than 4.4 Stop: 01/18/25 13:56 Sodium Chloride (Saline 0.9%) 1,000 mls @ 20 mls/hr IV .Q24H [facility] Last Admin: 01/15/25 16:47 Dose: 20 mls/hr Insulin Human Lispro (Insulin Lispro (Humalog) 100 Unit/Ml 10 Ml Vl) 0 unit SQ ACHS [facility]; Protocol Last Admin: 01/16/25 13:28 Dose: Not Given Ketorolac Tromethamine (Ketorolac 15 Mg/Ml 1 Ml Vial) 15 mg IVP Q6HR [facility] Stop: 01/20/25 09:55 Last Admin: 01/16/25 11:46 Dose: 15 mg Magnesium Hydroxide (Magnesium Hydroxide 2,400 Mg/30 Ml Cup) 2,400 mg PO BID PRN PRN Reason: Constipation Methocarbamol (Methocarbamol 750 Mg Tab) 750 mg PO QID PRN PRN Reason: Muscle Spasm Last Admin: 01/16/25 08:55 Dose: 750 mg Metoclopramide HCl (Metoclopramide 5 Mg/Ml 2 Ml Vial) 10 mg IVP Q4H PRN PRN Reason: Nausea And Vomiting Last Admin: 01/15/25 06:18 Dose: 10 mg Metoprolol Tartrate (Metoprolol Tartrate 25 Mg Tab) 25 mg PO BID [facility] Last Admin: 01/16/25 09:31 Dose: 25 mg Miscellaneous Information (Potassium Replacement Protocol 1 Each Misc) 1 each MISCELLANE DAILY PRN; Protocol PRN Reason: Per Protocol Miscellaneous Information (Magnesium Replacement Protocol 1 Each Misc) 1 each MISCELLANE DAILY PRN; Protocol PRN Reason: Per Protocol Ondansetron HCl (Ondansetron 4 Mg/2 Ml Vial) 4 mg IVP Q6HR PRN PRN Reason: Nausea And Vomiting Last Admin: 01/14/25 21:53 Dose: 4 mg Pantoprazole Sodium (Pantoprazole 40 Mg Tablet) 40 mg PO AC-BRKFST [facility] Last Admin: 01/16/25 06:57 Dose: 40 mg Senna/Docusate Sodium (Sennosides-Docusate Sodium 1 Each Tab) 2 each PO HS [facility] Last Admin: 01/15/25 21:17 Dose: 2 each Sodium Chloride (Sodium Chloride 0.9% Flush 10 Ml Syringe) 10 ml IV BID [facility] Last Admin: 01/16/25 09:28 Dose: 10 ml Social history: Non-smoker. Alcohol rarely. Physical examination: VITAL SIGNS: 75, 22, 111 x 70, 95% 2 L GENERAL: Comfortable. Chest tubes are out EYES: Pupils equal. Conjunctiva wicho l. HEENT: [External appearance of nose and ears normal, endotracheal tube NECK: JVD unable to assess; masses not palpable. HEART: First and second heart sounds are normal; no edema. LUNGS: Respiratory rate increased; decreased breath sound. ABDOMEN: Soft, nontender, liver spleen not palpable, no masses palpable. Delgado catheter-discontinued PSYCH: AO x 3, mood affect normal MUSCULOSKELETAL:No Clubbing/cyanosis;muscles-grossly intact INVESTIGATIONS, reviewed in the clinical context: January 16: White count 10.6 hemoglobin 8.6 platelets 119 potassium 4.3 creatinine 1.0. Magnesium 1.9 iron 9 TIBC 230% saturation 3.9 transferrin 164 ferritin 56.5 B12 264 folate 0.8 January 15: White count 1.1 hemoglobin 10 platelets 151 potassium 4 creatinine 0.85 January 14, 2025: White count 8.5 hemoglobin 9.7 platelets 122 sodium 137 potassium 4.5 BUN 11 creatinine 0.91 albumin 2.8 Previous labs: January 07, 2025: White count 4.2 hemoglobin 11.5 platelets 242 December 09, 2024 LDL 132 Assessment plan: - Bicuspid aortic valve with severe regurgitation and moderate stenosis ascending aortic aneurysm at 4.5 cm. Stable over 5 years.: Followed by aortic valve replacement with pericardial bioprosthesis and ascending aorta replacement with a graft by Dr. Corona - 2 mediastinal chest tubes and 1 right pleural chest tube.: Removed -IV insulin drip. Being discontinued -Status post postop ventilator assist, patient extubated - Hypoalbuminemia, postop. Acute phase reactant. Received IV albumin - New onset atrial fibrillation Patient on IV amiodarone. Lopressor 25 mg twice daily Anticoagulation decision as per cardiothoracic surgery - Hyperlipidemia Statins -Acute postprocedure blood loss anemia expected from surgery. With iron deficiency picture B12 folate normal IV iron - Essential hypertension Currently blood pressure on the softer side. Follow closely - Chronic DVT Eliquis currently held - Primary osteoarthritis Pain medication as needed - Factor V Leiden mutation On Eliquis Patient on aspirin, Plavix. Currently off Eliquis per surgical team. Chest tubes in place. Thank you Dr. Corona Past Medical History Past Medical History: Asthma, Blood Disorder, Deep Vein Thrombosis (DVT), Hyperlipidemia, Osteoarthritis (OA) Additional Past Medical History / Comment(s): EXERCISE INDUCED ASTHMA, MIGRAINES, TORN LEFT MENISCUS, FACTOR 5 LEIDEN, VARICOSE VEIN RIGHT LEG, HX KIDNEY STONES. History of Any Multi-Drug Resistant Organisms: None Reported Past Surgical History: Heart Catheterization, Hernia Repair, Orthopedic Surgery Additional Past Surgical History / Comment(s): HERNIA REPAIR X2, RIGHT MENISCUS REPAIR, LEFT KNEE SURGERY, RIGHT ACL REPAIR, PROCEDURE FOR KIDNEY STONE, SONY. Past Anesthesia/Blood Transfusion Reactions: No Reported Reaction Additional Past Anesthesia/Blood Transfusion Reaction / Comm: DIFFICULTY WAKING UP - STATES GROGGY FOR HOURS. Smoking Status: Never smoker
[2025-01-16] MEDS: SODIUM FERRIC GLUCONAT-SUCROSE 125 MG in SODIUM CHLORIDE 0.9% 100 ML IVPB SCH (16:02)
[2025-01-16 17:27] LABS: Glucose,Whole Blood 179 mg/dL (70-110)
[2025-01-16 20:07] LABS: Glucose,Whole Blood 168 mg/dL (70-110)
[2025-01-17 05:48] LABS: Basophils # (A) 0.01 10*3/uL (0.00-0.10); Basophils % (A) 0.1 %; HCT 24.1 % (39.6-50.0); Lymphocytes # (A) 0.65 10*3/uL (0.90-5.00); Lymphocytes % (A) 8.1 %; MCH 26.6 pg (27.0-32.0); MCHC 33.2 g/dL (32.0-37.0); MCV 80.1 fL (80.0-97.0); Mean Platelet Volume 10.6 fL (9.5-12.2); Monocytes # (A) 0.54 10*3/uL (0.20-1.00); Monocytes % (A) 6.7 %; Neutrophils # (A) 6.81 10*3/uL (1.80-7.70); Neutrophils % (A) 84.6 %; Platelet Count 110 10*3/uL (140-440); RBC 3.01 10*6/uL (4.40-5.60); RDW 14.6 % (11.5-14.5); WBC 8.05 10*3/uL (4.50-10.00)
[2025-01-17 06:06] LABS: ALT 17 U/L (4-49); African American GFR (CKD) >90 (>60 ml/min/1.73 sqM); Albumin 2.8 g/dL (3.5-5.0); Anion Gap 6 mmol/L; Blood Urea Nitrogen 18 mg/dL (9-20); Calcium 8.2 mg/dL (8.4-10.2); Carbon Dioxide 22 mmol/L (22-30); Chloride 99 mmol/L (98-107); Glucose 187 mg/dL (74-99); Non-African American GFR(CKD) >90 (>60 ml/min/1.73 sqM); Sodium 127 mmol/L (137-145); Total Bilirubin 0.9 mg/dL (0.2-1.3); Total Protein 4.9 g/dL (6.3-8.2)
[2025-01-17 06:08] LABS: AST 53 U/L (17-59); Magnesium 1.7 mg/dL (1.6-2.3); Potassium 4.1 mmol/L (3.5-5.1)
[2025-01-17 06:09] LABS: Alkaline Phosphatase 47 U/L (38-126)
--- NOTE | 2025-01-17 08:06 | XR ---
EXAMINATION TYPE: XR chest 2V DATE OF EXAM: 01/17/2025 6:41 AM COMPARISON: Multiple radiographs, with the most recent on 01/16/2025 TECHNIQUE: XR chest 2V Frontal and lateral views of the chest. CLINICAL INDICATION:Male, 59 years old with history of post op CABG; FINDINGS: Lungs/Pleura: No focal consolidation or pneumothorax. Trace bilateral pleural effusions. Pulmonary vascularity: Unremarkable. Heart/mediastinum: Cardiomediastinal silhouette is enlarged. Cardiac valvular replacement. Left atri al appendage occlusion devices present. Musculoskeletal: No acute osseous pathology. Midline sternotomy wires are noted. Other findings: None Lines/Tubes: Interval removal of mediastinal drainage catheters. Right IJ sheath in place. IMPRESSION: Post operative cardiac surgery changes with trace bilateral pleural effusions. [facility], , 01/17/2025 8:04 AM
[2025-01-17 08:17] LABS: Glucose,Whole Blood 165 mg/dL (70-110)
[2025-01-17] MEDS: METOPROLOL TARTRATE 12.5 MG TAB PO SCH (08:49)
[2025-01-17] MEDS: MAGNESIUM SULFATE-D5W PMX 1 GM in DEXTROSE/WATER 1 100ML.BAG IVPB ONE (08:49)
[2025-01-17] MEDS: POTASSIUM CHLORIDE ER 20 MEQ TAB.ER PO STA (08:59)
[2025-01-17] MEDS: FUROSEMIDE 10 MG/ML 4 ML VIAL IV STA (08:59)
[2025-01-17] MEDS: LOSARTAN 25 MG TAB PO SCH (09:12)
--- NOTE | 2025-01-17 10:43 | P.PN ---
Subjective Progress Note Date: 01/17/25 Principal diagnosis: Bicuspid aortic valve with severe regurgitation and moderate stenosis, ascending aortic aneurysm at 4.5 cm stable over 5 years, and preserved left ventricular function. Past medical history significant for factor V Leiden disorder on Eliquis as an outpatient, history of 2 deep vein thrombosis episodes to his right lower extremity, 1 after an ACL repair and another 1 spontaneous, hypertension, hyperlipidemia, exercise-induced asthma, osteoarthritis and is a lifetime non-smoker. POD #3 aortic valve replacement using a 27 mm Inspiris pericardial bioprosth esis, supra coronary ascending aortic replacement using a 32 mm Gelweave graft, exclusion left atrial appendage using a 40 mm Atriclip, intraoperative transesophageal echocardiogram and epiaortic scanning. Postoperative acute blood loss anemia, expected given hemodilution and cardiopulmonary bypass. Postoperative paroxysmal atrial fibrillation, a known common occurrence after cardiac surgery. The patient was seen and examined in follow-up today January 17, 2025 at his bedside in the intensive care unit. He is currently sitting up to the bedside chair, is awake, alert, oriented x 3 and is in no acute apparent distress. He denies any complaints of shortness of breath at this time, although is complaining of some surgical type pain to his chest. Oxygen saturations are 95% on room air and he is achieving 1500 mL on his incentive spirometry with encouragement. Bedside telemetry is showing normal sinus rhythm heart rate 73 bpm. Right IJ cordis remains in place with continuous CVP monitoring, current CVP pressure 7 mmHg. Atrial and ventricular epicardial pacemaker wires remain in place and are connected to backup bedside pacemaker generator on a VVI mode of 50. His chest tubes were removed yesterday without incident. Laboratory and chest x-ray results were reviewed. The patient has been up ambulating in the intensive care unit hallway with standby assistance from nursing and therapy staff and tolerating well. Objective - Vital Signs Vital signs: Vital Signs Temp 97.9 F 01/17/25 00:00 Pulse 77 01/17/25 07:00 Resp 16 01/17/25 07:00 BP 120/91 01/17/25 07:00 Pulse Ox 94 L 01/17/25 07:00 FiO2 50 01/14/25 18:00 Intake & Output 01/16/25 01/17/25 01/17/25 18:59 06:59 18:59 Intake Total 668.649 432 134.332 Output Total 455 500 50 Balance 213.649 -68 84.332 Weight 86 kg Intake: IV 462 432 36 0.9ns for pressure bag 72 72 6 Sodium Chloride 0.9% 1, 390 360 30 000 ml @ 20 mls/hr IV . Q24H [facility] Rx#:[id number] Intake, IV Titration 206.649 98.332 Amount Amiodarone 360 mg In 200 98.332 Dextrose 5% in Water 200 ml @ 1 MG/MIN 33.333 mls/ hr IV .Q6H [facility] Rx#: [id number] Insulin Regular 100 unit 6.649 In Sodium Chloride 0.9% 100 ml @ Per Protocol IV .Q0M [facility] Rx#:[id number] Output: Chest Tube Drainage 30 Chest Tube Mediastinal 20 Right 10 Urine 425 500 50 Other: Voiding Method Indwelling Catheter Toilet Bedside Commode # Voids 0 # Bowel Movements 1 ABP, PAP, CO, CI - Last Documented Arterial Blood Pressure 124/82 Pulmonary Artery Pressure 14/4 Cardiac Output 5.5 Cardiac Index 3.1 - Exam CONSTITUTIONAL: Sitting up to the bedside chair in the intensive care unit, appears comfortable, cooperative, no apparent acute distress. HEENT: Neck is supple, no JVD, no lymphadenopathy. Right IJ Cordis in place and functioning. RESPIRATORY: Lungs sounds essentially clear throughout, diminished to his bilateral bases. Respirations are symmetrical and nonlabored. Currently on room air with oxygen saturations 95%. Able to achieve 1500 mL on his incentive spirometry. Strong cough. CARDIOVASCULAR: Regular rhythm and rate. S1 and S2 present, negative for S3, gallop or murmur. Bedside telemetry is showing normal sinus rhythm heart rate 73 bpm. Sternum is stable. Palpable peripheral pulses bilaterally. No calf pain or tenderness noted. Heart hugger in place with patient demonstrating appropriate use. Knee-high ZUNILDA hose and sequential compression devices in place to his bilateral lower extremities. GASTROINTESTINAL: Abdomen soft, nontender, and distended. Active bowel sounds present 4 quadrants. Tolerating diet. Passing flatus. No guarding or rigidity. Bowel movement yesterday 01/16/2025. GENITOURINARY: Continues to void. Urine output 400 mL in the last 8 hours. INTEGUMENTARY: Skin is warm and dry with no evidence of clubbing or cyanosis. Midline sternal incision clean dry and well approximated, covered with dry intact dressing. NEUROLOGIC: Cranial nerves II through XII intact. No focal deficits. MUSKULOSKELETAL: Able to move all extremities, strength equal bilaterally, generalized weakness. PSYCHIATRIC: Alert and oriented to person place and time, appropriate affect, intact judgment and insight. INVASIVE LINES AND TUBES: Atrial and ventricular epicardial pacemaker wires are in place and connected to backup bedside pacemaker generator on a VVI at 50 bpm. Right internal jugular Cordis, right brachial arterial line present. CVP 7 mmHg. - Allied health notes Allied health notes reviewed: nursing - Labs CBC & Chem 7: 01/17/25 05:35 01/17/25 05:35 Labs: Abnormal Lab Results - Last 24 Hours (Table) 01/16/25 01/16/25 01/16/25 Range/Units 03:30 09:20 11:19 RBC (4.40-5.60) 10*6/uL Hgb (13.0-17.0) g/dL Hct (39.6-50.0) % MCH (27.0-32.0) pg Plt Count (140-440) 10*3/uL Lymphocytes # (0.90-5.00) 10*3/uL Eosinophils # (0.04-0.35) 10*3/uL Sodium (137-145) mmol/L Glucose (74-99) mg/dL POC Glucose (mg/dL) 146 H 157 H (70-110) mg/dL Calcium (8.4-10.2) mg/dL Iron 9 L (65-175) UG/DL % Saturation 3.91 L (15.00-50.00) Transferrin 164.0 L (204.0-354.0) mg/dL Total Protein (6.3-8.2) g/dL Albumin (3.5-5.0) g/dL 01/16/25 01/16/25 01/16/25 Range/Units 12:45 17:25 20:06 RBC (4.40-5.60) 10*6/uL Hgb (13.0-17.0) g/dL Hct (39.6-50.0) % MCH (27.0-32.0) pg Plt Count (140-440) 10*3/uL Lymphocytes # (0.90-5.00) 10*3/uL Eosinophils # (0.04-0.35) 10*3/uL Sodium (137-145) mmol/L Glucose (74-99) mg/dL POC Glucose (mg/dL) 150 H 179 H 168 H (70-110) mg/dL Calcium (8.4-10.2) mg/dL Iron (65-175) UG/DL % Saturation (15.00-50.00) Transferrin (204.0-354.0) mg/dL Total Protein (6.3-8.2) g/dL Albumin (3.5-5.0) g/dL 01/17/25 01/17/25 01/17/25 Range/Units 05:35 05:35 08:15 RBC 3.01 L (4.40-5.60) 10*6/uL Hgb 8.0 L (13.0-17.0) g/dL Hct 24.1 L (39.6-50.0) % MCH 26.6 L (27.0-32.0) pg Plt Count 110 L (140-440) 10*3/uL Lymphocytes # 0.65 L (0.90-5.00) 10*3/uL Eosinophils # 0.00 L (0.04-0.35) 10*3/uL Sodium 127 L (137-145) mmol/L Glucose 187 H (74-99) mg/dL POC Glucose (mg/dL) 165 H (70-110) mg/dL Calcium 8.2 L (8.4-10.2) mg/dL Iron (65-175) UG/DL % Saturation (15.00-50.00) Transferrin (204.0-354.0) mg/dL Total Protein 4.9 L (6.3-8.2) g/dL Albumin 2.8 L (3.5-5.0) g/dL - Imaging and Cardiology Chest x-ray: report reviewed, image reviewed Assessment and Plan Assessment: Bicuspid aortic valve with severe regurgitation and moderate stenosis, status post aortic valve replacement using a 27 mm Inspiris pericardial bioprosthesis Ascending aortic aneurysm at 4.5 cm stable over 5 years, status post supra coronary ascending aortic replacement using a 32 mm Gelweave graft Postoperative paroxysmal atrial fibrillation, a known, occurrence after cardiac surgery, currently normal sinus rhythm Factor V Leiden disorder, and Eliquis as an outpatient History of 2 previous deep vein thrombosis to his right lower extremity, 1 after ACL repair and another 1 spontaneous Hypertension Hyperlipidemia, triglycerides 295, cholesterol 250, LDL 132 Exercise-induced asthma, preoperative FEV1 2.64, 75% of predicted value Osteoarthritis Lifetime non-smoker Plan: Continue to maximize medical therapy with aspirin, statin, Plavix, and beta-b locker. Will decrease metoprolol to tartrate to 12.5 mg p.o. twice daily with hold parameters due to junctional rhythm. Cozaar 25 mg p.o. daily added for afterload reduction. Keep atrial and ventricular epicardial pacemaker wires in place and connected to bedside backup pacemaker generator on a VVI at 50 bpm. Encourage incentive spirometry use 10 times every hour while awake. Bronchodilators per pulmonology. Will monitor daily labs and chest x-rays. Electrolyte replacement per protocol. Increase activity, ambulate as tolerated. PT/OT/cardiac rehab following. GI/DVT prophylaxis. Pain control per current medication regimen. Insulin management per internal medicine. Preoperative hemoglobin A1c 5.8%. Remove right IJ Cordis Cordis and right brachial arterial line. Continue to monitor and record strict accurate intake and output. May bladder scan every 6 hours and as needed postvoid residuals. If greater than 300 mL of urine may straight cath. Lasix 40 mg IV x 1 now. Calcium gluconate 1 g IV piggyback x 1 now. Dulcolax suppository x 1 now. Transfer orders will be placed to the third floor cardiac stepdown unit. More recommendations to follow based on patient's clinical course Time with Patient: Greater than 30
--- NOTE | 2025-01-17 10:43 | P.PN ---
Subjective Progress Note Date: 01/17/25 This is a 59-year-old male patient with a known history of factor V Leyden deficiency with 2 previous DVTs to the right lower extremity maintained on Eliquis, hyperlipidemia. He also has a known history of ascending aortic aneurysm measuring 4.5 cm and a bicuspid aortic valve with severe regurgitation and mild stenosis. He was brought in today electively for surgery. He did undergo aortic valve replacement with a 27 mm Inspiris pericardial bio prostatic, ascending aortic replacement using a Gelweave graft, exclusion of left atrial appendage. Postoperative day #0. He is seen postoperatively in the intensive care unit. He remains intubated on the mechanical ventilator and assist-control mode at a rate of 16, tidal volume 500, FiO2 100% and a PEEP of 5. Arterial blood gases reveal a PaO2 of 381, PCO2 of 40 and a pH of 7.41. He is currently sedated on propofol at 50 mcg/kg/min. Normal saline at 50 mL/h. Cardiac output 5.4. Cardiac index 3.1. PA pressures 38/18, CVP 14. He is currently a paced V sensed with pacer wires in place. X-ray tracheal tube at 1.8 cm above the fernie. 2 mediastinal drainage catheters, 1 right thoracotomy tube. Right IJ [place]-Brady catheter in place. White count 8.5. Hemoglobin 9.7. Platelets 122. Sodium 137. Potassium 4.5. Bicarb 25. BUN 11. Creatinine 0.91. Glucose 127. He is initiated on DuoNeb inhalations. Heparin for DVT prophylaxis. The patient is seen today January 15, 2025 in follow-up in the intensive care unit. Postoperative day #1. He is currently sitting up in a chair. Awake and alert in no acute distress. Maintaining O2 saturations in the 90s on 2 L/min per nasal cannula. He is continued on insulin drip at 3.5 units an hour. Normal saline at 50 mL/h. Chest x-ray reveals postoperative cardiac surgery changes. 2 mediastinal chest tubes in place, right thoracotomy chest tube in place to Pleur-evac's and wall suction. Right IJ cordis catheter in place. Pacer wires in place with backup pacing in VVI mode at 50 bpm. White count 11.1. Hemoglobin 10.0. Platelets 151. Sodium 135. Potassium 4.0. Bicarb 25. BUN 12. Creatinine 0.85. Glucose 113. He remains on bronchodilators. Heparin for DVT prophylaxis. The patient is seen today January 16, 2025 in follow-up in the intensive care unit. Postoperative day #2. He is awake and alert in no acute distress. He is currently resting in bed. Awake and alert in no acute distress. Maintaining O2 saturations in the 90s on 2 L/min per nasal cannula. He is on a amiodarone drip at 1 mg/min. Normal saline at 40 mL/h. He is afebrile. Hemodynamically stable. Chest x-ray reveals postoperative surgical changes. 2 mediastinal chest tubes in place. Right thoracotomy tube in place. Right IJ cordis remains. White count 10.6. Hemoglobin 8.6. Platelets 119. Sodium 132. Potassium 4.3. Bicarb 25. BUN 15. Creatinine 1.0. He is working well with the incentive spirometer. Remains on bronchodilators. Heparin for DVT prophylaxis. The patient is seen today January 17, 2025 in follow-up in the intensive care unit. Postoperative day #3. He is currently sitting up in a chair at the bedside. Awake and alert in no acute distress. He did have episode of atrial fibrillation requiring amiodarone bolus and drip. He has since converted back to sinus rhythm this morning. He has normal saline at 30 mL/h. He is maintaining good O2 saturations in the 90s on room air oxygen. Chest x-ray reveals postoperative cardiac surgery changes with trace bilateral pleural effusions. Continues to work well with the incentive spirometer. White count 8.0. Hemoglobin 8.0. Platelets 110. Sodium 127. Potassium 4.1. Bicarb 22. BUN 18. Creatinine 0.86. Glucose 123. He remains on DuoNeb inhalations. Heparin for DVT prophylaxis. Protonix for GI prophylaxis. Objective - Vital Signs Vital signs: Vital Signs Temp 97.9 F 01/17/25 00:00 Pulse 77 01/17/25 07:00 Resp 16 01/17/25 07:00 BP 120/91 01/17/25 07:00 Pulse Ox 94 L 01/17/25 07:00 FiO2 50 01/14/25 18:00 Intake & Output 01/16/25 01/17/25 01/17/25 18:59 06:59 18:59 Intake Total 668.649 432 134.332 Output Total 455 500 50 Balance 213.649 -68 84.332 Weight 86 kg Intake: IV 462 432 36 0.9ns for pressure bag 72 72 6 Sodium Chloride 0.9% 1, 390 360 30 000 ml @ 20 mls/hr IV . Q24H [facility] Rx#:[id number] Intake, IV Titration 206.649 98.332 Amount Amiodarone 360 mg In 200 98.332 Dextrose 5% in Water 200 ml @ 1 MG/MIN 33.333 mls/ hr IV .Q6H [facility] Rx#: [id number] Insulin Regular 100 unit 6.649 In Sodium Chloride 0.9% 100 ml @ Per Protocol IV .Q0M [facility] Rx#:[id number] Output: Chest Tube Drainage 30 Chest Tube Mediastinal 20 Right 10 Urine 425 500 50 Other: Voiding Method Indwelling Catheter Toilet Bedside Commode # Voids 0 # Bowel Movements 1 ABP, PAP, CO, CI - Last Documented Arterial Blood Pressure 124/82 Pulmonary Artery Pressure 14/4 Cardiac Output 5.5 Cardiac Index 3.1 - Exam GENERAL EXAM: Alert, pleasant, 59-year-old male, on room air oxygen, up in a karis ir, comfortable in no apparent distress. HEAD: Normocephalic. EYES: Normal reaction of pupils, equal size. NOSE: Clear with pink turbinates. THROAT: No erythema or exudates. NECK: No masses, no JVD. Right IJ cordis catheter in place. CHEST: Heart hugger in place. Sternal dressing dry and intact. Mediastinal and right pleural chest tubes in place. Pacer wires in place. LUNGS: Equal air entry with no crackles, wheeze, rhonchi or dullness. CVS: S1 and S2 normal with no audible murmur, regular rhythm. ABDOMEN: No hepatosplenomegaly, normal bowel sounds, no guarding or rigidity. SPINE: No scoliosis or deformity SKIN: No rashes CENTRAL NERVOUS SYSTEM: No focal deficits, tone is normal in all 4 extremities. EXTREMITIES: ZUNILDA hose and SCDs in place. There is no peripheral edema. Peripheral pulses are intact. - Labs CBC & Chem 7: 01/17/25 05:35 01/17/25 05:35 Labs: Abnormal Lab Results - Last 24 Hours (Table) 01/16/25 01/16/25 01/16/25 Range/Units 11:19 12:45 17:25 RBC (4.40-5.60) 10*6/uL Hgb (13.0-17.0) g/dL Hct (39.6-50.0) % MCH (27.0-32.0) pg Plt Count (140-440) 10*3/uL Lymphocytes # (0.90-5.00) 10*3/uL Eosinophils # (0.04-0.35) 10*3/uL Sodium (137-145) mmol/L Glucose (74-99) mg/dL POC Glucose (mg/dL) 157 H 150 H 179 H (70-110) mg/dL Calcium (8.4-10.2) mg/dL Total Protein (6.3-8.2) g/dL Albumin (3.5-5.0) g/dL 01/16/25 01/17/25 01/17/25 Range/Units 20:06 05:35 05:35 RBC 3.01 L (4.40-5.60) 10*6/uL Hgb 8.0 L (13.0-17.0) g/dL Hct 24.1 L (39.6-50.0) % MCH 26.6 L (27.0-32.0) pg Plt Count 110 L (140-440) 10*3/uL Lymphocytes # 0.65 L (0.90-5.00) 10*3/uL Eosinophils # 0.00 L (0.04-0.35) 10*3/uL Sodium 127 L (137-145) mmol/L Glucose 187 H (74-99) mg/dL POC Glucose (mg/dL) 168 H (70-110) mg/dL Calcium 8.2 L (8.4-10.2) mg/dL Total Protein 4.9 L (6.3-8.2) g/dL Albumin 2.8 L (3.5-5.0) g/dL 01/17/25 Range/Units 08:15 RBC (4.40-5.60) 10*6/uL Hgb (13.0-17.0) g/dL Hct (39.6-50.0) % MCH (27.0-32.0) pg Plt Count (140-440) 10*3/uL Lymphocytes # (0.90-5.00) 10*3/uL Eosinophils # (0.04-0.35) 10*3/uL Sodium (137-145) mmol/L Glucose (74-99) mg/dL POC Glucose (mg/dL) 165 H (70-110) mg/dL Calcium (8.4-10.2) mg/dL Total Protein (6.3-8.2) g/dL Albumin (3.5-5.0) g/dL Assessment and Plan Assessment: Bicuspid aortic valve with severe regurgitation and moderate stenosis, ascending aortic aneurysm at 4.5 cm. Status post aortic valve replacement utilizing a 27 mm Inspiris pericardial bioprosthetic. Ascending aortic replacement utilizing a 32 mm Gelweave graft. Exclusion of left atrial appendage. Postoperative day #3 Mechanical ventilator management, expected outcome of surgery, extubated and on 2 L nasal cannula Atrial fibrillation with rapid ventricular response, requiring amiodarone, curre ntly in sinus mechanism History of factor V Leiden deficiency Hyperlipidemia Plan: The patient was seen and evaluated Chest x-ray, labs and medications reviewed Working well with the incentive spirometer Currently stable and on room air oxygen Continue bronchodilators Heparin for DVT prophylaxis Increase his activity as tolerated We will continue to follow I have personally seen and examined the patient, performed the documentation and the assessment and plan as written. Number of minutes spent on the visit: 10 Dictation was produced using [employer] dictation software. Please excuse any grammatical, word or spelling errors.
[2025-01-17 11:29] LABS: Glucose,Whole Blood 157 mg/dL (70-110)
--- NOTE | 2025-01-17 13:39 | P.PN ---
Progress Note - Text Patient doing well. Resting comfortably in bed He had paroxysmal atrial fibrillation for which she was treated with IV boluses of amiodarone According to the nurse the night before he received 4 boluses of IV amiodarone i dont see these on medications given Last night he once again received 4 boluses of IV amiodarone for paroxysmal atrial fibrillation in the last several hours heart sounds are normal Breath sounds are clear blood pressure 132/89 mmHg pulse rate in the 60s afebrile Impression bicuspid aortic valve, severe regurgitation with moderate stenosis ascending aortic aneurysm Factor V Leyden disorder, on Eliquis History of DVT Aortic valve replacement, pericardial bioprosthesis Supra coronary ascending aortic replacement Left atrial appendage appendectomy In sinus rhythm now Plan Continue current medications and avoid high-dose amiodarone repeated IV boluses of amiodarone
--- NOTE | 2025-01-17 15:07 | P.PN ---
Progress Note - Text Progress Note Date: 01/17/25 - Chief Complaint Arctic valve replacement - History of Present Illness 59-year-old patient follows with Dr. Ozzy Carbone. Chronic medical conditions include asthma, factor V Leiden mutation, prior history of DVT, hyperlipidemia osteoarthritis, exercise-induced asthma, migraines, history of kidney stones. Patient in today has undergone aortic valve replacement., With a bioprosthesis. Ascending aorta replacement with a graft. Postprocedure in the ICU. Intubated. Currently weaning on CPAP. Current drips include Precedex and insulin. Patient has 2 mediastinal and 1 right pleural chest tube. Currently lethargic not able to give a history. January 15: Patient seen this morning in the ICU. Family present. Up in a chair. Clear liquids. Some pain with breathing. Chest tubes in place-some serosanguineous output. Delgado catheter in place. On insulin drip. Sinus rhythm with some ectopics. Using incentive spirometry. January 16: ICU. Chest tubes have been taken out. Delgado discontinued earlier. Eating fair. Had gone into A-fib yesterday. On IV amiodarone. Will DC insulin drip placed on Accu-Cheks. Breathing better. Eating about 25%. Did walk in the hallway with therapy. January 17: ICU. Overnight patient had A-fib with rapid ventricular rate. Was given IV bolus. Back into sinus rhythm. Otherwise tolerating diet. With the A-fib episode patient did become short of breath. Did ambulate. Eating fair. Active Medications Acetaminophen (Acetaminophen Tab 325 Mg Tab) 650 mg PO Q4HR PRN PRN Reason: Fever And/ Or Mild Pain (1-3) Last Admin: 01/17/25 08:59 Dose: 650 mg Albuterol/Ipratropium (Ipratropium-Albuterol 3 Ml Neb) 3 ml INHALATION RT-Q2H PRN PRN Reason: Shortness Of Breath Or Wheezing Albuterol/Ipratropium (Ipratropium-Albuterol 3 Ml Neb) 3 ml INHALATION RT-QID [facility] Last Admin: 01/17/25 11:50 Dose: 3 ml Aspirin (Aspirin 325 Mg Tab) 325 mg PO DAILY [facility] Last Admin: 01/17/25 08:49 Dose: 325 mg Atorvastatin Calcium (Atorvastatin 40 Mg Tab) 40 mg PO DAILY [facility] Last Admin: 01/17/25 08:49 Dose: 40 mg Bisacodyl (Bisacodyl 10 Mg Supp) 10 mg RECTAL DAILY PRN PRN Reason: Constipation Last Admin: 01/17/25 08:59 Dose: 10 mg Clopidogrel Bisulfate (Clopidogrel 75 Mg Tab) 75 mg PO DAILY [facility] Last Admin: 01/17/25 08:49 Dose: 75 mg Dextrose/Water (Dextrose 50% Syringe 50 Ml) 25 ml IVP PER PROTOCOL PRN; Protocol PRN Reason: Hypoglycemia Dextrose/Water (Dextrose 50% Syringe 50 Ml) 50 ml IVP PER PROTOCOL PRN; Protocol PRN Reason: Hypoglycemia Heparin Sodium (Porcine) (Heparin Sodium,Porcine 5,000 Unit/Ml 1 Ml Vial) 5,000 unit SQ Q8HR [facility] Last Admin: 01/17/25 08:48 Dose: 5,000 unit Hydralazine HCl (Hydralazine Hcl 20 Mg/Ml 1 Ml Vial) 10 mg IVP Q1H PRN PRN Reason: Blood Pressure - High Amiodarone HCl 150 mg/ (Dextrose/Water) 103 mls @ 618 mls/hr IV .Q10M PRN PRN Reason: A.FIB/FLUTTER Last Admin: 01/17/25 04:58 Dose: 618 mls/hr Calcium Gluconate/Sodium (Chloride 2 gm/ IV Solution) 100 mls @ 100 mls/hr IVPB ONCE PRN PRN Reason: Ionized Calcium less than 4.4 Stop: 01/18/25 13:56 Ferric Sodium Gluconate 125 mg (/ Sodium Chloride) 110 mls @ 100 mls/hr IVPB DAILY [facility] Stop: 01/18/25 10:05 Last Admin: 01/17/25 08:50 Dose: 100 mls/hr Insulin Human Lispro (Insulin Lispro (Humalog) 100 Unit/Ml 10 Ml Vl) 0 unit SQ ACHS [facility]; Protocol Last Admin: 01/17/25 12:34 Dose: 2 unit Ketorolac Tromethamine (Ketorolac 15 Mg/Ml 1 Ml Vial) 15 mg IVP Q6HR [facility] Stop: 01/20/25 09:55 Last Admin: 01/17/25 12:34 Dose: 15 mg Losartan Potassium (Losartan 25 Mg Tab) 25 mg PO DAILY [facility] Last Admin: 01/17/25 09:12 Dose: 25 mg Magnesium Hydroxide (Magnesium Hydroxide 2,400 Mg/30 Ml Cup) 2,400 mg PO BID PRN PRN Reason: Constipation Methocarbamol (Methocarbamol 750 Mg Tab) 750 mg PO QID PRN PRN Reason: Muscle Spasm Last Admin: 01/17/25 03:32 Dose: 750 mg Metoclopramide HCl (Metoclopramide 5 Mg/Ml 2 Ml Vial) 10 mg IVP Q4H PRN PRN Reason: Nausea And Vomiting Last Admin: 01/15/25 06:18 Dose: 10 mg Metoprolol Tartrate (Metoprolol Tartrate 12.5 Mg Tab) 12.5 mg PO BID [facility] Last Admin: 01/17/25 08:49 Dose: 12.5 mg Miscellaneous Information (Potassium Replacement Protocol 1 Each Misc) 1 each MISCELLANE DAILY PRN; Protocol PRN Reason: Per Protocol Miscellaneous Information (Magnesium Replacement Protocol 1 Each Misc) 1 each MISCELLANE DAILY PRN; Protocol PRN Reason: Per Protocol Ondansetron HCl (Ondansetron 4 Mg/2 Ml Vial) 4 mg IVP Q6HR PRN PRN Reason: Nausea And Vomiting Last Admin: 01/14/25 21:53 Dose: 4 mg Pantoprazole Sodium (Pantoprazole 40 Mg Tablet) 40 mg PO AC-BRKFST [facility] Last Admin: 01/17/25 08:49 Dose: 40 mg Senna/Docusate Sodium (Sennosides-Docusate Sodium 1 Each Tab) 2 each PO HS [facility] Last Admin: 01/16/25 20:25 Dose: 2 each Sodium Chloride (Sodium Chloride 0.9% Flush 10 Ml Syringe) 10 ml IV BID [facility] Last Admin: 01/17/25 09:12 Dose: 10 ml Social history: Non-smoker. Alcohol rarely. Physical examination: VITAL SIGNS: 97.5, 68, 16, 132 x 89, 97% room air GENERAL: Comfortable. In a chair EYES: Pupils equal. Conjunctiva wicho l. HEENT: [External appearance of nose and ears normal, endotracheal tube NECK: JVD unable to assess; masses not palpable. HEART: First and second heart sounds are normal; no edema. LUNGS: Respiratory rate increased; decreased breath sound. ABDOMEN: Soft, nontender, liver spleen not palpable, no masses palpable. Delgado catheter-discontinued PSYCH: AO x 3, mood affect normal MUSCULOSKELETAL:No Clubbing/cyanosis;muscles-grossly intact INVESTIGATIONS, reviewed in the clinical context: January 17: White count 8.0 hemoglobin 8.0 platelets 110 sodium 127 potassium 4.1 creatinine 0.86 January 16: White count 10.6 hemoglobin 8.6 platelets 119 potassium 4.3 creatinine 1.0. Magnesium 1.9 iron 9 TIBC 230% saturation 3.9 transferrin 164 ferritin 56.5 B12 264 folate 0.8 January 15: White count 1.1 hemoglobin 10 platelets 151 potassium 4 creatinine 0.85 January 14, 2025: White count 8.5 hemoglobin 9.7 platelets 122 sodium 137 potassium 4.5 BUN 11 creatinine 0.91 albumin 2.8 Previous labs: January 07, 2025: White count 4.2 hemoglobin 11.5 platelets 242 December 09, 2024 LDL 132 Assessment plan: - Bicuspid aortic valve with severe regurgitation and moderate stenosis ascending aortic aneurysm at 4.5 cm. Stable over 5 years.: Followed by aortic valve replacement with pericardial bioprosthesis and ascending aorta replacement with a graft by Dr. Corona - 2 mediastinal chest tubes and 1 right pleural chest tube.: Removed -IV insulin drip. Being discontinued -Status post postop ventilator assist, patient extubated - Hypoalbuminemia, postop. Acute phase reactant. Received IV albumin - Recurrent paroxysmal t atrial fibrillation Received overnight bolus IV amiodarone. Lopressor 12.5 mg twice daily Anticoagulation decision as per cardiology/cardiothoracic surgery - Hyperlipidemia Statins -Acute postprocedure blood loss anemia expected from surgery. With iron deficiency picture B12 folate normal IV iron - Essential hypertension Currently blood pressure on the softer side. Follow closely - Chronic DVT Eliquis currently held - Primary osteoarthritis Pain medication as needed - Factor V Leiden mutation On Eliquis-currently held Patient on aspirin, Plavix. Currently off Eliquis Thank you Dr. Croona Past Medical History Past Medical History: Asthma, Blood Disorder, Deep Vein Thrombosis (DVT), Hyperlipidemia, Osteoarthritis (OA) Additional Past Medical History / Comment(s): EXERCISE INDUCED ASTHMA, MIGRAINES, TORN LEFT MENISCUS, FACTOR 5 LEIDEN, VARICOSE VEIN RIGHT LEG, HX KIDNEY STONES. History of Any Multi-Drug Resistant Organisms: None Reported Past Surgical History: Heart Catheterization, Hernia Repair, Orthopedic Surgery Additional Past Surgical History / Comment(s): HERNIA REPAIR X2, RIGHT MENISCUS REPAIR, LEFT KNEE SURGERY, RIGHT ACL REPAIR, PROCEDURE FOR KIDNEY STONE, SONY. Past Anesthesia/Blood Transfusion Reactions: No Reported Reaction Additional Past Anesthesia/Blood Transfusion Reaction / Comm: DIFFICULTY WAKING UP - STATES GROGGY FOR HOURS. Smoking Status: Never smoker
[2025-01-17 15:54] LABS: Glucose,Whole Blood 154 mg/dL (70-110)
[2025-01-17 20:19] LABS: Glucose,Whole Blood 138 mg/dL (70-110)
[2025-01-18 06:33] LABS: Glucose,Whole Blood 131 mg/dL (70-110)
--- NOTE | 2025-01-18 06:50 | XR ---
EXAMINATION TYPE: XR chest 2V DATE OF EXAM: 01/18/2025 CLINICAL INDICATION: Male, 59 years old with history of Postop AVR, TECHNIQUE: Frontal and lateral views of the chest are obtained. COMPARISON: Chest x-ray from one day earlier FINDINGS: Overlying sternal wires along with left atrial appendage with a metallic aortic valve are a ll redemonstrated. Persistent cardiomegaly with small bilateral pleural effusions. Overlying EKG lead s are redemonstrated. The osseous structures are intact. IMPRESSION: Cardiomegaly with small bilateral pleural effusions. No significant change from one day calin head. [facility], , 01/18/2025 6:47 AM
[2025-01-18 07:00] LABS: HCT 26.1 % (39.6-50.0); HGB 8.5 g/dL (13.0-17.0); MCH 26.3 pg (27.0-32.0); MCHC 32.6 g/dL (32.0-37.0); MCV 80.8 fL (80.0-97.0); Mean Platelet Volume 10.5 fL (9.5-12.2); RBC 3.23 10*6/uL (4.40-5.60); RDW 15.1 % (11.5-14.5); WBC 7.81 10*3/uL (4.50-10.00)
[2025-01-18 07:06] LABS: Platelet Count 174 10*3/uL (140-440)
[2025-01-18 07:38] LABS: African American GFR (CKD) >90 (>60 ml/min/1.73 sqM); Anion Gap 7 mmol/L; Blood Urea Nitrogen 18 mg/dL (9-20); Calcium 8.5 mg/dL (8.4-10.2); Carbon Dioxide 24 mmol/L (22-30); Chloride 101 mmol/L (98-107); Glucose 135 mg/dL (74-99); Magnesium 1.9 mg/dL (1.6-2.3); Non-African American GFR(CKD) 79 (>60 ml/min/1.73 sqM); Potassium 3.6 mmol/L (3.5-5.1); Sodium 132 mmol/L (137-145)
--- NOTE | 2025-01-18 08:55 | P.PN ---
Subjective Progress Note Date: 01/18/25 Principal diagnosis: Bicuspid aortic valve with severe regurgitation and moderate stenosis, ascending aortic aneurysm at 4.5 cm stable over 5 years, and preserved left ventricular function. Previous medical history of factor V Leiden disorder on Eliquis as an outpatient, 2 deep vein thrombosis episodes to his right lower extremity (1 after an ACL repair and another 1 spontaneous), hypertension, hyperlipidemia, exercise-induced asthma, osteoarthritis and lifelong non-smoker. POD #4 aortic valve replacement using a 27 mm Inspiris pericardial bioprosthesis, supra coronary ascending aortic replacement using a 32 mm Gelweave graft, exclusion left atrial appendage using a 40 mm Atriclip, intraoperative transesophageal echocardiogram and epiaortic scanning. Postoperative acute blood loss anemia, expected given hemodilution and cardiopulmonary bypass. Postoperative paroxysmal atrial fibrillation, a known common occurrence after cardiac surgery. The patient was seen and examined this morning sitting up in recliner on the cardiac stepdown unit in no acute distress. He remains in sinus rhythm and hemodynamically stable although he does go into rapid A-fib with ambulation and was given 2 boluses of IV amiodarone last night per nursing. His beta-chaparro was decreased yesterday due to episodes of junctional heart rhythm. States pain is mostly controlled on current medication regimen, denies shortness of breath. Remains on room air with oxygen saturation in the high 90s, able to achieve 1500 mL on his incentive spirometry. Chest x-ray, labs reviewed. Patient inquiring about when he can go home. No other new concerns. Objective - Vital Signs Vital signs: Vital Signs Temp 98.3 F 01/18/25 04:00 Pulse 114 H 01/18/25 04:00 Resp 15 01/18/25 04:00 BP 130/88 01/18/25 04:00 Pulse Ox 98 01/18/25 04:00 FiO2 50 01/14/25 18:00 Intake & Output 01/17/25 01/18/25 01/18/25 18:59 06:59 18:59 Intake Total 448.332 320 90 Output Total 1075 650 Balance -626.668 -330 90 Weight 84.4 kg Intake: IV 150 20 0.9ns for pressure bag 30 Invasive Line 5 20 Sodium Chloride 0.9% 1, 120 000 ml @ 20 mls/hr IV . Q24H [facility] Rx#:[id number] Intake, IV Titration 298.332 Amount Amiodarone 360 mg In 98.332 Dextrose 5% in Water 200 ml @ 1 MG/MIN 33.333 mls/ hr IV .Q6H PRN Rx#: [id number] Magnesium Sulfate-D5w Pmx 100 1 gm In Dextrose/Water 1 100ml.bag @ 100 mls/hr IVPB ONCE ONE Rx#: [id number] Sodium Ferric Gluconat- 100 Sucrose 125 mg In Sodium Chloride 0.9% 100 ml @ 100 mls/hr IVPB DAILY [facility] Rx#:[id number] Oral 300 90 Output: Urine 1075 650 Other: Voiding Method Bedside Commode Toilet Urinal Urinal # Voids 2 # Bowel Movements 1 ABP, PAP, CO, CI - Last Documented Arterial Blood Pressure 133/90 Pulmonary Artery Pressure 14/4 Cardiac Output 5.5 Cardiac Index 3.1 - Exam CONSTITUTIONAL: Appears comfortable, cooperative, no acute distress RESPIRATORY: Lungs sounds diminished in the bases bilaterally, left greater than right. Respirations even, nonlabored. Currently on room air with oxygen saturation 98%. Able to achieve 1500 mL on incentive spirometry. Strong cough. CARDIOVASCULAR: S1, S2 present. Regular rate and rhythm, sinus rhythm on telemetry. Sternum stable. Palpable peripheral pulses bilaterally. Trace generalized edema present. No calf pain or tenderness noted. Heart hugger in place with patient demonstrating appropriate use. Antiembolism stockings, SCDs present. GASTROINTESTINAL: Abdomen soft, nontender, nondistended. Active bowel sounds present 4 quadrants. Tolerating diet. Positive bowel movement 01/17 GENITOURINARY: Continues to void, 1175 mL in the last 24 hours INTEGUMENTARY: Skin is warm and dry with evidence of good perfusion. Anterior chest incision well approximated NEUROLOGIC: Cranial nerves II through XII intact MUSKULOSKELETAL: Able to move all extremities, strength equal bilaterally, gait normal PSYCHIATRIC: Alert and oriented to person place and time, appropriate affect, intact judgment and insight INVASIVE LINES AND TUBES: A/V epicardial pacemaker wires present, connected to generator, generator off - Allied health notes Allied health notes reviewed: nursing - Labs CBC & Chem 7: 01/18/25 06:44 01/18/25 06:44 Labs: Abnormal Lab Results - Last 24 Hours (Table) 01/17/25 01/17/25 01/17/25 Range/Units 08:15 11:26 15:52 RBC (4.40-5.60) 10*6/uL Hgb (13.0-17.0) g/dL Hct (39.6-50.0) % MCH (27.0-32.0) pg Sodium (137-145) mmol/L Glucose (74-99) mg/dL POC Glucose (mg/dL) 165 H 157 H 154 H (70-110) mg/dL 01/17/25 01/18/25 01/18/25 Range/Units 20:17 06:31 06:44 RBC (4.40-5.60) 10*6/uL Hgb (13.0-17.0) g/dL Hct (39.6-50.0) % MCH (27.0-32.0) pg Sodium 132 L (137-145) mmol/L Glucose 135 H (74-99) mg/dL POC Glucose (mg/dL) 138 H 131 H (70-110) mg/dL 01/18/25 Range/Units 06:44 RBC 3.23 L (4.40-5.60) 10*6/uL Hgb 8.5 L (13.0-17.0) g/dL Hct 26.1 L (39.6-50.0) % MCH 26.3 L (27.0-32.0) pg Sodium (137-145) mmol/L Glucose (74-99) mg/dL POC Glucose (mg/dL) (70-110) mg/dL - Imaging and Cardiology Chest x-ray: report reviewed, image reviewed Assessment and Plan Assessment: Bicuspid aortic valve with severe regurgitation and moderate stenosis, status post aortic valve replacement Ascending aortic aneurysm at 4.5 cm stable over 5 years, status post supra coronary ascending aortic replacement Preserved left ventricular function, EF 55 to 60% Postoperative acute blood loss anemia, expected given hemodilution and cardiopulmonary bypass. Postoperative paroxysmal atrial fibrillation, a known common occurrence after cardiac surgery. History of factor V Leiden disorder on Eliquis as an outpatient 2 deep vein thrombosis episodes to his right lower extremity (1 after an ACL repair and another 1 spontaneous) Hypertension Hyperlipidemia, Exercise-induced asthma Osteoarthritis Lifelong non-smoker. Plan: Continue to maximize medical therapy with low-dose aspirin, statin, and beta- chaparro. Beta-chaparro decreased yesterday due to junctional rhythm. Appreciate Dr. Rodriguez's input regarding beta-chaparro, amiodarone Cozaar 25 mg p.o. daily added for afterload reduction. Will discontinue epicardial pacemaker wires, patient to remain on bedrest for 1 hour post wire removal Will restart Eliquis this evening Encourage incentive spirometry use 10 times every hour while awake. Bronchodilators per pulmonology. Will monitor daily labs and chest x-rays. Electrolyte replacement per protocol. Increase activity, ambulate as tolerated. PT/OT/cardiac rehab following. GI/DVT prophylaxis. Pain control per current medication regimen. Insulin management per internal medicine. Preoperative hemoglobin A1c 5.8%. Continue to monitor and record strict accurate intake and output More recommendations to follow based on patient's clinical course
[2025-01-18] MEDS: ASPIRIN 81 MG PO SCH (09:04)
[2025-01-18] MEDS: POTASSIUM BICARBONATE/CIT AC 20 MEQ TABLET.EFF PO ONE (09:04)
[2025-01-18] MEDS: MAGNESIUM SULFATE-D5W PMX 1 GM in DEXTROSE/WATER 1 100ML.BAG IVPB SCH (09:31)
--- NOTE | 2025-01-18 10:52 | P.PN ---
Subjective Progress Note Date: 01/18/25 This is a 59-year-old male patient with a known history of factor V Leyden deficiency with 2 previous DVTs to the right lower extremity maintained on Eliquis, hyperlipidemia. He also has a known history of ascending aortic aneurysm measuring 4.5 cm and a bicuspid aortic valve with severe regurgitation and mild stenosis. He was brought in today electively for surgery. He did undergo aortic valve replacement with a 27 mm Inspiris pericardial bio prostatic, ascending aortic replacement using a Gelweave graft, exclusion of left atrial appendage. Postoperative day #0. He is seen postoperatively in the intensive care unit. He remains intubated on the mechanical ventilator and assist-control mode at a rate of 16, tidal volume 500, FiO2 100% and a PEEP of 5. Arterial blood gases reveal a PaO2 of 381, PCO2 of 40 and a pH of 7.41. He is currently sedated on propofol at 50 mcg/kg/min. Normal saline at 50 mL/h. Cardiac output 5.4. Cardiac index 3.1. PA pressures 38/18, CVP 14. He is currently a paced V sensed with pacer wires in place. X-ray tracheal tube at 1.8 cm above the fernie. 2 mediastinal drainage catheters, 1 right thoracotomy tube. Right IJ [place]-Brady catheter in place. White count 8.5. Hemoglobin 9.7. Platelets 122. Sodium 137. Potassium 4.5. Bicarb 25. BUN 11. Creatinine 0.91. Glucose 127. He is initiated on DuoNeb inhalations. Heparin for DVT prophylaxis. The patient is seen today January 15, 2025 in follow-up in the intensive care unit. Postoperative day #1. He is currently sitting up in a chair. Awake and alert in no acute distress. Maintaining O2 saturations in the 90s on 2 L/min per nasal cannula. He is continued on insulin drip at 3.5 units an hour. Normal saline at 50 mL/h. Chest x-ray reveals postoperative cardiac surgery changes. 2 mediastinal chest tubes in place, right thoracotomy chest tube in place to Pleur-evac's and wall suction. Right IJ cordis catheter in place. Pacer wires in place with backup pacing in VVI mode at 50 bpm. White count 11.1. Hemoglobin 10.0. Platelets 151. Sodium 135. Potassium 4.0. Bicarb 25. BUN 12. Creatinine 0.85. Glucose 113. He remains on bronchodilators. Heparin for DVT prophylaxis. The patient is seen today January 16, 2025 in follow-up in the intensive care unit. Postoperative day #2. He is awake and alert in no acute distress. He is currently resting in bed. Awake and alert in no acute distress. Maintaining O2 saturations in the 90s on 2 L/min per nasal cannula. He is on a amiodarone drip at 1 mg/min. Normal saline at 40 mL/h. He is afebrile. Hemodynamically stable. Chest x-ray reveals postoperative surgical changes. 2 mediastinal chest tubes in place. Right thoracotomy tube in place. Right IJ cordis remains. White count 10.6. Hemoglobin 8.6. Platelets 119. Sodium 132. Potassium 4.3. Bicarb 25. BUN 15. Creatinine 1.0. He is working well with the incentive spirometer. Remains on bronchodilators. Heparin for DVT prophylaxis. The patient is seen today January 17, 2025 in follow-up in the intensive care unit. Postoperative day #3. He is currently sitting up in a chair at the bedside. Awake and alert in no acute distress. He did have episode of atrial fibrillation requiring amiodarone bolus and drip. He has since converted back to sinus rhythm this morning. He has normal saline at 30 mL/h. He is maintaining good O2 saturations in the 90s on room air oxygen. Chest x-ray reveals postoperative cardiac surgery changes with trace bilateral pleural effusions. Continues to work well with the incentive spirometer. White count 8.0. Hemoglobin 8.0. Platelets 110. Sodium 127. Potassium 4.1. Bicarb 22. BUN 18. Creatinine 0.86. Glucose 123. He remains on DuoNeb inhalations. Heparin for DVT prophylaxis. Protonix for GI prophylaxis. The patient is seen today January 18, 2025 in follow-up on the selective care unit. He was transferred out of the intensive care unit yesterday. This is postoperative day #4. He is sitting up in a chair. Awake and alert in no acute distress. Maintaining good O2 saturations in the 90s on room air oxygen. No IV fluids. He did have an episode of atrial fibrillation while up ambulating. He is anticoagulated with Eliquis. Continued on bronchodilators. Continues to work well with the incentive spirometer. Chest x-ray shows cardiomegaly with small bilateral pleural effusions. No change compared to yesterday. White count 7.8. Hemoglobin 8.5. Platelets 174. Sodium 132. Potassium 3.6. Bicarb 24. BUN 18. Creatinine 1.04. Glucose 135. Objective - Vital Signs Vital signs: Vital Signs Temp 97.8 F 01/18/25 09:06 Pulse 97 01/18/25 09:06 Resp 18 01/18/25 09:06 BP 100/64 01/18/25 09:06 Pulse Ox 99 01/18/25 09:06 FiO2 21 01/18/25 08:34 Intake & Output 01/17/25 01/18/25 01/18/25 18:59 06:59 18:59 Intake Total 448.332 320 100 Output Total 1075 650 Balance -626.668 -330 100 Weight 84.4 kg Intake: IV 150 20 10 0.9ns for pressure bag 30 Invasive Line 5 20 10 Sodium Chloride 0.9% 1, 120 000 ml @ 20 mls/hr IV . Q24H [facility] Rx#:[id number] Intake, IV Titration 298.332 Amount Amiodarone 360 mg In 98.332 Dextrose 5% in Water 200 ml @ 1 MG/MIN 33.333 mls/ hr IV .Q6H PRN Rx#: [id number] Magnesium Sulfate-D5w Pmx 100 1 gm In Dextrose/Water 1 100ml.bag @ 100 mls/hr IVPB ONCE ONE Rx#: [id number] Sodium Ferric Gluconat- 100 Sucrose 125 mg In Sodium Chloride 0.9% 100 ml @ 100 mls/hr IVPB DAILY [facility] Rx#:[id number] Oral 300 90 Output: Urine 1075 650 Other: Voiding Method Bedside Commode Toilet Toilet Urinal Urinal Urinal # Voids 2 1 # Bowel Movements 1 1 ABP, PAP, CO, CI - Last Documented Arterial Blood Pressure 133/90 Pulmonary Artery Pressure 14/4 Cardiac Output 5.5 Cardiac Index 3.1 - Exam GENERAL EXAM: Alert, active 59-year-old male, on room air oxygen, up in a chair, comfortable in no apparent distress. HEAD: Normocephalic. EYES: Normal reaction of pupils, equal size. NOSE: Clear with pink turbinates. THROAT: No erythema or exudates. NECK: No masses, no JVD. CHEST: Heart hugger in place. Sternal dressing dry and intact. Pacer wires in place. LUNGS: Equal air entry with no crackles, wheeze, rhonchi or dullness. CVS: S1 and S2 normal with no audible murmur, regular rhythm. ABDOMEN: No hepatosplenomegaly, normal bowel sounds, no guarding or rigidity. SPINE: No scoliosis or deformity SKIN: No rashes CENTRAL NERVOUS SYSTEM: No focal deficits, tone is normal in all 4 extremities. EXTREMITIES: ZUNILDA hose and SCDs in place. There is no peripheral edema. Peripheral pulses are intact. - Labs CBC & Chem 7: 01/18/25 06:44 01/18/25 06:44 Labs: Abnormal Lab Results - Last 24 Hours (Table) 01/17/25 01/17/25 01/17/25 Range/Units 11:26 15:52 20:17 RBC (4.40-5.60) 10*6/uL Hgb (13.0-17.0) g/dL Hct (39.6-50.0) % MCH (27.0-32.0) pg Sodium (137-145) mmol/L Glucose (74-99) mg/dL POC Glucose (mg/dL) 157 H 154 H 138 H (70-110) mg/dL 01/18/25 01/18/25 01/18/25 Range/Units 06:31 06:44 06:44 RBC 3.23 L (4.40-5.60) 10*6/uL Hgb 8.5 L (13.0-17.0) g/dL Hct 26.1 L (39.6-50.0) % MCH 26.3 L (27.0-32.0) pg Sodium 132 L (137-145) mmol/L Glucose 135 H (74-99) mg/dL POC Glucose (mg/dL) 131 H (70-110) mg/dL Assessment and Plan Assessment: Bicuspid aortic valve with severe regurgitation and moderate stenosis, ascending aortic aneurysm at 4.5 cm. Status post aortic valve replacement utilizing a 27 mm Inspiris pericardial bioprosthetic. Ascending aortic replacement utilizing a 32 mm Gelweave graft. Exclusion of left atrial appendage. Postoperative day #4 Mechanical ventilator management, expected outcome of surgery, extubated and on 2 L nasal cannula Atrial fibrillation with rapid ventricular response, requiring amiodarone, currently in sinus mechanism. Anticoagulated with Eliquis History of factor V Leiden deficiency Hyperlipidemia Plan: The patient was seen and evaluated Chest x-ray, labs and medications reviewed Episodes of atrial fibrillation with ambulation Being initiated on Eliquis Working well with the incentive spirometer Currently stable and on room air oxygen Continue bronchodilators Increase his activity as tolerated We will continue to follow I have personally seen and examined the patient, performed the documentation and the assessment and plan as written. Number of minutes spent on the visit: 10 Dictation was produced using [employer] dictation software. Please excuse any grammatical, word or spelling errors.
[2025-01-18 12:04] LABS: Glucose,Whole Blood 145 mg/dL (70-110)
--- NOTE | 2025-01-18 14:46 | P.PN ---
Progress Note - Text Progress Note Date: 01/18/25 - Chief Complaint Arctic valve replacement - History of Present Illness 59-year-old patient follows with Dr. Ozzy Carbone. Chronic medical conditions include asthma, factor V Leiden mutation, prior history of DVT, hyperlipidemia osteoarthritis, exercise-induced asthma, migraines, history of kidney stones. Patient in today has undergone aortic valve replacement., With a bioprosthesis. Ascending aorta replacement with a graft. Postprocedure in the ICU. Intubated. Currently weaning on CPAP. Current drips include Precedex and insulin. Patient has 2 mediastinal and 1 right pleural chest tube. Currently lethargic not able to give a history. January 15: Patient seen this morning in the ICU. Family present. Up in a chair. Clear liquids. Some pain with breathing. Chest tubes in place-some serosanguineous output. Delgado catheter in place. On insulin drip. Sinus rhythm with some ectopics. Using incentive spirometry. January 16: ICU. Chest tubes have been taken out. Delgado discontinued earlier. Eating fair. Had gone into A-fib yesterday. On IV amiodarone. Will DC insulin drip placed on Accu-Cheks. Breathing better. Eating about 25%. Did walk in the hallway with therapy. January 17: ICU. Overnight patient had A-fib with rapid ventricular rate. Was given IV bolus. Back into sinus rhythm. Otherwise tolerating diet. With the A-fib episode patient did become short of breath. Did ambulate. Eating fair. January 18: Eating fair. Did ambulate in the hallway. Breathing stable.Epicardial pacemaker wires are being discontinued today. Eliquis will be resumed later today. Getting IV iron Active Medications Acetaminophen (Acetaminophen Tab 325 Mg Tab) 650 mg PO Q4HR PRN PRN Reason: Fever And/ Or Mild Pain (1-3) Last Admin: 01/18/25 09:04 Dose: 650 mg Albuterol/Ipratropium (Ipratropium-Albuterol 3 Ml Neb) 3 ml INHALATION RT-Q2H PRN PRN Reason: Shortness Of Breath Or Wheezing Albuterol/Ipratropium (Ipratropium-Albuterol 3 Ml Neb) 3 ml INHALATION RT-QID CLINT Last Admin: 01/18/25 12:08 Dose: 3 ml Apixaban (Apixaban 5 Mg Tab) 5 mg PO BID [facility]; Protocol Aspirin (Aspirin 81 Mg) 81 mg PO DAILY [facility] Last Admin: 01/18/25 09:04 Dose: 81 mg Atorvastatin Calcium (Atorvastatin 40 Mg Tab) 40 mg PO DAILY [facility] Last Admin: 01/18/25 09:05 Dose: 40 mg Bisacodyl (Bisacodyl 10 Mg Supp) 10 mg RECTAL DAILY PRN PRN Reason: Constipation Last Admin: 01/17/25 08:59 Dose: 10 mg Dextrose/Water (Dextrose 50% Syringe 50 Ml) 25 ml IVP PER PROTOCOL PRN; Protocol PRN Reason: Hypoglycemia Dextrose/Water (Dextrose 50% Syringe 50 Ml) 50 ml IVP PER PROTOCOL PRN; Protocol PRN Reason: Hypoglycemia Heparin Sodium (Porcine) (Heparin Sodium,Porcine 5,000 Unit/Ml 1 Ml Vial) 5,000 unit SQ Q8HR [facility] Stop: 01/18/25 17:00 Last Admin: 01/18/25 09:04 Dose: 5,000 unit Hydralazine HCl (Hydralazine Hcl 20 Mg/Ml 1 Ml Vial) 10 mg IVP Q1H PRN PRN Reason: Blood Pressure - High Insulin Human Lispro (Insulin Lispro (Humalog) 100 Unit/Ml 10 Ml Vl) 0 unit SQ ACHS [facility]; Protocol Last Admin: 01/18/25 12:08 Dose: Not Given Ketorolac Tromethamine (Ketorolac 15 Mg/Ml 1 Ml Vial) 15 mg IVP Q6HR [facility] Stop: 01/20/25 09:55 Last Admin: 01/18/25 12:07 Dose: 15 mg Losartan Potassium (Losartan 25 Mg Tab) 25 mg PO DAILY [facility] Last Admin: 01/18/25 09:05 Dose: 25 mg Magnesium Hydroxide (Magnesium Hydroxide 2,400 Mg/30 Ml Cup) 2,400 mg PO BID PRN PRN Reason: Constipation Methocarbamol (Methocarbamol 750 Mg Tab) 750 mg PO QID PRN PRN Reason: Muscle Spasm Last Admin: 01/17/25 03:32 Dose: 750 mg Metoclopramide HCl (Metoclopramide 5 Mg/Ml 2 Ml Vial) 10 mg IVP Q4H PRN PRN Reason: Nausea And Vomiting Last Admin: 01/15/25 06:18 Dose: 10 mg Metoprolol Tartrate (Metoprolol Tartrate 12.5 Mg Tab) 12.5 mg PO BID [facility] Last Admin: 01/18/25 09:05 Dose: 12.5 mg Miscellaneous Information (Potassium Replacement Protocol 1 Each Misc) 1 each MISCELLANE DAILY PRN; Protocol PRN Reason: Per Protocol Miscellaneous Information (Magnesium Replacement Protocol 1 Each Misc) 1 each MISCELLANE DAILY PRN; Protocol PRN Reason: Per Protocol Ondansetron HCl (Ondansetron 4 Mg/2 Ml Vial) 4 mg IVP Q6HR PRN PRN Reason: Nausea And Vomiting Last Admin: 01/14/25 21:53 Dose: 4 mg Pantoprazole Sodium (Pantoprazole 40 Mg Tablet) 40 mg PO AC-BRKFST [facility] Last Admin: 01/18/25 06:49 Dose: 40 mg Senna/Docusate Sodium (Sennosides-Docusate Sodium 1 Each Tab) 2 each PO HS [facility] Last Admin: 01/17/25 21:19 Dose: 2 each Sodium Chloride (Sodium Chloride 0.9% Flush 10 Ml Syringe) 10 ml IV BID [facility] Last Admin: 01/18/25 09:05 Dose: 10 ml Social history: Non-smoker. Alcohol rarely. Physical examination: VITAL SIGNS: 97.8, 70, 16, 104 x 62, 97% room air GENERAL: Up in a chair EYES: Pupils equal. Conjunctiva wicho l. HEENT: [External appearance of nose and ears normal, endotracheal tube NECK: JVD unable to assess; masses not palpable. HEART: First and second heart sounds are normal; no edema. LUNGS: Respiratory rate increased; decreased breath sound. ABDOMEN: Soft, nontender, liver spleen not palpable, no masses palpable. Delgado catheter-discontinued PSYCH: AO x 3, mood affect normal MUSCULOSKELETAL:No Clubbing/cyanosis;muscles-grossly intact INVESTIGATIONS, reviewed in the clinical context: January 18: White count 7.8 hemoglobin 8.5 potassium 3.6 creatinine 1.04 January 9: White count 8.0 hemoglobin 8.0 platelets 110 sodium 127 potassium 4.1 cr eatinine 0.86 January 8: White count 10.6 hemoglobin 8.6 platelets 119 potassium 4.3 creatinine 1.0. Magnesium 1.9 iron 9 TIBC 230% saturation 3.9 transferrin 164 ferritin 56.5 B12 264 folate 0.8 January 7: White count 1.1 hemoglobin 10 platelets 151 potassium 4 creatinine 0.85 January 14, 2025: White count 8.5 hemoglobin 9.7 platelets 122 sodium 137 potassium 4.5 BUN 11 creatinine 0.91 albumin 2.8 Previous labs: January 07, 2025: White count 4.2 hemoglobin 11.5 platelets 242 December 09, 2024 LDL 132 Assessment plan: - Bicuspid aortic valve with severe regurgitation and moderate stenosis ascending aortic aneurysm at 4.5 cm. Stable over 5 years.: Followed by aortic valve replacement with pericardial bioprosthesis and ascending aorta replacement with a graft by Dr. Corona - 2 mediastinal chest tubes and 1 right pleural chest tube.: Removed -IV insulin drip. Being discontinued -Status post postop ventilator assist, patient extubated - Hypoalbuminemia, postop. Acute phase reactant. Received IV albumin - Recurrent paroxysmal t atrial fibrillation Received overnight bolus IV amiodarone. Lopressor 12.5 mg twice daily Eliquis will be started later today. - Hyperlipidemia Statins -Acute postprocedure blood loss anemia expected from surgery. With iron deficiency picture B12 folate normal IV iron x 3 bags - Essential hypertension Lopressor 12.5 twice daily - Chronic DVT Eliquis being started today - Primary osteoarthritis Pain medication as needed - Factor V Leiden mutation On Eliquis-will be started today Eliquis be started today. Increase activity. Thank you Dr. Corona Past Medical History Past Medical History: Asthma, Blood Disorder, Deep Vein Thrombosis (DVT), Hyperlipidemia, Osteoarthritis (OA) Additional Past Medical History / Comment(s): EXERCISE INDUCED ASTHMA, MIGRAINES, TORN LEFT MENISCUS, FACTOR 5 LEIDEN, VARICOSE VEIN RIGHT LEG, HX KIDNEY STONES. History of Any Multi-Drug Resistant Organisms: None Reported Past Surgical History: Heart Catheterization, Hernia Repair, Orthopedic Surgery Additional Past Surgical History / Comment(s): HERNIA REPAIR X2, RIGHT MENISCUS REPAIR, LEFT KNEE SURGERY, RIGHT ACL REPAIR, PROCEDURE FOR KIDNEY STONE, SONY. Past Anesthesia/Blood Transfusion Reactions: No Reported Reaction Additional Past Anesthesia/Blood Transfusion Reaction / Comm: DIFFICULTY WAKING UP - STATES GROGGY FOR HOURS. Smoking Status: Never smoker
[2025-01-18 16:49] LABS: Glucose,Whole Blood 151 mg/dL (70-110)
--- NOTE | 2025-01-18 16:58 | P.PN ---
Subjective Progress Note Date: 01/18/25 HPI Patient has history of bicuspid aortic valve with severe regurgitation and moderate stenosis along with ascending aorta aneurysm measuring at 4.5 cm. He also has history of factor V Leyden deficiency along with prior history of 2 DVTs hypertension dyslipidemia and exercise-induced asthma. He underwent surgical aortic valve replacement along with supra coronary ascending aortic replacement with endovascular graft, and atrial clip ligation. SUBJECTIVE: 01/18 Over last 2 days patient has been having intermittent bouts of atrial fibrillation. Previously he received few boluses of amiodarone however is difficult to track how much of amiodarone has he received. He did receive magnesium infusions which helped his heart rates. PHYSICAL EXAMINATION Eyes: Sclerae nonicteric. Neck: Brisk carotid upstroke, no jugular venous distention. Lungs: Clear to auscultation. Heart: Irregularly irregular pulse, minimal outflow tract murmur audible, surgical scar healing well Abdomen: Soft nontender, bowel sounds present, Extremities: No edema, Neuro: Alert, oriented, no focal neurological deficits. Detailed neuro exam was not performed. ASSESSMENT Bicuspid aortic valve with severe regurgitation moderate stenosis status post surgical aortic valve placement Surgical supra coronary ascending aorta replacement with graft Paroxysmal atrial fibrillation History of factor V Leyden deficiency on anticoagulation Essential hypertension Dyslipidemia PLAN Stop losartan due to low resting blood pressure Increase metoprolol to 25 mg twice daily. Start p.o. amiodarone 200 mg 3 times daily for first week. From second week reduce it to 200 mg twice daily and from third week reduce it to 200 mg daily. Maintain amiodarone for total of 1 month and thereafter discontinue Anticipate discharge in next 24 hours Kingsley Gomez MD, FACC, RPVI Thank you for allowing [facility] to participate in this patient's care. Please contact us in case of any followup questions. Objective - Vital Signs Vital signs: Vital Signs Temp 97.8 F 01/18/25 09:06 Pulse 106 H 01/18/25 16:42 Resp 16 01/18/25 16:42 BP 134/83 01/18/25 16:42 Pulse Ox 93 L 01/18/25 16:42 FiO2 21 01/18/25 08:34 Intake & Output 01/17/25 01/18/25 01/18/25 18:59 06:59 18:59 Intake Total 448.332 320 590 Output Total 1075 650 Balance -626.668 -973 590 Weight 84.4 kg Intake: IV 150 20 20 0.9ns for pressure bag 30 Invasive Line 5 20 20 Sodium Chloride 0.9% 1, 120 000 ml @ 20 mls/hr IV . Q24H [facility] Rx#:[id number] Intake, IV Titration 298.332 Amount Amiodarone 360 mg In 98.332 Dextrose 5% in Water 200 ml @ 1 MG/MIN 33.333 mls/ hr IV .Q6H PRN Rx#: [id number] Magnesium Sulfate-D5w Pmx 100 1 gm In Dextrose/Water 1 100ml.bag @ 100 mls/hr IVPB ONCE ONE Rx#: [id number] Sodium Ferric Gluconat- 100 Sucrose 125 mg In Sodium Chloride 0.9% 100 ml @ 100 mls/hr IVPB DAILY [facility] Rx#:[id number] Oral 300 570 Output: Urine 1075 650 Other: Voiding Method Bedside Commode Toilet Toilet Urinal Urinal Urinal # Voids 2 1 # Bowel Movements 1 1 ABP, PAP, CO, CI - Last Documented Arterial Blood Pressure 133/90 Pulmonary Artery Pressure 14/4 Cardiac Output 5.5 Cardiac Index 3.1 - Labs CBC & Chem 7: 01/18/25 06:44 01/18/25 06:44 Labs: Abnormal Lab Results - Last 24 Hours (Table) 01/17/25 01/18/25 01/18/25 Range/Units 20:17 06:31 06:44 RBC (4.40-5.60) 10*6/uL Hgb (13.0-17.0) g/dL Hct (39.6-50.0) % MCH (27.0-32.0) pg Sodium 132 L (137-145) mmol/L Glucose 135 H (74-99) mg/dL POC Glucose (mg/dL) 138 H 131 H (70-110) mg/dL 01/18/25 01/18/25 01/18/25 Range/Units 06:44 11:57 16:44 RBC 3.23 L (4.40-5.60) 10*6/uL Hgb 8.5 L (13.0-17.0) g/dL Hct 26.1 L (39.6-50.0) % MCH 26.3 L (27.0-32.0) pg Sodium (137-145) mmol/L Glucose (74-99) mg/dL POC Glucose (mg/dL) 145 H 151 H (70-110) mg/dL
[2025-01-18] MEDS: AMIODARONE 200 MG TAB PO SCH (17:04)
[2025-01-18 19:57] LABS: Glucose,Whole Blood 165 mg/dL (70-110)
[2025-01-18] MEDS: METOPROLOL TARTRATE 25 MG TAB PO SCH (20:03)
[2025-01-18] MEDS: APIXABAN 5 MG TAB PO SCH (20:03)
[2025-01-19 06:11] LABS: Glucose,Whole Blood 125 mg/dL (70-110)
[2025-01-19 07:57] LABS: HCT 25.4 % (39.6-50.0); HGB 8.3 g/dL (13.0-17.0); MCH 26.7 pg (27.0-32.0); MCHC 32.7 g/dL (32.0-37.0); MCV 81.7 fL (80.0-97.0); Mean Platelet Volume 10.9 fL (9.5-12.2); Platelet Count 193 10*3/uL (140-440); RBC 3.11 10*6/uL (4.40-5.60); RDW 15.3 % (11.5-14.5); WBC 7.38 10*3/uL (4.50-10.00)
--- NOTE | 2025-01-19 08:06 | XR ---
EXAMINATION TYPE: XR chest 2V DATE OF EXAM: 01/19/2025 7:12 AM COMPARISON: Chest radiographs from 01/18/2025 CLINICAL INDICATION: Male, 59 years old with history of Postcardiac surgery; [facility] TECHNIQUE: XR chest 2V Frontal and lateral views of the chest. FINDINGS: Lungs/Pleura: No evidence of focal consolidation or pneumothorax. Blunting of the costophrenic angles is present. Pulmonary vascularity: Unremarkable. Heart/mediastinum: Cardiomediastinal silhouette is enlarged. Post aortic valve repair changes. Left atrial appendage occlusion device is present. Musculoskeletal: No acute osseous pathology. Other findings: None IMPRESSION: 1. No acute cardiopulmonary disease/process. 2. Trace bilateral pleural effusions. [facility], , 01/19/2025 8:04 AM
[2025-01-19 08:10] LABS: African American GFR (CKD) 85 (>60 ml/min/1.73 sqM); Anion Gap 9 mmol/L; Blood Urea Nitrogen 18 mg/dL (9-20); Calcium 8.6 mg/dL (8.4-10.2); Carbon Dioxide 25 mmol/L (22-30); Chloride 101 mmol/L (98-107); Glucose 116 mg/dL (74-99); Magnesium 2.2 mg/dL (1.6-2.3); Non-African American GFR(CKD) 73 (>60 ml/min/1.73 sqM); Potassium 3.5 mmol/L (3.5-5.1); Sodium 135 mmol/L (137-145)
[2025-01-19] MEDS: POTASSIUM BICARBONATE/CIT AC 20 MEQ TABLET.EFF PO ONE ×2 (08:36→16:18)
--- NOTE | 2025-01-19 09:13 | P.PN ---
Subjective Progress Note Date: 01/19/25 Principal diagnosis: Bicuspid aortic valve. This is a 59-year-old male patient with a known history of factor V Leyden deficiency with 2 previous DVTs to the right lower extremity maintained on Eliquis, hyperlipidemia. He also has a known history of ascending aortic aneurysm measuring 4.5 cm and a bicuspid aortic valve with severe regurgitation and mild stenosis. He was brought in today electively for surgery. He did undergo aortic valve replacement with a 27 mm Inspiris pericardial bio prostatic, ascending aortic replacement using a Gelweave graft, exclusion of left atrial appendage. Postoperative day #0. He is seen postoperatively in the intensive care unit. He remains intubated on the mechanical ventilator and assist-control mode at a rate of 16, tidal volume 500, FiO2 100% and a PEEP of 5. Arterial blood gases reveal a PaO2 of 381, PCO2 of 40 and a pH of 7.41. He is currently sedated on propofol at 50 mcg/kg/min. Normal saline at 50 mL/h. Cardiac output 5.4. Cardiac index 3.1. PA pressures 38/18, CVP 14. He is currently a paced V sensed with pacer wires in place. X-ray tracheal tube at 1.8 cm above the fernie. 2 mediastinal drainage catheters, 1 right thoracotomy tube. Right IJ Mabton-Brady catheter in place. White count 8.5. Hemoglobin 9.7. Platelets 122. Sodium 137. Potassium 4.5. Bicarb 25. BUN 11. Creatinine 0.91. Glucose 127. He is initiated on DuoNeb inhalations. Heparin for DVT prophylaxis. The patient is seen today January 15, 2025 in follow-up in the intensive care unit. Postoperative day #1. He is currently sitting up in a chair. Awake and alert in no acute distress. Maintaining O2 saturations in the 90s on 2 L/min per nasal cannula. He is continued on insulin drip at 3.5 units an hour. Normal saline at 50 mL/h. Chest x-ray reveals postoperative cardiac surgery changes. 2 mediastinal chest tubes in place, right thoracotomy chest tube in place to Pleur-evac's and wall suction. Right IJ cordis catheter in place. Pacer wires in place with backup pacing in VVI mode at 50 bpm. White count 11.1. Hemoglob in 10.0. Platelets 151. Sodium 135. Potassium 4.0. Bicarb 25. BUN 12. Creatinine 0.85. Glucose 113. He remains on bronchodilators. Heparin for DVT prophylaxis. The patient is seen today January 16, 2025 in follow-up in the intensive care unit. Postoperative day #2. He is awake and alert in no acute distress. He is currently resting in bed. Awake and alert in no acute distress. Maintaining O2 saturations in the 90s on 2 L/min per nasal cannula. He is on a amiodarone drip at 1 mg/min. Normal saline at 40 mL/h. He is afebrile. Hemodynamically stable. Chest x-ray reveals postoperative surgical changes. 2 mediastinal chest tubes in place. Right thoracotomy tube in place. Right IJ cordis remains. White count 10.6. Hemoglobin 8.6. Platelets 119. Sodium 132. Potassium 4.3. Bicarb 25. BUN 15. Creatinine 1.0. He is working well with the incentive spirometer. Remains on bronchodilators. Heparin for DVT prophylaxis. The patient is seen today January 17, 2025 in follow-up in the intensive care unit. Postoperative day #3. He is currently sitting up in a chair at the bedside. Awake and alert in no acute distress. He did have episode of atrial fibrillation requiring amiodarone bolus and drip. He has since converted back to sinus rhythm this morning. He has normal saline at 30 mL/h. He is maintaining good O2 saturations in the 90s on room air oxygen. Chest x-ray reveals postoperative cardiac surgery changes with trace bilateral pleural effusions. Continues to work well with the incentive spirometer. White count 8.0. Hemoglobin 8.0. Platelets 110. Sodium 127. Potassium 4.1. Bicarb 22. BUN 18. Creatinine 0.86. Glucose 123. He remains on DuoNeb inhalations. Heparin for DVT prophylaxis. Protonix for GI prophylaxis. The patient is seen today January 18, 2025 in follow-up on the selective care unit. He was transferred out of the intensive care unit yesterday. This is postoperative day #4. He is sitting up in a chair. Awake and alert in no acute distress. Maintaining good O2 saturations in the 90s on room air oxygen. No IV fluids. He did have an episode of atrial fibrillation while up ambulating. He is anticoagulated with Eliquis. Continued on bronchodilators. Continues to work well with the incentive spirometer. Chest x-ray shows cardiomegaly with small bilateral pleural effusions. No change compared to yesterday. White count 7.8. Hemoglobin 8.5. Platelets 174. Sodium 132. Potassium 3.6. Bicarb 24. BUN 18. Creatinine 1.04. Glucose 135. Progress note dated January 19, 2025. This is a 59-year-old male with a history of bicuspid aortic valve. The patient had a aortic valve replacement, as well as repair of his aortic root. The patient is postoperative day #5. He is resting comfortably in room 381. He is on room air. No IV fluids. The patient is having issues with atrial fibrillation. For that reason, the patient is likely not to be discharged. We will discontinue the updrafts, which may be contributing to his atrial fibrillation. Clinically, he feels well. Current laboratory data includes a white count 7.4, hemoglobin 8.3, hematocrit 25.4, and a normal platelet count. Sodium 135, potassium 3.5, chlorides 101, CO2 25, BUN 18, creatinine 1.10. Chest x-ray continues to show trace bilateral pleural effusions. Objective - Vital Signs Vital signs: Vital Signs Temp 98.0 F 01/19/25 04:00 Pulse 62 01/19/25 04:00 Resp 16 01/19/25 04:00 BP 127/71 01/19/25 04:00 Pulse Ox 97 01/19/25 04:00 FiO2 21 01/18/25 08:34 Intake & Output 01/18/25 01/19/25 01/19/25 18:59 06:59 18:59 Intake Total 590 560 Output Total 550 400 Balance 40 160 Weight 84.3 kg Intake: IV 20 20 Invasive Line 5 20 20 Oral 570 540 Output: Urine 550 400 Other: Voiding Method Toilet Toilet Urinal Urinal # Voids 2 2 # Bowel Movements 1 ABP, PAP, CO, CI - Last Documented Arterial Blood Pressure 133/90 Pulmonary Artery Pressure 14/4 Cardiac Output 5.5 Cardiac Index 3.1 - Exam No acute distress, oriented 3. HEENT examination is grossly unremarkable. Mucous membranes are moist. No oral lesions. Neck supple. Full range of motion. No adenopathy thyromegaly or neck vein distention. Cardiovascular examination reveals an irregular rhythm and rate. The patient is clearly in atrial fibrillation. Heart sounds are distant. No heart murmur. Lungs reveal clear breath sounds. Breath sounds are equal bilaterally. No adventitious lung sounds including wheezes rhonchi or crackles. Abdomen soft bowel sounds are heard. No masses or tenderness. Extremities are intact. No cyanosis clubbing or edema. Skin is without rash or lesion. Neurologic examination is brief but nonfocal. - Labs CBC & Chem 7: 01/19/25 07:42 01/19/25 07:42 Labs: Abnormal Lab Results - Last 24 Hours (Table) 01/18/25 01/18/25 01/18/25 Range/Units 11:57 16:44 19:56 RBC (4.40-5.60) 10*6/uL Hgb (13.0-17.0) g/dL Hct (39.6-50.0) % MCH (27.0-32.0) pg Sodium (137-145) mmol/L Glucose (74-99) mg/dL POC Glucose (mg/dL) 145 H 151 H 165 H (70-110) mg/dL 01/19/25 01/19/25 01/19/25 Range/Units 06:09 07:42 07:42 RBC 3.11 L (4.40-5.60) 10*6/uL Hgb 8.3 L (13.0-17.0) g/dL Hct 25.4 L (39.6-50.0) % MCH 26.7 L (27.0-32.0) pg Sodium 135 L (137-145) mmol/L Glucose 116 H (74-99) mg/dL POC Glucose (mg/dL) 125 H (70-110) mg/dL Assessment and Plan Assessment: Bicuspid aortic valve with severe regurgitation and moderate stenosis, ascending aortic aneurysm at 4.5 cm. Status post aortic valve replacement utilizing a 27 mm Inspiris pericardial bioprosthetic. Ascending aortic replacement utilizing a 32 mm Gelweave graft. Exclusion of left atrial appendage. Postoperative day #5. Routine postoperative ventilator management. Atrial fibrillation with rapid ventricular response. History of factor V Leiden deficiency. Hyperlipidemia. Plan: Plan dated January 19, 2025. The patient is doing relatively well. The patient is currently on room air. No IV fluids. The patient continues with atrial fibrillation. Labs, x-rays, and medications are reviewed. The patient is going to have his breathing treatment stopped, as they may be contributing to his tachycardia. We will continue to follow. Today is postoperative day #5. Dictation was produced using [employer] dictation software. Please excuse any grammatical, word or spelling errors. Time with Patient: Less than 30
--- NOTE | 2025-01-19 09:54 | P.PN ---
Subjective Progress Note Date: 01/19/25 Principal diagnosis: Bicuspid aortic valve with severe regurgitation and moderate stenosis, ascending aortic aneurysm at 4.5 cm stable over 5 years, and preserved left ventricular function. Previous medical history of factor V Leiden disorder on Eliquis as an outpatient, 2 deep vein thrombosis episodes to his right lower extremity (1 after an ACL repair and another 1 spontaneous), hypertension, hyperlipidemia, exercise-induced asthma, osteoarthritis and lifelong non-smoker. POD #5 aortic valve replacement using a 27 mm Inspiris pericardial bioprosthesis, supra coronary ascending aortic replacement using a 32 mm Gelweave graft, exclusion left atrial appendage using a 40 mm Atriclip, intraoperative transesophageal echocardiogram and epiaortic scanning. Postoperative acute blood loss anemia, expected given hemodilution and cardiopulmonary bypass. Postoperative paroxysmal atrial fibrillation, a known common occurrence after cardiac surgery. The patient was seen and examined this morning sitting up in recliner on the cardiac stepdown unit in no acute distress. Currently in atrial fibrillation and hemodynamically stable. Long discussion had yesterday with Dr. Rodriguez regarding management of atrial fibrillation especially given preoperative significant bradycardia with heart rate in the 40s despite no AV catracho blockers. Recommendations as of yesterday morning per Dr. Rodriguez were to continue beta- chaparro at current dose, no more amiodarone, rapid administration of high concentration magnesium sulfate for A-fib rate control. He was restarted on his Eliquis yesterday. States pain is mostly controlled on current medication regimen, denies shortness of breath. Remains on room air with oxygen saturation in the high 90s, able to achieve 2000 mL on his incentive spirometry. Chest x- ray, labs reviewed. Patient has been ambulatory without difficulty. Objective - Vital Signs Vital signs: Vital Signs Temp 98.0 F 01/19/25 04:00 Pulse 62 01/19/25 04:00 Resp 16 01/19/25 04:00 BP 127/71 01/19/25 04:00 Pulse Ox 97 01/19/25 04:00 FiO2 21 01/18/25 08:34 Intake & Output 01/18/25 01/19/25 01/19/25 18:59 06:59 18:59 Intake Total 590 560 Output Total 550 400 Balance 40 160 Weight 84.3 kg Intake: IV 20 20 Invasive Line 5 20 20 Oral 570 540 Output: Urine 550 400 Other: Voiding Method Toilet Toilet Urinal Urinal # Voids 2 2 # Bowel Movements 1 ABP, PAP, CO, CI - Last Documented Arterial Blood Pressure 133/90 Pulmonary Artery Pressure 14/4 Cardiac Output 5.5 Cardiac Index 3.1 - Exam CONSTITUTIONAL: Appears comfortable, cooperative, no acute distress RESPIRATORY: Lungs sounds diminished in the bases bilaterally. Respirations even, nonlabored. Currently on room air with oxygen saturation 97%. Able to achieve 2000 mL on incentive spirometry. Strong cough. CARDIOVASCULAR: S1, S2 present. Irregular rate and rhythm, atrial fibrillation on telemetry. Sternum stable. Palpable peripheral pulses bilaterally. No edema present. No calf pain or tenderness noted. Heart hugger in place with patient demonstrating appropriate use. Antiembolism stockings, SCDs present. GASTROINTESTINAL: Abdomen soft, nontender, nondistended. Active bowel sounds present 4 quadrants. Tolerating diet. Positive bowel movement x5 5/10 GENITOURINARY: Continues to void INTEGUMENTARY: Skin is warm and dry with evidence of good perfusion. Anterior chest incision well approximated NEUROLOGIC: Cranial nerves II through XII intact MUSKULOSKELETAL: Able to move all extremities, strength equal bilaterally, gait normal PSYCHIATRIC: Alert and oriented to person place and time, appropriate affect, intact judgment and insight - Allied health notes Allied health notes reviewed: nursing - Labs CBC & Chem 7: 01/19/25 07:42 01/19/25 07:42 Labs: Abnormal Lab Results - Last 24 Hours (Table) 01/18/25 01/18/25 01/18/25 Range/Units 11:57 16:44 19:56 RBC (4.40-5.60) 10*6/uL Hgb (13.0-17.0) g/dL Hct (39.6-50.0) % MCH (27.0-32.0) pg Sodium (137-145) mmol/L Glucose (74-99) mg/dL POC Glucose (mg/dL) 145 H 151 H 165 H (70-110) mg/dL 01/19/25 01/19/25 01/19/25 Range/Units 06:09 07:42 07:42 RBC 3.11 L (4.40-5.60) 10*6/uL Hgb 8.3 L (13.0-17.0) g/dL Hct 25.4 L (39.6-50.0) % MCH 26.7 L (27.0-32.0) pg Sodium 135 L (137-145) mmol/L Glucose 116 H (74-99) mg/dL POC Glucose (mg/dL) 125 H (70-110) mg/dL - Imaging and Cardiology Chest x-ray: report reviewed, image reviewed Assessment and Plan Assessment: Bicuspid aortic valve with severe regurgitation and moderate stenosis, status post aortic valve replacement Ascending aortic aneurysm at 4.5 cm stable over 5 years, status post supra coronary ascending aortic replacement Preserved left ventricular function, EF 55 to 60% Postoperative acute blood loss anemia, expected given hemodilution and cardiopulmonary bypass. Postoperative paroxysmal atrial fibrillation, a known common occurrence after cardiac surgery. History of factor V Leiden disorder on Eliquis as an outpatient 2 deep vein thrombosis episodes to his right lower extremity (1 after an ACL repair and another 1 spontaneous) Hypertension Hyperlipidemia, Exercise-induced asthma Osteoarthritis Lifelong non-smoker. Plan: Continue to maximize medical therapy with low-dose aspirin, statin, and beta- chaparro. Beta-chaparro/Amio management per cardiology. Continue Eliquis Continue Cozaar 25 mg for afterload reduction with hold parameters Encourage incentive spirometry use 10 times every hour while awake. Bronchodilators per pulmonology. Will monitor daily labs and chest x-rays. Electrolyte replacement per protocol. Will give Lasix 20 mg IV push today Increase activity, ambulate as tolerated. PT/OT/cardiac rehab following. GI/DVT prophylaxis. Pain control per current medication regimen. Insulin management per internal medicine. Preoperative hemoglobin A1c 5.8%. Continue to monitor and record strict accurate intake and output Discharge planning in progress, anticipate discharge to home with home care in the next 24 to 48 hours More recommendations to follow based on patient's clinical course
[2025-01-19] MEDS: LOSARTAN 25 MG TAB PO SCH (12:36)
[2025-01-19] MEDS: FUROSEMIDE 10 MG/ML 2 ML VIAL IV ONE (12:36)
--- NOTE | 2025-01-19 14:07 | P.PN ---
Progress Note - Text Progress Note Date: 01/19/25 - Chief Complaint Arctic valve replacement - History of Present Illness 59-year-old patient follows with Dr. Ozzy Carbone. Chronic medical conditions include asthma, factor V Leiden mutation, prior history of DVT, hyperlipidemia osteoarthritis, exercise-induced asthma, migraines, history of kidney stones. Patient in today has undergone aortic valve replacement., With a bioprosthesis. Ascending aorta replacement with a graft. Postprocedure in the ICU. Intubated. Currently weaning on CPAP. Current drips include Precedex and insulin. Patient has 2 mediastinal and 1 right pleural chest tube. Currently lethargic not able to give a history. January 15: Patient seen this morning in the ICU. Family present. Up in a chair. Clear liquids. Some pain with breathing. Chest tubes in place-some serosanguineous output. Delgado catheter in place. On insulin drip. Sinus rhythm with some ectopics. Using incentive spirometry. January 16: ICU. Chest tubes have been taken out. Delgado discontinued earlier. Eating fair. Had gone into A-fib yesterday. On IV amiodarone. Will DC insulin drip placed on Accu-Cheks. Breathing better. Eating about 25%. Did walk in the hallway with therapy. January 17: ICU. Overnight patient had A-fib with rapid ventricular rate. Was given IV bolus. Back into sinus rhythm. Otherwise tolerating diet. With the A-fib episode patient did become short of breath. Did ambulate. Eating fair. January 18: Eating fair. Did ambulate in the hallway. Breathing stable.Epicardial pacemaker wires are being discontinued today. Eliquis will be resumed later today. Getting IV iron January 11: Ambulating. Did get some bloating. Breathing stable. Has been Eliquis. Feeling better Active Medications Acetaminophen (Acetaminophen Tab 325 Mg Tab) 650 mg PO Q4HR PRN PRN Reason: Fever And/ Or Mild Pain (1-3) Last Admin: 01/19/25 04:10 Dose: 650 mg Albuterol/Ipratropium (Ipratropium-Albuterol 3 Ml Neb) 3 ml INHALATION RT-Q2H PRN PRN Reason: Shortness Of Breath Or Wheezing Amiodarone HCl (Amiodarone 200 Mg Tab) 200 mg PO TID [facility] Last Admin: 01/19/25 08:24 Dose: 200 mg Apixaban (Apixaban 5 Mg Tab) 5 mg PO BID [facility]; Protocol Last Admin: 01/19/25 08:24 Dose: 5 mg Aspirin (Aspirin 81 Mg) 81 mg PO DAILY [facility] Last Admin: 01/19/25 08:24 Dose: 81 mg Atorvastatin Calcium (Atorvastatin 40 Mg Tab) 40 mg PO DAILY [facility] Last Admin: 01/19/25 08:24 Dose: 40 mg Bisacodyl (Bisacodyl 10 Mg Supp) 10 mg RECTAL DAILY PRN PRN Reason: Constipation Last Admin: 01/17/25 08:59 Dose: 10 mg Dextrose/Water (Dextrose 50% Syringe 50 Ml) 25 ml IVP PER PROTOCOL PRN; Protocol PRN Reason: Hypoglycemia Dextrose/Water (Dextrose 50% Syringe 50 Ml) 50 ml IVP PER PROTOCOL PRN; Protocol PRN Reason: Hypoglycemia Hydralazine HCl (Hydralazine Hcl 20 Mg/Ml 1 Ml Vial) 10 mg IVP Q1H PRN PRN Reason: Blood Pressure - High Insulin Human Lispro (Insulin Lispro (Humalog) 100 Unit/Ml 10 Ml Vl) 0 unit SQ [facility]; Protocol Last Admin: 01/19/25 12:24 Dose: Not Given Ketorolac Tromethamine (Ketorolac 15 Mg/Ml 1 Ml Vial) 15 mg IVP Q6HR [facility] Stop: 01/20/25 09:55 Last Admin: 01/19/25 12:36 Dose: 15 mg Losartan Potassium (Losartan 25 Mg Tab) 25 mg PO DAILY@1200 [facility] Last Admin: 01/19/25 13:28 Dose: 25 mg Magnesium Hydroxide (Magnesium Hydroxide 2,400 Mg/30 Ml Cup) 2,400 mg PO BID PRN PRN Reason: Constipation Methocarbamol (Methocarbamol 750 Mg Tab) 750 mg PO QID PRN PRN Reason: Muscle Spasm Last Admin: 01/17/25 03:32 Dose: 750 mg Metoclopramide HCl (Metoclopramide 5 Mg/Ml 2 Ml Vial) 10 mg IVP Q4H PRN PRN Reason: Nausea And Vomiting Last Admin: 01/18/25 18:09 Dose: 10 mg Metoprolol Tartrate (Metoprolol Tartrate 25 Mg Tab) 25 mg PO BID [facility] Last Admin: 01/19/25 08:24 Dose: 25 mg Miscellaneous Information (Potassium Replacement Protocol 1 Each Misc) 1 each MISCELLANE DAILY PRN; Protocol PRN Reason: Per Protocol Miscellaneous Information (Magnesium Replacement Protocol 1 Each Misc) 1 each MISCELLANE DAILY PRN; Protocol PRN Reason: Per Protocol Ondansetron HCl (Ondansetron 4 Mg/2 Ml Vial) 4 mg IVP Q6HR PRN PRN Reason: Nausea And Vomiting Last Admin: 01/14/25 21:53 Dose: 4 mg Pantoprazole Sodium (Pantoprazole 40 Mg Tablet) 40 mg PO AC-BRKFST [facility] Last Admin: 01/19/25 06:36 Dose: 40 mg Potassium Bicarbonate (Potassium Bicarbonate/Cit Ac 20 Meq Tablet.Eff) 40 meq PO ONCE ONE Stop: 01/19/25 16:01 Senna/Docusate Sodium (Sennosides-Docusate Sodium 1 Each Tab) 2 each PO HS [facility] Last Admin: 01/18/25 19:51 Dose: Not Given Sodium Chloride (Sodium Chloride 0.9% Flush 10 Ml Syringe) 10 ml IV BID [facility] Last Admin: 01/19/25 08:24 Dose: 10 ml Social history: Non-smoker. Alcohol rarely. Physical examination: VITAL SIGNS: 62, 16, 108 x 76, 97% room air GENERAL: Up in recliner EYES: Pupils equal. Conjunctiva wicho l. HEENT: [External appearance of nose and ears normal, endotracheal tube NECK: JVD unable to assess; masses not palpable. HEART: First and second heart sounds are normal; no edema. LUNGS: Respiratory rate normal; decreased breath sound. ABDOMEN: Soft, nontender, liver spleen not palpable, no masses palpable. Delgado catheter-discontinued PSYCH: AO x 3, mood affect normal MUSCULOSKELETAL:No Clubbing/cyanosis;muscles-grossly intact INVESTIGATIONS, reviewed in the clinical context: January 19: White count 7.3 hemoglobin 8.3 platelets 193 potassium 3.5 creatinine 1.1 January 18: White count 7.8 hemoglobin 8.5 potassium 3.6 creatinine 1.04 January 9: White count 8.0 hemoglobin 8.0 platelets 110 sodium 127 potassium 4.1 creatinine 0.86 January 8: White count 10.6 hemoglobin 8.6 platelets 119 potassium 4.3 creatinine 1.0. Magnesium 1.9 iron 9 TIBC 230% saturation 3.9 transferrin 164 ferritin 56.5 B12 264 folate 0.8 May 7: White count 1.1 hemoglobin 10 platelets 151 potassium 4 creatinine 0.85 January 14, 2025: White count 8.5 hemoglobin 9.7 platelets 122 sodium 137 potassium 4.5 BUN 11 creatinine 0.91 albumin 2.8 Previous labs: January 07, 2025: White count 4.2 hemoglobin 11.5 platelets 242 December 09, 2024 LDL 132 Assessment plan: - Bicuspid aortic valve with severe regurgitation and moderate stenosis ascending aortic aneurysm at 4.5 cm. Stable over 5 years.: Followed by aortic valve replacement with pericardial bioprosthesis and ascending aorta replacement with a graft by Dr. Corona - 2 mediastinal chest tubes and 1 right pleural chest tube.: Removed -IV insulin drip. Being discontinued -Status post postop ventilator assist, patient extubated - Hypoalbuminemia, postop. Acute phase reactant. Received IV albumin - Recurrent paroxysmal t atrial fibrillation bolus IV amiodarone. Lopressor 12.5 mg twice daily Eliquis - Hyperlipidemia Statins -Acute postprocedure blood loss anemia expected from surgery. With iron deficiency B12 folate normal IV iron x 3 bags - Essential hypertension Lopressor 12.5 twice daily - Chronic DVT Eliquis being started today - Primary osteoarthritis Pain medication as needed - Factor V Leiden mutation On Eliquis- Activity as tolerated Thank you Dr. Corona Past Medical History Past Medical History: Asthma, Blood Disorder, Deep Vein Thrombosis (DVT), Hyperlipidemia, Osteoarthritis (OA) Additional Past Medical History / Comment(s): EXERCISE INDUCED ASTHMA, MIGRAINES, TORN LEFT MENISCUS, FACTOR 5 LEIDEN, VARICOSE VEIN RIGHT LEG, HX KIDNEY STONES. History of Any Multi-Drug Resistant Organisms: None Reported Past Surgical History: Heart Catheterization, Hernia Repair, Orthopedic Surgery Additional Past Surgical History / Comment(s): HERNIA REPAIR X2, RIGHT MENISCUS REPAIR, LEFT KNEE SURGERY, RIGHT ACL REPAIR, PROCEDURE FOR KIDNEY STONE, SONY. Past Anesthesia/Blood Transfusion Reactions: No Reported Reaction Additional Past Anesthesia/Blood Transfusion Reaction / Comm: DIFFICULTY WAKING UP - STATES GROGGY FOR HOURS. Smoking Status: Never smoker
--- NOTE | 2025-01-19 16:03 | P.PN ---
Subjective Progress Note Date: 01/19/25 HPI Patient has history of bicuspid aortic valve with severe regurgitation and moderate stenosis along with ascending aorta aneurysm measuring at 4.5 cm. He also has history of factor V Leyden deficiency along with prior history of 2 DVTs hypertension dyslipidemia and exercise-induced asthma. He underwent surgical aortic valve replacement along with supra coronary ascending aortic replacement with endovascular graft, and atrial clip ligation. SUBJECTIVE: 01/18 Over last 2 days patient has been having intermittent bouts of atrial fibrillation. Previously he received few boluses of amiodarone however is difficult to track how much of amiodarone has he received. He did receive magnesium infusions which helped his heart rates. 01/19/2025 Telemetry shows sinus rhythm, much less ectopy and no further episodes of intermittent atrial fibrillation noticed since optimization of beta-chaparro and amiodarone. Blood pressure is better controlled and is tolerating low-dose losartan. Denies any chest pain chest pressure. No acute overnight events PHYSICAL EXAMINATION Eyes: Sclerae nonicteric. Neck: Brisk carotid upstroke, no jugular venous distention. Lungs: Clear to auscultation. Heart: Irregularly irregular pulse, minimal outflow tract murmur audible, surgical scar healing well Abdomen: Soft nontender, bowel sounds present, Extremities: No edema, Neuro: Alert, oriented, no focal neurological deficits. Detailed neuro exam was not performed. ASSESSMENT Bicuspid aortic valve with severe regurgitation moderate stenosis status post surgical aortic valve placement Surgical supra coronary ascending aorta replacement with graft Paroxysmal atrial fibrillation History of factor V Leyden deficiency on anticoagulation Essential hypertension Dyslipidemia PLAN Low-dose losartan for afterload reduction Increase metoprolol to 25 mg twice daily. Start p.o. amiodarone 200 mg 3 times daily for first week. From second week reduce it to 200 mg twice daily and from third week reduce it to 200 mg daily. Maintain amiodarone for total of 1 month and thereafter discontinue Anticipate discharge in next 24 hours Objective - Vital Signs Vital signs: Vital Signs Temp 98 F 01/19/25 08:20 Pulse 108 H 01/19/25 08:20 Resp 16 01/19/25 08:20 BP 108/76 01/19/25 08:20 Pulse Ox 97 01/19/25 08:20 FiO2 21 01/18/25 08:34 Intake & Output 01/18/25 01/19/25 01/19/25 18:59 06:59 18:59 Intake Total 590 560 250 Output Total 550 400 Balance 40 160 250 Weight 84.3 kg Intake: IV 20 20 10 Invasive Line 5 20 20 10 Oral 570 540 240 Output: Urine 550 400 Other: Voiding Method Toilet Toilet Toilet Urinal Urinal Urinal # Voids 2 2 # Bowel Movements 1 ABP, PAP, CO, CI - Last Documented Arterial Blood Pressure 133/90 Pulmonary Artery Pressure 14/4 Cardiac Output 5.5 Cardiac Index 3.1 - Labs CBC & Chem 7: 01/19/25 07:42 01/19/25 07:42 Labs: Abnormal Lab Results - Last 24 Hours (Table) 01/18/25 01/18/25 01/19/25 Range/Units 16:44 19:56 06:09 RBC (4.40-5.60) 10*6/uL Hgb (13.0-17.0) g/dL Hct (39.6-50.0) % MCH (27.0-32.0) pg Sodium (137-145) mmol/L Glucose (74-99) mg/dL POC Glucose (mg/dL) 151 H 165 H 125 H (70-110) mg/dL 01/19/25 01/19/25 Range/Units 07:42 07:42 RBC 3.11 L (4.40-5.60) 10*6/uL Hgb 8.3 L (13.0-17.0) g/dL Hct 25.4 L (39.6-50.0) % MCH 26.7 L (27.0-32.0) pg Sodium 135 L (137-145) mmol/L Glucose 116 H (74-99) mg/dL POC Glucose (mg/dL) (70-110) mg/dL
[2025-01-19 16:35] LABS: Glucose,Whole Blood 119 mg/dL (70-110)
[2025-01-19 20:33] LABS: Glucose,Whole Blood 138 mg/dL (70-110)
[2025-01-20 04:39] VITALS: RESP 18
[2025-01-20 06:06] LABS: Glucose,Whole Blood 114 mg/dL (70-110)
[2025-01-20 06:39] LABS: HCT 26.3 % (39.6-50.0); HGB 8.3 g/dL (13.0-17.0); MCH 26.2 pg (27.0-32.0); MCHC 31.6 g/dL (32.0-37.0); Mean Platelet Volume 11.3 fL (9.5-12.2); Platelet Count 213 10*3/uL (140-440); RBC 3.17 10*6/uL (4.40-5.60); RDW 15.7 % (11.5-14.5); WBC 8.03 10*3/uL (4.50-10.00)
[2025-01-20 06:59] LABS: African American GFR (CKD) 86 (>60 ml/min/1.73 sqM); Anion Gap 9 mmol/L; Blood Urea Nitrogen 19 mg/dL (9-20); Calcium 8.7 mg/dL (8.4-10.2); Carbon Dioxide 26 mmol/L (22-30); Chloride 99 mmol/L (98-107); Glucose 110 mg/dL (74-99); Non-African American GFR(CKD) 75 (>60 ml/min/1.73 sqM); Potassium 3.8 mmol/L (3.5-5.1); Sodium 134 mmol/L (137-145)
--- NOTE | 2025-01-20 08:10 | P.PN ---
Subjective Progress Note Date: 01/20/25 Principal diagnosis: Bicuspid aortic valve with severe regurgitation and moderate stenosis, ascending aortic aneurysm at 4.5 cm stable over 5 years, and preserved left ventricular function. Previous medical history of factor V Leiden disorder on Eliquis as an outpatient, 2 deep vein thrombosis episodes to his right lower extremity (1 after an ACL repair and another 1 spontaneous), hypertension, hyperlipidemia, exercise-induced asthma, osteoarthritis and lifelong non-smoker. POD #6 aortic valve replacement using a 27 mm Inspiris pericardial bioprosthesis, supra coronary ascending aortic replacement using a 32 mm Gelweave graft, exclusion left atrial appendage using a 40 mm Atriclip, intraoperative transesophageal echocardiogram and epiaortic scanning. Postoperative acute blood loss anemia, expected given hemodilution and cardiopulmonary bypass. Postoperative paroxysmal atrial fibrillation, a known common occurrence after cardiac surgery. The patient was seen and examined this morning sitting up in recliner on the cardiac stepdown unit in no acute distress. Currently in sinus rhythm and hemodynamically stable. States pain is mostly controlled on current medication regimen, denies shortness of breath. Remains on room air with oxygen saturation in the high 90s, able to achieve 1500 mL on his incentive spirometry. Chest x- ray, labs reviewed. Patient has been ambulatory without difficulty. Anticipates discharge to home today with home care. Objective - Vital Signs Vital signs: Vital Signs Temp 98.1 F 01/20/25 04:00 Pulse 110 H 01/20/25 04:00 Resp 18 01/20/25 04:00 BP 134/75 01/20/25 04:00 Pulse Ox 98 01/20/25 04:00 FiO2 21 01/18/25 08:34 Intake & Output 01/19/25 01/20/25 01/20/25 18:59 06:59 18:59 Intake Total 250 240 Balance 250 240 Weight 84.4 kg Intake: IV 10 Invasive Line 5 10 Oral 240 240 Other: Voiding Method Toilet Toilet Urinal Urinal # Voids 1 ABP, PAP, CO, CI - Last Documented Arterial Blood Pressure 133/90 Pulmonary Artery Pressure 14/4 Cardiac Output 5.5 Cardiac Index 3.1 - Exam CONSTITUTIONAL: Appears comfortable, cooperative, no acute distress RESPIRATORY: Lungs sounds diminished in the bases bilaterally. Respirations even, nonlabored. Currently on room air with oxygen saturation 98%. Able to achieve 1500 mL on incentive spirometry. Strong cough. CARDIOVASCULAR: S1, S2 present. Regular rate and rhythm, sinus rhythm on telemetry. Sternum stable. Palpable peripheral pulses bilaterally. No edema present. No calf pain or tenderness noted. Heart hugger in place with patient demonstrating appropriate use. Antiembolism stockings, SCDs present. GASTROINTESTINAL: Abdomen soft, nontender, nondistended. Active bowel sounds present 4 quadrants. Tolerating diet. Positive bowel movement x5 5/10 GENITOURINARY: Continues to void INTEGUMENTARY: Skin is warm and dry with evidence of good perfusion. Anterior chest incision well approximated NEUROLOGIC: Cranial nerves II through XII intact MUSKULOSKELETAL: Able to move all extremities, strength equal bilaterally, gait normal PSYCHIATRIC: Alert and oriented to person place and time, appropriate affect, intact judgment and insight - Allied health notes Allied health notes reviewed: nursing - Labs CBC & Chem 7: 01/20/25 05:40 01/20/25 05:40 Labs: Abnormal Lab Results - Last 24 Hours (Table) 01/19/25 01/19/25 01/19/25 Range/Units 07:42 16:31 20:31 RBC (4.40-5.60) 10*6/uL Hgb (13.0-17.0) g/dL Hct (39.6-50.0) % MCH (27.0-32.0) pg MCHC (32.0-37.0) g/dL Sodium 135 L (137-145) mmol/L Glucose 116 H (74-99) mg/dL POC Glucose (mg/dL) 119 H 138 H (70-110) mg/dL 01/20/25 01/20/25 01/20/25 Range/Units 05:40 05:40 06:05 RBC 3.17 L (4.40-5.60) 10*6/uL Hgb 8.3 L (13.0-17.0) g/dL Hct 26.3 L (39.6-50.0) % MCH 26.2 L (27.0-32.0) pg MCHC 31.6 L (32.0-37.0) g/dL Sodium 134 L (137-145) mmol/L Glucose 110 H (74-99) mg/dL POC Glucose (mg/dL) 114 H (70-110) mg/dL - Imaging and Cardiology Chest x-ray: image reviewed Assessment and Plan Assessment: Bicuspid aortic valve with severe regurgitation and moderate stenosis, status post aortic valve replacement Ascending aortic aneurysm at 4.5 cm stable over 5 years, status post supra coronary ascending aortic replacement Preserved left ventricular function, EF 55 to 60% Postoperative acute blood loss anemia, expected given hemodilution and cardiopulmonary bypass. Postoperative paroxysmal atrial fibrillation, a known common occurrence after cardiac surgery. History of factor V Leiden disorder on Eliquis as an outpatient 2 deep vein thrombosis episodes to his right lower extremity (1 after an ACL repair and another 1 spontaneous) Hypertension Hyperlipidemia, Exercise-induced asthma Osteoarthritis Lifelong non-smoker. Plan: Continue to maximize medical therapy with low-dose aspirin, statin, and beta- chaparro. Continue Eliquis Continue Cozaar for afterload reduction with hold parameters Encourage incentive spirometry use 10 times every hour while awake. Bronchodilators per pulmonology. Will monitor daily labs and chest x-rays. Electrolyte replacement per protocol. Increase activity, ambulate as tolerated. PT/OT/cardiac rehab following. GI/DVT prophylaxis. Pain control per current medication regimen. Insulin management per internal medicine. Preoperative hemoglobin A1c 5.8%. Continue to monitor and record strict accurate intake and output Discharge planning in progress, anticipate discharge to home with home care today More recommendations to follow based on patient's clinical course
--- NOTE | 2025-01-20 08:22 | XR ---
EXAMINATION TYPE: XR chest 2V DATE OF EXAM: 01/20/2025 6:34 AM COMPARISON: 01/19/2025 CLINICAL INDICATION: Male, 59 years old with history of Postcardiac surgery, , TECHNIQUE: PA and lateral views FINDINGS: Median sternotomy wires and prosthetic aortic valve. Heart remains mildly enlarged. Small left pleura l effusion with retrocardiac opacity remains. Trace pleural effusion on the right also demonstrated o n the lateral view. IMPRESSION: Small left and trace right pleural effusions. Prominent adjacent retrocardiac atelectasis and/or cons olidation. Overall unchanged. [facility], Workstation: [id number], 01/20/2025 8:19 AM
[2025-01-20 08:50] VITALS: BP 124/67; PULSE 85; TEMP 97.7
[2025-01-20] MEDS: POTASSIUM CHLORIDE ER 20 MEQ TAB.ER PO STA (08:52)
[2025-01-20] MEDS: LOSARTAN 50 MG TAB PO SCH (11:47)
--- NOTE | 2025-01-20 11:49 | P.PN ---
Subjective HISTORY OF PRESENT ILLNESS: Patient is status post aortic valve replacement and ascending aortic replacement. Postop day #6. Patient examined this morning. He is sitting up in the chair. Patient denies any chest pain or pressure. He denies shortness of breath. Telemetry reveals sinus mechanism with PACs. Blood pressure stable. PHYSICAL EXAM: VITAL SIGNS: Reviewed. GENERAL: Well-developed in no acute distress. NECK: Supple. No JVD or thyromegaly LUNGS: Respirations even and unlabored. Lungs essentially clear to auscultation bilaterally. HEART: Regular rate and rhythm. S1 and S2 heard. EXTREMITIES: Normal range of motion. No clubbing or cyanosis. Peripheral pulses intact. No lower extremity edema ASSESSMENT: Bicuspid aortic valve with severe regurgitation and moderate stenosis, status post aortic valve replacement Ascending aortic aneurysm, status post supra coronary ascending aortic replacement Postoperative paroxysmal atrial fibrillation History of factor V Leyden disorder, on Eliquis outpatient History of DVT Hypertension Hyperlipidemia PLAN: Continue current cardiac medications including amiodarone, Eliquis, aspirin, Lipitor, losartan, and metoprolol Continue postoperative management per CT surgery Increase activity as tolerated Encourage use of incentive spirometer Patient is stable for discharge today from a cardiac standpoint Patient to follow-up postdischarge with Dr. Dee Nurse practitioner note has been reviewed by physician. Signing provider agrees with the documented findings, assessment, and plan of care documented by LEAD BUSINESS ANALYST as a scribe. Objective - Vital Signs Vital signs: Vital Signs Temp 97.7 F 01/20/25 08:00 Pulse 85 01/20/25 08:00 Resp 18 01/20/25 08:00 BP 124/67 01/20/25 08:00 Pulse Ox 95 01/20/25 08:00 FiO2 21 01/18/25 08:34 Intake & Output 01/19/25 01/20/25 01/20/25 18:59 06:59 18:59 Intake Total 250 240 250 Balance 250 240 250 Weight 84.4 kg Intake: IV 10 10 Invasive Line 5 10 10 Oral 240 240 240 Other: Voiding Method Toilet Toilet Toilet Urinal Urinal Urinal # Voids 1 ABP, PAP, CO, CI - Last Documented Arterial Blood Pressure 133/90 Pulmonary Artery Pressure 14/4 Cardiac Output 5.5 Cardiac Index 3.1 - Labs CBC & Chem 7: 01/20/25 05:40 01/20/25 05:40 Labs: Abnormal Lab Results - Last 24 Hours (Table) 01/19/25 01/19/25 01/20/25 Range/Units 16:31 20:31 05:40 RBC 3.17 L (4.40-5.60) 10*6/uL Hgb 8.3 L (13.0-17.0) g/dL Hct 26.3 L (39.6-50.0) % MCH 26.2 L (27.0-32.0) pg MCHC 31.6 L (32.0-37.0) g/dL Sodium (137-145) mmol/L Glucose (74-99) mg/dL POC Glucose (mg/dL) 119 H 138 H (70-110) mg/dL 01/20/25 01/20/25 Range/Units 05:40 06:05 RBC (4.40-5.60) 10*6/uL Hgb (13.0-17.0) g/dL Hct (39.6-50.0) % MCH (27.0-32.0) pg MCHC (32.0-37.0) g/dL Sodium 134 L (137-145) mmol/L Glucose 110 H (74-99) mg/dL POC Glucose (mg/dL) 114 H (70-110) mg/dL
--- NOTE | 2025-01-20 13:12 | P.DS ---
Providers Date of admission: 01/14/25 05:35 Expected date of discharge: 01/20/25 Attending physician: Gisell Corona Consults: 01/14/25 13:57 Consult Physician Routine Consulting Provider: Rosendo Slade Consult Reason/Comments: Reed Press Feeder Consult: post cardiac surgery Do you want consulting provider notified?: Yes Consult Physician Routine Consulting Provider: Gopi Rodriguez Consult Reason/Comments: Hide Curer Consult: post cardiac surgery Do you want consulting provider notified?: Yes Consult Physician Routine Consulting Provider: David Govea Consult Reason/Comments: insulin management; [facility] patient Do you want consulting provider notified?: Yes Primary care physician: Gurpreet Carbone Hospital Course: FINAL DIAGNOSIS: Bicuspid aortic valve with severe regurgitation and moderate stenosis Ascending aortic aneurysm at 4.5 cm stable over 5 years Preserved left ventricular function, EF 55 to 60% Postoperative acute blood loss anemia, expected given hemodilution and cardiopulmonary bypass. Postoperative paroxysmal atrial fibrillation, a known common occurrence after cardiac surgery. History of factor V Leiden disorder on [facility] as an outpatient 2 deep vein thrombosis episodes to his right lower extremity (1 after an ACL repair and another 1 spontaneous) Hypertension Hyperlipidemia, Exercise-induced asthma Osteoarthritis Lifelong non-smoker. PRINCIPAL PROCEDURE: Aortic valve replacement using a 27 mm Inspiris pericardial bioprosthesis Supra coronary ascending aortic replacement using a 32 mm Gelweave graft Exclusion left atrial appendage using a 40 mm Atriclip Intraoperative transesophageal echocardiogram and epiaortic scanning HISTORY OF PRESENT ILLNESS: This is a 59-year-old gentleman who follows outpatient with a physician at Dr. Carbone's office for internal medicine and Dr. Dee for cardiology. This gentleman was reportedly very active, worked out on a regular basis and ran daily. Unfortunately for the last several weeks he had been unable to be as active as he would like, and had progressive shortness of breath. He actually started to develop some chest pain so he reported to [facility] emergency room December 07, 2024 for evaluation and treatment. EKG in the emergency room demonstrated sinus bradycardia with heart rate in the high 40s. Chest x-ray revealed no acute cardiopulmonary process. Lab work revealed WBC 7.1, hemoglobin 12.2, creatinine 1.08, BNP 131, and troponins were negative x 3. He was admitted for evaluation and treatment with consultation placed to cardiology. 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 For further evaluation he underwent transesophageal echocardiogram by Dr. Dee confirming bicuspid aortic valve with fusion of the right and left coronary cusps, severe aortic regurgitation with eccentric jet and evidence of reversal of flow in the descending aorta, normal LV systolic function with no wall motion abnormalities, normal RV systolic function, mild biatrial enlargement, and intact intra-atrial septum. Due to these findings and the patient's known history of bicuspid aortic valve with increased symptomatology consultation was placed to cardiothoracic surgery for evaluation for aortic valve replacement. He was seen by Dr. Corona and recommended to have heart catheterization for completeness. He was discharged to home, scheduled electively for heart catheterization revealing normal coronary arteries, and he followed up in the office with Dr. Corona. He was recommended to undergo aortic valve replacement and ascending aorta replacement. The usual perioperative course was discussed in detail with the patient and his family, all risks and benefits were explain ed, all questions were answered, and consent was obtained to proceed with surgery. The patient was scheduled for surgery after obtaining dental clearance. HOSPITAL COURSE: The patient was brought to the hospital on 01/14/25, taken to the preoperative area, prepared in the usual fashion, and subsequently taken to the operating room where Dr. Corona performed aortic valve replacement along with supra coronary ascending aortic replacement. Upon completion of surgery the patient was transferred to the cardiovascular intensive care unit where he was recovered and monitored hemodynamically. He was extubated, all lines, tubes, and drips were discontinued when appropriate. He did experience postoperative paroxysmal atrial fibrillation which was treated with amiodarone and beta- chaparro and his home dose of Eliquis was readded. He was transferred to 3 S. cardiac stepdown unit for further monitoring and rehabilitation. His oxygen was titrated down, he continued to work with physical and occupational therapy, he was tolerating oral diet, his pain was controlled, and he was ready to be discharged to home with [facility] care on postoperative day #6. He received written and verbal instruction regarding his medications, activity restrictions, signs and symptoms requiring physician notification, and follow-up appointments. Patient Condition at Discharge: Stable Plan - Discharge Summary Discharge Rx Participant: Yes New Discharge Prescriptions: New Aspirin 81 mg PO DAILY #30 tab Amiodarone [Cordarone] 200 mg PO TID #60 tab Metoprolol Tartrate [Lopressor] 25 mg PO BID #60 tab Pantoprazole [Protonix] 40 mg PO AC-BRKFST #30 tab Losartan [Cozaar] 50 mg PO DAILY@1200 #30 tab Sennosides-Docusate Sodium [Senokot-S] 2 each PO HS PRN tab PRN Reason: Constipation Acetaminophen Tab [Tylenol] 650 mg PO Q4HR PRN tab PRN Reason: Fever And/ Or Mild Pain (1-3) Continue Simvastatin [Zocor] 40 mg PO HS Apixaban [Eliquis] 5 mg PO BID Albuterol Sulfate/Budesonide [Airsupra 90-80 Mcg Inhaler] 1 puff INHALATION RT-QID PRN PRN Reason: SOB/Wheeze/Cough Ibuprofen [Motrin Ib] 200 mg PO Q6H PRN PRN Reason: Pain Discontinued lisinopriL 2.5 mg PO HS Aspirin 325 mg PO ONCE Discharge Medication List Simvastatin [Zocor] 40 mg PO HS 09/14/17 [History] Apixaban [Eliquis] 5 mg PO BID 04/28/22 [History] Albuterol Sulfate/Budesonide [Airsupra 90-80 Mcg Inhaler] 1 puff INHALATION RT- QID PRN 12/07/24 [History] Ibuprofen [Motrin Ib] 200 mg PO Q6H PRN 12/07/24 [History] Acetaminophen Tab [Tylenol] 650 mg PO Q4HR PRN tab 01/20/25 [Rx] Amiodarone [Cordarone] 200 mg PO TID #60 tab 01/20/25 [Rx] Aspirin 81 mg PO DAILY #30 tab 01/20/25 [Rx] Losartan [Cozaar] 50 mg PO DAILY@1200 #30 tab 01/20/25 [Rx] Metoprolol Tartrate [Lopressor] 25 mg PO BID #60 tab 01/20/25 [Rx] Pantoprazole [Protonix] 40 mg PO AC-BRKFST #30 tab 01/20/25 [Rx] Sennosides-Docusate Sodium [Senokot-S] 2 each PO HS PRN tab 01/20/25 [Rx] Follow up Appointment(s)/Referral(s): Rehab [facility] HUANG,Cardiac [NON-STAFF] - 4 Weeks (You will receive a phone call in approximately 4-6 weeks for evaluation for cardiac rehab) Claudia Blackwood,Home Care [NON-STAFF] - 1-2 Days (You should be seen by home care registered nurse the day after discharge, then 2-3 times per week until you start cardiac rehab. Physical and occupational therapy should visit at least once, may continue to visit if needed) Nabeel Dee MD [STAFF PHYSICIAN] - 02/05/25 4:30 pm Gisell Corona MD [STAFF PHYSICIAN] - 02/21/25 10:00 am Shane Milan NPC [Nurse Practitioner] - 01/27/25 10:00 am (You will be seen in the surgeon's office behind the hospital in [facility], [address] [place] [address] [address]. Office phone number is ) Rosendo Slade DO [Doctor of Osteopathic Medicine] - 03/04/25 2:00 pm Pietro Chance DO [REFERRING] - 01/30/25 12:30 pm Ambulatory/Diagnostic Orders: Complete Blood Count w/diff [LAB.AMB] Time Frame: 3 Days, Location: None Selected Comprehensive Metabolic Panel [LAB.AMB] Time Frame: 3 Days, Location: None Selected Activity/Diet/Wound Care/Special Instructions: DISCHARGE INSTRUCTIONS: 1. No driving for 4 weeks, or until physician gives their ok. 2. The patient should sleep in their own bed, no medical bed needed. 3. Stairs are not an issue. If the bedroom is upstairs, it is advised that the patient go up at night and down in the morning for the first week. Go slowly, using handrail and take 1 step at a time. 4. ZUNILDA hose are to be worn for 30 days post surgery or until physician discontinues. 5. Heart hugger is to be worn 100% of the time until physician discontinues.(except when showering) 6. No lifting, pushing, or pulling more than 10 pounds for 12 weeks. The physician will advise of any restriction changes. 7. The patient is expected to continue the prescribed walking program. 8. Continue pain control per as needed orders. 9. Continue with incentive spirometry and splinting/heart hugger until otherwise directed by the physician. 10. Must shower daily using liquid antibacterial soap 11. Routine sternal incision care. No powders, lotions, ointments on incisions. No dressings are necessary on incisions unless they are draining. Dermabond tape is to remain on sternal incision until surgeon follow-up. 12. Please call surgeon/BLUEPRINT TRIMMER for temp greater than 101 F or purulent drainage from incisions. 13. You should weigh yourself daily, record and bring log with you to follow up appointments. 14. All prescriptions given by surgeon for 30 days. Refills need to be filled through junior engineer/primary care physician. 15. A Red armband has been placed on the patient. It should be worn for 30 days post discharge from surgery and will be removed by the cardiac surgeons. If an ER visit is necessary, please make sure the number on the Red armband is called before going to ER. 16. You have been referred to and are expected to begin Cardiac Rehab in approximately 4-6 weeks. 17. Quitting smoking is the most important step you can take to improve your health. For additional information and assistance to quit smoking, please call the [place] tobacco quit line (2-556-CQDV-NOW/ ) or online: [email or web address] HOME HEALTH SERVICES TO PROVIDE: RN SKILLED HOME CARE SERVICES FOR POST-OP SURGICAL PATIENTS WITH THE FOLLOWING: Coronary Artery Bypass Surgery (CABG), Mitral Valve Replacement/Repair ( MVR), Aortic Valve Replacement/Repair (AVR) RN TO CONTINUE EDUCATION FROM ``ROAD TO A HEALTH HEART PATIENT EDUCATION MANUAL (GIVEN TO PATIENT IN THE HOSPITAL) MEDICATION RECONCILIATION WITH EDUCATION NEEDED ON FIRST HOME VISIT EMPHASIZE IMPORTANCE OF WEARING BREAST SUPPORT/HEART HUGGER ENCOURAGE USE OF INCENTIVE SPIROMETER 10 X EVERY HOUR WHILE AWAKE ENCOURAGE UTILIZATION OF LOWER EXTREMITY COMPRESSION STOCKINGS/ZUNILDA HOSE and ELEVATE LEGS ABOVE LEVEL OF HEART WHILE AT REST. ENCOURAGE AMBULATION 3-5x/day INCREASING TOLERATES, WHILE AVOIDING EXTREMES IN TEMPERATURE FREQUENCY: RN TO OPEN THE PATIENT WITHIN 24 HOURS OF DISCHARGE FROM THE HOSPITAL WITH TELEHEALTH [place] [facility] TO VISIT 2-3 X A WEEK FOR 4 WEEKS ESTABLISHED BY PATIENT NEEDS. LABORATORY: CBC, CMP TO BE DRAWN ON THE THIRD DAY HOME, (RAN STAT) FAX RESULTS TO [phone]. TELEHEALTH PARAMETERS: WEIGHT: NOTIFY MD OF WEIGHT GAIN OF 2 LBS IN 24 HOURS OR 5 LBS IN ONE WEEK HR: NOTIFY MD OF HR <55 BPM OR HR>100 BPM BP: NOTIFY MD IF BP <90/55 OR BP>140/100 O2 SAT: NOTIFY MD IF PO2<93% ON ROOM AIR SEND TELEHEALTH REPORT TO SALES REPRESENTATIVE DOOR TO DOOR AND CARDIOVASCULAR SURGEON THE FIRST WEEK OF CARE AND THEN BI-WEEKLY. PLEASE ADDITIONALLY COMMUNICATE ANY ABNORMALS AND NEW FINDINGS TO THE SURGEONS OFFICE. Discharge Disposition: HOME WITH HOME HEALTH SERVICES
--- NOTE | 2025-01-20 13:29 | P.PN ---
Subjective Progress Note Date: 01/20/25 On 01/20/2025, the patient is being seen for a follow-up. Patient is doing well. No specific complaints. Tentative plan is for discharge today. The patient is going home with home care and the patient is currently postop day #6. The patient underwent aortic valve replacement with a 27 mm Inspiris pericardial bioprosthesis and left atrial appendage exclusion. The patient is doing well. The patient is currently on room air oxygen. Chest tubes have been removed. The patient has a stable hemoglobin of 8.3, white cell count is at 8, platelet count is 213, BUN is 19 with a creatinine of 1.08. Sodium is at 134. Ambulating. He remains on aspirin. He remains on anticoagulation with Eliquis 5 mg p.o. twice a day. He is also on metoprolol 25 mg p.o. twice a day and Cozaar 50 mg p.o. daily. He remains on Lipitor 40 mg p.o. daily. No altered mentation. No other significant events overnight. Objective - Vital Signs Vital signs: Vital Signs Temp 97.7 F 01/20/25 08:00 Pulse 85 01/20/25 08:00 Resp 18 01/20/25 08:00 BP 124/67 01/20/25 08:00 Pulse Ox 95 01/20/25 08:00 FiO2 21 01/18/25 08:34 Intake & Output 01/19/25 01/20/25 01/20/25 18:59 06:59 18:59 Intake Total 250 240 250 Balance 250 240 250 Weight 84.4 kg Intake: IV 10 10 Invasive Line 5 10 10 Oral 240 240 240 Other: Voiding Method Toilet Toilet Toilet Urinal Urinal Urinal # Voids 1 ABP, PAP, CO, CI - Last Documented Arterial Blood Pressure 133/90 Pulmonary Artery Pressure 14/4 Cardiac Output 5.5 Cardiac Index 3.1 - Exam CONSTITUTIONAL: Appears comfortable, cooperative, no acute distress RESPIRATORY: Lungs sounds diminished in the bases bilaterally. Respirations even, nonlabored. Currently on room air with oxygen saturation 98%. Able to achieve 1500 mL on incentive spirometry. Strong cough. CARDIOVASCULAR: S1, S2 present. Regular rate and rhythm, sinus rhythm on telemetry. Sternum stable. Palpable peripheral pulses bilaterally. No edema present. No calf pain or tenderness noted. Heart hugger in place with patient demonstrating appropriate use. Antiembolism stockings, SCDs present. GASTROINTESTINAL: Abdomen soft, nontender, nondistended. Active bowel sounds present 4 quadrants. Tolerating diet. Positive bowel movement x5 5/10 GENITOURINARY: Continues to void INTEGUMENTARY: Skin is warm and dry with evidence of good perfusion. Anterior chest incision well approximated NEUROLOGIC: Cranial nerves II through XII intact MUSKULOSKELETAL: Able to move all extremities, strength equal bilaterally, gait normal PSYCHIATRIC: Alert and oriented to person place and time, appropriate affect, intact judgment and insight - Labs CBC & Chem 7: 01/20/25 05:40 01/20/25 05:40 Labs: Abnormal Lab Results - Last 24 Hours (Table) 01/19/25 01/19/25 01/20/25 Range/Units 16:31 20:31 05:40 RBC 3.17 L (4.40-5.60) 10*6/uL Hgb 8.3 L (13.0-17.0) g/dL Hct 26.3 L (39.6-50.0) % MCH 26.2 L (27.0-32.0) pg MCHC 31.6 L (32.0-37.0) g/dL Sodium (137-145) mmol/L Glucose (74-99) mg/dL POC Glucose (mg/dL) 119 H 138 H (70-110) mg/dL 01/20/25 01/20/25 Range/Units 05:40 06:05 RBC (4.40-5.60) 10*6/uL Hgb (13.0-17.0) g/dL Hct (39.6-50.0) % MCH (27.0-32.0) pg MCHC (32.0-37.0) g/dL Sodium 134 L (137-145) mmol/L Glucose 110 H (74-99) mg/dL POC Glucose (mg/dL) 114 H (70-110) mg/dL Assessment and Plan Plan: Bicuspid aortic valve with severe regurgitation and moderate stenosis, ascending aortic aneurysm at 4.5 cm. Status post aortic valve replacement utilizing a 27 mm Inspiris pericardial bioprosthetic. Ascending aortic replacement utilizing a 32 mm Gelweave graft. Exclusion of left atrial appendage. Postoperative day # 6. Postthoracotomy, currently on room air oxygen. Chest tube will be removed Ascending aortic aneurysm 4.5 cm in size post supra coronary ascending aortic replacement. The patient has a preserved LV function with an ejection fraction of 55 to 60% Atrial fibrillation with rapid ventricular response, currently in sinus and the patient is currently on amiodarone and anticoagulation with Eliquis and beta- blockers History of factor V Leiden deficiency. The patient has had previous history of DVTs of the right lower extremity Hyperlipidemia. Hypertension Osteoarthritis Postoperative acute blood loss anemia, expected outcome of surgery related to hemodilution and coronary artery bypass. Plan: Patient to be discharged home today Continues incentive spirometer Patient currently on room air oxygen Continue metoprolol Continue Cozaar Continue amiodarone 200 mg 3 times daily Continue aspirin Continue Eliquis 5 mg p.o. twice a day Discharge today to be followed up on outpatient basis.
== END 2025-01-20 11:45 | disposition home health service (06) | DRG 220 ==
LOC: 2ORMAIN 01-14 05:35 → 2SICU 01-14 10:56 → 3SCARD 01-17 21:09
PROVIDERS: ADMIT Surgery; ATTEND Surgery
DX: I35.0 Nonrheumatic aortic (valve) stenosis (principal); D62 Acute posthemorrhagic anemia; E88.09 Other disorders of plasma-protein metabolism, not elsewhere classified; I71.21 Aneurysm of the ascending aorta, without rupture; J45.990 Exercise induced bronchospasm; I10 Essential (primary) hypertension; D68.51 Activated protein C resistance; J98.11 Atelectasis; I48.0 Paroxysmal atrial fibrillation; I83.91 Asymptomatic varicose veins of right lower extremity; E78.5 Hyperlipidemia, unspecified; M19.91 Primary osteoarthritis, unspecified site; Z79.01 Long term (current) use of anticoagulants; Z79.82 Long term (current) use of aspirin; Z79.899 Other long term (current) drug therapy; Z86.718 Personal history of other venous thrombosis and embolism
CPT/HCPCS: 71045; 71046; 80048; 80053; 82330; 82607; 82728; 82746; 82805; 83036; 83540; 83550; 83735; 85025; 85027; 85610; 85730; 86850; 86891; 86900; 86901; 86920; 88305; 88311; 94002; 94640; 94760

== ENCOUNTER → 2025-01-07 | Outpatient (CLI) | payer BC ==
[2025-01-07 10:14] LABS: Partial Thromboplastin Time 25.1 sec (22.0-30.0); Prothrombin Time 10.8 sec (10.0-12.5)
[2025-01-07 14:46] LABS: HCT 37.4 % (39.6-50.0); HGB 11.5 g/dL (13.0-17.0); MCH 25.7 pg (27.0-32.0); MCHC 30.7 g/dL (32.0-37.0); MCV 83.7 FL (80.0-97.0); Mean Platelet Volume 11.1 FL (9.5-12.2); NRBC Per 100 WBC 0 X 10*3/uL (0.00-0.01); Platelet Count 252 X 10*3/uL (140-440); RBC 4.47 X 10*6/uL (4.40-5.60); RDW 14.6 % (11.5-14.5); WBC 4.28 X 10*3/uL (4.50-10.00)
[2025-01-07 15:30] LABS: ALT 13 U/L (10-49); AST 23 U/L (14-35); Albumin 4.4 g/dL (3.8-4.9); Alkaline Phosphatase 82 U/L (41-126); Blood Urea Nitrogen 11.7 mg/dL (9.0-27.0); Calcium 9.4 mg/dL (8.7-10.3); Carbon Dioxide 22.8 mmol/L (21.6-31.8); Chloride 104 mmol/L (96-109); Globulin 2.1 g/dL (1.6-3.3); Glucose 95 mg/dL (70-110); Potassium 4.9 mmol/L (3.5-5.5); Sodium 139 mmol/L (135-145); Total Bilirubin 0.6 mg/dL (0.3-1.2); Total Protein 6.5 g/dL (6.2-8.2)
== END | disposition home or self-care (01) ==
LOC: LABPAT 09:06
PROVIDERS: ATTEND Surgery
DX: Z01.810 Encounter for preprocedural cardiovascular examination (principal)
CPT/HCPCS: 80053; 85027; 85610; 85730; 86850; 86900; 86901; 86920